=== PATIENT | male | born 1970 | race Caucasian/White ===

== ENCOUNTER 2020-05-28 16:40 | Emergency (ER) | payer OTHER ==
[2020-05-28 16:51] VITALS: BP 118/84; PULSE 109; RESP 18; TEMP 97.7
[2020-05-28] MEDS ORDERED: diphenhydrAMINE 50 MG CAP PO STA (17:17)
[2020-05-28] MEDS ORDERED: CEPHALEXIN 500 MG CAP PO STA (17:18)
[2020-05-28] MEDS ORDERED: predniSONE 20 MG TAB PO STA (17:18)
--- NOTE | 2020-05-28 17:24 | ED ---
General Adult HPI - General Chief complaint: Skin/Abscess/Foreign Body Stated complaint: bug bite Time Seen by Provider: 05/28/20 16:50 Source: patient Mode of arrival: ambulatory Limitations: no limitations - History of Present Illness Initial comments: The patient is a 49-year-old male with no past medical history presents emergency Department after he sustained a bug bite to his right hand. Patient states that he noticed the bite around 10 AM today. He had surrounding swelling. Denies previous history of anaphylactic reaction to a bite. Denies drug use. No nausea or vomiting. No fevers or chills. Denies a sensation that his airway is closing off. Did not take any medications for symptoms. No other alleviating, precipitating or modifying factors - Related Data Previous Rx's Medication Instructions Recorded Docusate [Colace] 100 mg PO BID #30 capsule 01/20/16 Hydrocodone/Acetaminophen [[place] 1 each PO Q6HR PRN #20 tab 02/07/16 5-325] Cephalexin [Keflex] 500 mg PO Q6HR #28 cap 05/28/20 Sulfamethox-Tmp 800-160Mg [Bactrim 2 tab PO Q12HR #28 tab 05/28/20 DS 800-160 mg] diphenhydrAMINE [Benadryl] 25 mg PO TID PRN #20 capsule 05/28/20 Allergies Allergy/AdvReac Type Severity Reaction Status Date / Time Penicillins Allergy Rash/Hives Verified 05/28/20 16:50 Review of Systems ROS Statement: Those systems with pertinent positive or pertinent negative responses have been documented in the HPI. ROS Other: All systems not noted in ROS Statement are negative. Past Medical History Additional Past Medical History / Comment(s): back pain History of Any Multi-Drug Resistant Organisms: MRSA Date of last positivie culture/infection: 2014 MDRO Source:: stomach Past Surgical History: Appendectomy Past Psychological History: No Psychological Hx Reported Smoking Status: Current every day smoker Past Alcohol Use History: None Reported Past Drug Use History: None Reported General Exam Limitations: no limitations General appearance: alert, in no apparent distress Respiratory exam: Present: normal lung sounds bilaterally. Absent: respiratory distress, wheezes, rales, rhonchi, stridor Cardiovascular Exam: Present: regular rate, normal rhythm, normal heart sounds. Absent: systolic murmur, diastolic murmur, rubs, gallop, clicks GI/Abdominal exam: Present: soft, normal bowel sounds. Absent: distended, tenderness, guarding, rebound, rigid Extremities exam: Present: other (dorsal aspect right arm - raised area with central scab measuring 2 x 2 cm consistent with possible developing abscess) Course Vital Signs 05/28/20 05/28/20 16:48 17:40 Temperature 97.7 F 97.7 F Pulse Rate 109 H 109 H Respiratory 18 18 Rate Blood Pressure 118/84 118/84 O2 Sat by Pulse 97 97 Oximetry Medical Decision Making - Medical Decision Making Upon arrival the patient is placed into room 13. A thorough history and physical exam was performed. Evaluation of the patient's hand does reveal a central scab with surrounding cellulitis. I am concerned for infection rather than ALLERGIC reaction. I did give the patient a dose of Benadryl and prednisone as he is concerned about bite. I did recommend treatment with antibiotics for which the patient did agree to. No area of fluctuance needing drainage. The patient was felt that his primary care doctor. Return to the emergency room for any new worsening symptoms. Patient was discharged in stable condition Disposition Clinical Impression: Abscess Disposition: HOME SELF-CARE Condition: Stable Instructions (If sedation given, give patient instructions): Abscess (ED) Additional Instructions: Please follow-up with primary care doctor. Return to the emergency room for any new or worsening symptoms Prescriptions: Sulfamethox-Tmp 800-160Mg [Bactrim DS 800-160 mg] 2 tab PO Q12HR #28 tab diphenhydrAMINE [Benadryl] 25 mg PO TID PRN #20 capsule PRN Reason: Allergic Reaction Cephalexin [Keflex] 500 mg PO Q6HR #28 cap Is patient prescribed a controlled substance at d/c from ED?: No Referrals: None,Stated [Primary Care Provider] - 1-2 days Jack Borja [STAFF PHYSICIAN] - 1-2 days Time of Disposition: 17:24
== END 2020-05-28 17:42 | disposition home or self-care (01) ==
LOC: EC 16:40
DX: L02.511 Cutaneous abscess of right hand (principal); F17.200 Nicotine dependence, unspecified, uncomplicated; Z88.0 Allergy status to penicillin
CPT/HCPCS: 99282; J7512

== ENCOUNTER 2020-11-13 05:33 | Emergency (ER) | payer OTHER ==
[2020-11-13 05:46] VITALS: BP 143/80; PULSE 100; RESP 19; TEMP 97.9
[2020-11-13] MEDS ORDERED: SULFAMETH-TMP DS STARTER PACK 2 TAB BTL PO STA (06:11)
[2020-11-13] MEDS ORDERED: IBUPROFEN 600 MG STARTER PACK 4 TAB BTL PO STA (06:13)
--- NOTE | 2020-11-13 06:14 | ED ---
Skin/Abscess/FB HPI - General Chief complaint: Skin/Abscess/Foreign Body Stated complaint: Possible bug bites Time Seen by Provider: 11/13/20 05:58 Source: patient Mode of arrival: ambulatory - History of Present Illness Initial comments: 50-year-old male patient percents to the emergency department today for evaluation of "spider bite" to the right elbow and the right leg. Patient states that the area to his right elbow started about a week ago. States the area does seem to be improving however he has a new area on the right thigh that started yesterday. States the area to his thigh is painful. Denies any itching. Denies any drainage. States the area to the right elbow is no longer painful. Denies any drainage. Denies any fever or chills patient denies nausea, vomiting. Patient denies any recent rash, cough, shortness of breath, chest pain, abdominal pain, diarrhea, constipation, back pain, numbness, tingling, dizziness, weakness, hematuria, dysuria, urinary urgency, urinary frequency, headache, visual changes, or any other complaints. - Related Data Previous Rx's Medication Instructions Recorded Docusate [Colace] 100 mg PO BID #30 capsule 01/20/16 Hydrocodone/Acetaminophen [[place] 1 each PO Q6HR PRN #20 tab 02/07/16 5-325] Cephalexin [Keflex] 500 mg PO Q6HR #28 cap 05/28/20 Sulfamethox-Tmp 800-160Mg [Bactrim 2 tab PO Q12HR #28 tab 05/28/20 DS 800-160 mg] diphenhydrAMINE [Benadryl] 25 mg PO TID PRN #20 capsule 05/28/20 Ibuprofen [Motrin] 600 mg PO Q8HR PRN #30 tab 11/13/20 Sulfamethoxazole/Trimethoprim 2 tab PO BID #40 tablet 11/13/20 [Bactrim DS 800-160 mg] Allergies Allergy/AdvReac Type Severity Reaction Status Date / Time Penicillins Allergy Rash/Hives Verified 11/13/20 05:46 Review of Systems ROS Statement: Those systems with pertinent positive or pertinent negative responses have been documented in the HPI. ROS Other: All systems not noted in ROS Statement are negative. Past Medical History Additional Past Medical History / Comment(s): back pain History of Any Multi-Drug Resistant Organisms: MRSA Date of last positivie culture/infection: 2014 MDRO Source:: stomach Past Surgical History: Appendectomy Past Psychological History: No Psychological Hx Reported Smoking Status: Current every day smoker Past Alcohol Use History: None Reported Past Drug Use History: None Reported General Exam General appearance: alert, in no apparent distress, other (This is a well- developed, well-nourished adult male patient. Vital signs upon presentation temperature 97.9F, pulse 100, respirations 19, blood pressure 143/80, pulse ox 98% on room air.) Eye exam: Present: normal appearance, PERRL, EOMI. Absent: scleral icterus, conjunctival injection, nystagmus, periorbital swelling ENT exam: Present: normal exam, normal oropharynx, mucous membranes moist Respiratory exam: Present: normal lung sounds bilaterally. Absent: respiratory distress, wheezes, rales, rhonchi, stridor Cardiovascular Exam: Present: regular rate, normal rhythm, normal heart sounds. Absent: systolic murmur, diastolic murmur, rubs, gallop, clicks GI/Abdominal exam: Present: soft, normal bowel sounds. Absent: distended, tenderness, guarding, rebound, rigid Extremities exam: Present: full ROM, normal capillary refill, other (There is erythema, soft tissue swelling to the right elbow and forearm. There is circular area of erythema and swelling with a central scabbed lesion to the right anterior thigh. No drainage of either area. They are warm to touch.). Absent: normal inspection, tenderness, pedal edema, joint swelling, calf tenderness Neurological exam: Present: alert, oriented X3, CN II-XII intact Psychiatric exam: Present: normal affect, normal mood Skin exam: Present: warm, dry, intact, normal color. Absent: rash Course Vital Signs 11/13/20 05:40 Temperature 97.9 F Pulse Rate 100 Respiratory 19 Rate Blood Pressure 143/80 O2 Sat by Pulse 98 Oximetry Medical Decision Making - Medical Decision Making 50-year-old male patient presents to the emergency department today for evaluation of redness, swelling to the right elbow and right thigh. Physical examination did reveal erythema, swelling, warmth to the right elbow and forearm. Area is non-fluctuant. Patient has full range of motion without limitation or pain. Area to the right thigh is tender, non-fluctuant. He is afebrile, vital signs. Patient be started on antibiotics. Injected to apply warm compresses to both areas. He is instructed to follow-up the primary care physician for recheck in 1-2 days. Return parameters were discussed in detail. He verbalizes understanding and agrees with this plan. My attending is Dr. Allison. Disposition Clinical Impression: Abscess Disposition: HOME SELF-CARE Condition: Good Instructions (If sedation given, give patient instructions): Abscess (ED) Additional Instructions: Apply warm compresses to both areas. Complete antibiotic prescriptions in full. Follow up with primary care physician for recheck in 1-2 days. Return to the emergency department for any new, worsening, or concerning symptoms. This primary care physician recommendation also has a walk in clinic. Prescriptions: Sulfamethoxazole/Trimethoprim [Bactrim DS 800-160 mg] 2 tab PO BID #40 tablet Ibuprofen [Motrin] 600 mg PO Q8HR PRN #30 tab PRN Reason: Pain Is patient prescribed a controlled substance at d/c from ED?: No Referrals: Sergio Sow MD [REFERRING] - 1-2 days Time of Disposition: 06:13
== END 2020-11-13 06:23 | disposition home or self-care (01) ==
LOC: EC 05:33
DX: L02.91 Cutaneous abscess, unspecified (principal); F17.200 Nicotine dependence, unspecified, uncomplicated; Z88.0 Allergy status to penicillin
CPT/HCPCS: 99282

== ENCOUNTER 2020-11-16 10:09 | Emergency (ER) | payer OTHER ==
[2020-11-16 10:25] VITALS: RESP 18; TEMP 97.4
[2020-11-16] MEDS ORDERED: LIDOCAINE 1% INJ 10MG/ML (20 ML MDV) SQ ONE (10:44)
[2020-11-16] MEDS ORDERED: BACITRACIN OINT 1 EACH PACKET TOPICAL ONE (10:44)
--- NOTE | 2020-11-16 11:33 | ED ---
Skin/Abscess/FB HPI - General Chief complaint: Skin/Abscess/Foreign Body Stated complaint: spider bite-revisit Time Seen by Provider: 11/16/20 10:31 Source: patient Mode of arrival: ambulatory Limitations: no limitations - History of Present Illness Initial comments: Patient is a 50-year-old male presenting to the emergency Department with complaints of a worsening spider bite on his right leg. Patient states he was here 3 days ago for same complaint. He thinks he has spider bite on his right upper thigh as well as his right elbow. Patient was started on Bactrim and given return parameters. Patient states returns today because he feels like the one on his right upper leg is getting worse. He states the one on his right elbow has improved. He denies any fevers or chills, no nausea or vomiting. He states the area did open up and has been draining slightly over the past 24 hours. He has no further complaints at this time. - Related Data Previous Rx's Medication Instructions Recorded Docusate [Colace] 100 mg PO BID #30 capsule 01/20/16 Hydrocodone/Acetaminophen [[place] 1 each PO Q6HR PRN #20 tab 02/07/16 5-325] Cephalexin [Keflex] 500 mg PO Q6HR #28 cap 05/28/20 Sulfamethox-Tmp 800-160Mg [Bactrim 2 tab PO Q12HR #28 tab 05/28/20 DS 800-160 mg] diphenhydrAMINE [Benadryl] 25 mg PO TID PRN #20 capsule 05/28/20 Ibuprofen [Motrin] 600 mg PO Q8HR PRN #30 tab 11/13/20 Sulfamethoxazole/Trimethoprim 2 tab PO BID #40 tablet 11/13/20 [Bactrim DS 800-160 mg] Cephalexin [Keflex] 500 mg PO Q6HR 10 Days #40 cap 11/16/20 Allergies Allergy/AdvReac Type Severity Reaction Status Date / Time Penicillins Allergy Rash/Hives Verified 11/16/20 10:24 Review of Systems ROS Statement: Those systems with pertinent positive or pertinent negative responses have been documented in the HPI. ROS Other: All systems not noted in ROS Statement are negative. Past Medical History Additional Past Medical History / Comment(s): back pain History of Any Multi-Drug Resistant Organisms: MRSA Date of last positivie culture/infection: 2015 MDRO Source:: stomach Past Surgical History: Appendectomy Additional Past Surgical History / Comment(s): Ear surgery Past Psychological History: No Psychological Hx Reported Smoking Status: Current every day smoker Past Alcohol Use History: None Reported Past Drug Use History: None Reported General Exam - General Exam Comments Initial Comments: GENERAL: Patient is well-developed and well-nourished. Patient is nontoxic and in no acute distress. HEAD: Atraumatic, normocephalic. EYES: Pupils equal round and reactive to light, extraocular movements intact, sclera anicteric, conjunctiva are normal. Eyelids were unremarkable. ENT: TMs normal, nares patent, oropharynx clear without exudates. Moist mucous membranes. NECK: Normal range of motion, supple without lymphadenopathy or JVD. LUNGS: Unlabored respirations. Breath sounds clear to auscultation bilaterally and equal. No wheezes rales or rhonchi. HEART: Regular rate and rhythm without murmurs, rubs or gallops. ABDOMEN: Soft, nontender, normoactive bowel sounds. No guarding, no rebound. No masses appreciated. : Deferred MUSCULOSKELETAL: Normal extremities with adequate strength and normal range of motion, no pitting or edema. No clubbing or cyanosis. NEUROLOGICAL: Patient is alert and oriented x 3. Motor and sensory are also intact. Cranial nerves II through XII grossly intact. Symmetrical smile. Normal speech, normal gait. PSYCH: Normal mood, normal affect. SKIN: Warm, Dry, normal turgor, no rashes. Patient has a 2 cm abscess of the right anterior thigh, there is lots of induration around the area, very little fluctuance. There is lots of surrounding erythema, warmth to the area. He also has a wound to his right elbow which is improved, no active drainage, no pain or erythema. Limitations: no limitations Course Vital Signs 11/16/20 11/16/20 10:20 11:46 Temperature 97.4 F L Pulse Rate 84 95 Respiratory 18 18 Rate Blood Pressure 125/77 118/81 O2 Sat by Pulse 97 98 Oximetry Procedures - Incision & Drainage Consent Obtained: verbal consent, written consent Indication: Abscess Site: lower extremity (Right anterior thigh) Size (cm): 2 Anesthetic Used: lidocaine 1% Amount (mLs): 2 I&D Cleaning Method: Alcohol Wipe Scalpel Used: #11 Patient Tolerated Procedure: well Medical Decision Making - Medical Decision Making Patient is a 50-year-old male here for worsening abscess on his right anterior thigh. He was here 3 days ago, started on Bactrim. Exam today is consistent with an abscess, however there is lots of induration, I did perform an I&D which revealed very little purulent fluid. I recommended adding Keflex to his medications, recommended warm compresses to the area to allow the area of the dr cottrell. The patient is in agreement this plan of care. He is stable for discharge. He will follow up with his primary care physician. Return parameters were discussed with them and they verbalized understanding. Case discussed Dr. Cee. Disposition Clinical Impression: Abscess of right thigh Disposition: HOME SELF-CARE Condition: Stable Instructions (If sedation given, give patient instructions): Abscess Incision and Drainage (ED) Additional Instructions: Please return to the Emergency Department if symptoms worsen or any other concerns. Continue taking Bactrim as prescribed, add Keflex. Please do warm compresses to right thigh as discussed. Follow-up with your primary care physician. Prescriptions: Cephalexin [Keflex] 500 mg PO Q6HR 10 Days #40 cap Is patient prescribed a controlled substance at d/c from ED?: No Referrals: None,Stated [Primary Care Provider] - 1-2 days Time of Disposition: 11:33
[2020-11-16 11:47] VITALS: BP 118/81; PULSE 95
== END 2020-11-16 11:46 | disposition home or self-care (01) ==
LOC: EC 10:09
DX: L02.415 Cutaneous abscess of right lower limb (principal); F17.200 Nicotine dependence, unspecified, uncomplicated; Z88.0 Allergy status to penicillin
CPT/HCPCS: 99282; 10060; J2001

== ENCOUNTER 2021-01-05 22:49 | Emergency (ER) | payer OTHER ==
[2021-01-05 22:58] VITALS: BP 145/94; PULSE 125; RESP 22; TEMP 97.7
--- NOTE | 2021-01-05 23:45 | ED ---
Psych HPI - General Chief Complaint: Psychiatric Symptoms Stated Complaint: Mental health Time Seen by Provider: 01/05/21 23:01 Source: patient, RN notes reviewed, old records reviewed Mode of arrival: ambulatory Limitations: no limitations - History of Present Illness Initial Comments: This is a 50-year-old male DF for evaluation patient Dese for evaluation multiple complaints here pain psychiatric illness depression and suicide is been seen prior similar issues. Denying drug or alcohol use today. Patient emotional during questioning patient states he just no longer likes life MD Complaint: suicidal ideation, feels depressed -: unknown Associated Psychiatric Symptoms: depression, suicidal ideation, racing thoughts History of same: Yes Quality: intermittent Improves With: none Worsens With: none Context: significant life stressor Associated Symptoms: denies other symptoms Treatments Prior to Arrival: placed on mental health hold If Self Harm: admits thoughts of self harm - Related Data Home Medications Medication Instructions Recorded Confirmed No Known Home Medications 01/06/21 01/06/21 Allergies Allergy/AdvReac Type Severity Reaction Status Date / Time Penicillins Allergy Rash/Hives Verified 01/06/21 10:27 Review of Systems ROS Statement: Those systems with pertinent positive or pertinent negative responses have been documented in the HPI. ROS Other: All systems not noted in ROS Statement are negative. Past Medical History Additional Past Medical History / Comment(s): back pain, diabetic but on no meds History of Any Multi-Drug Resistant Organisms: MRSA Date of last positivie culture/infection: 2014 MDRO Source:: stomach Past Surgical History: Appendectomy Additional Past Surgical History / Comment(s): Ear surgery, skull sx Past Psychological History: Unable to Obtain Smoking Status: Current every day smoker Past Alcohol Use History: None Reported Past Drug Use History: None Reported General Exam Limitations: no limitations General appearance: alert, in no apparent distress, anxious Head exam: Present: atraumatic, normocephalic, normal inspection Eye exam: Present: normal appearance, PERRL, EOMI. Absent: scleral icterus, conjunctival injection, periorbital swelling ENT exam: Present: normal exam, mucous membranes moist Neck exam: Present: normal inspection. Absent: tenderness, meningismus, lymphadenopathy Respiratory exam: Present: normal lung sounds bilaterally. Absent: respiratory distress, wheezes, rales, rhonchi, stridor Cardiovascular Exam: Present: normal rhythm, tachycardia, normal heart sounds. Absent: systolic murmur, diastolic murmur, rubs, gallop, clicks GI/Abdominal exam: Present: soft, normal bowel sounds. Absent: distended, tenderness, guarding, rebound, rigid Extremities exam: Present: normal inspection, full ROM, normal capillary refill. Absent: tenderness, pedal edema, joint swelling, calf tenderness Back exam: Present: normal inspection Neurological exam: Present: alert, oriented X3, CN II-XII intact Psychiatric exam: Present: normal affect, normal mood Skin exam: Present: warm, dry, intact, normal color. Absent: rash Course Vital Signs 01/05/21 22:51 Temperature 97.7 F Pulse Rate 125 H Respiratory 22 Rate Blood Pressure 145/94 O2 Sat by Pulse 100 Oximetry - Reevaluation(s) Reevaluation #1: Medical record is reviewed Patient symptoms are improved here in the ER Patient informed results and questions answered Medical Decision Making - Medical Decision Making 50 male DF for evaluation, patient presents today for evaluation of in stable for discharge home not currently homicidal or suicidal Disposition Clinical Impression: Depression Disposition: HOME SELF-CARE Condition: Fair Instructions (If sedation given, give patient instructions): Depression (ED) Is patient prescribed a controlled substance at d/c from ED?: No Referrals: None,Stated [Primary Care Provider] - 1-2 days
== END 2021-01-05 23:15 | disposition home or self-care (01) ==
LOC: EC 22:49
DX: F32.9 Major depressive disorder, single episode, unspecified (principal); Z90.89 Acquired absence of other organs; F17.200 Nicotine dependence, unspecified, uncomplicated
CPT/HCPCS: 99284

== ENCOUNTER 2021-01-06 06:32 | Inpatient (IN) | payer MEDICAID, OTHER ==
--- NOTE | 2021-01-06 07:35 | ED ---
General Adult HPI - General Chief complaint: Psychiatric Symptoms Stated complaint: Mental Health Time Seen by Provider: 01/06/21 06:42 Source: patient Mode of arrival: ambulatory Limitations: no limitations - History of Present Illness Initial comments: 50-year-old male with a past medical history of back pain, diabetes presents to the emergency room for a chief complaint of mental health evaluation. Patient reporting he is depressed. He feels like he can do nothing right. He states his mother is dying. This is patient's third visit in the emergency room, keeps leaving before being evaluated. He is denying homicidal or suicidal thoughts at this time. Patient has no other complaints at this time including shortness of breath, chest pain, abdominal pain, nausea or vomiting, headache, or visual changes. - Related Data Home Medications Medication Instructions Recorded Confirmed No Known Home Medications 01/06/21 01/06/21 Allergies Allergy/AdvReac Type Severity Reaction Status Date / Time Penicillins Allergy Rash/Hives Verified 01/06/21 10:27 Review of Systems ROS Statement: Those systems with pertinent positive or pertinent negative responses have been documented in the HPI. ROS Other: All systems not noted in ROS Statement are negative. Past Medical History Additional Past Medical History / Comment(s): back pain, diabetic but on no meds History of Any Multi-Drug Resistant Organisms: MRSA Date of last positivie culture/infection: 2014 MDRO Source:: stomach Past Surgical History: Appendectomy Additional Past Surgical History / Comment(s): Ear surgery, skull sx Past Psychological History: Unable to Obtain Smoking Status: Current every day smoker Past Alcohol Use History: None Reported Past Drug Use History: None Reported General Exam Limitations: no limitations General appearance: alert, in no apparent distress Head exam: Present: atraumatic, normocephalic, normal inspection Eye exam: Present: normal appearance, PERRL, EOMI. Absent: scleral icterus, conjunctival injection, periorbital swelling ENT exam: Present: normal exam, mucous membranes moist Neck exam: Present: normal inspection, full ROM. Absent: tenderness, meningismus, lymphadenopathy Respiratory exam: Present: normal lung sounds bilaterally. Absent: respiratory distress, wheezes, rales, rhonchi, stridor Cardiovascular Exam: Present: regular rate, normal rhythm, normal heart sounds. Absent: systolic murmur, diastolic murmur, rubs, gallop, clicks GI/Abdominal exam: Present: soft, normal bowel sounds. Absent: distended, tenderness, guarding, rebound, rigid Neurological exam: Present: alert Course Vital Signs 01/06/21 06:37 Temperature 98.3 F Pulse Rate 86 Respiratory 20 Rate Blood Pressure 124/90 O2 Sat by Pulse 98 Oximetry Medical Decision Making - Medical Decision Making Patient was seen by EPS, recommending inpatient management. patient will sign self in. - Lab Data Lab Results 01/06/21 01/06/21 Range/Units 10:41 11:01 Urine Opiates Screen Not Detected (NotDetected) Ur Oxycodone Screen Not Detected (NotDetected) Urine Methadone Screen Not Detected (NotDetected) Ur Propoxyphene Screen Not Detected (NotDetected) Ur Barbiturates Screen Not Detected (NotDetected) U Tricyclic Antidepress Not Detected (NotDetected) Ur Phencyclidine Scrn Not Detected (NotDetected) Ur Amphetamines Screen Detected H (NotDetected) U Methamphetamines Scrn Detected H (NotDetected) U Benzodiazepines Scrn Not Detected (NotDetected) Urine Cocaine Screen Not Detected (NotDetected) U Marijuana (THC) Screen Not Detected (NotDetected) Coronavirus (PCR) Not Detected (Not Detectd) Disposition Clinical Impression: Depression Disposition: TRANSFER TO PSYCH HOSP/UNIT Is patient prescribed a controlled substance at d/c from ED?: No Referrals: None,Stated [Primary Care Provider] - 1-2 days Time of Disposition: 11:32
[2021-01-06 11:23] LABS: Amphetamine Screen,Urine Detected (NotDetected); Barbiturate Screen,Urine Not Detected (NotDetected); Benzodiazepines Screen,Urine Not Detected (NotDetected); Cocaine Screen,Urine Not Detected (NotDetected); Methadone Screen, Urine Not Detected (NotDetected); Opiate Screen,Urine Not Detected (NotDetected); Oxycodone Screen, Urine Not Detected (NotDetected); Phencyclidine Screen,Urine Not Detected (NotDetected); Tricyclic Antidepressant,Urine Not Detected (NotDetected); Urn Cannabinoid Scrn Not Detected (NotDetected)
[2021-01-06] MEDS ORDERED: IBUPROFEN 600 MG TAB PO STA (15:18)
[2021-01-06 16:44] VITALS: BP 117/74; PULSE 85; RESP 16; TEMP 98
[2021-01-06] MEDS ORDERED: HALOPERIDOL LACTATE 5 MG/ML 1 ML VIAL IM PRN (16:56)
[2021-01-06] MEDS ORDERED: LORazepam 2 MG/ML INJ IM PRN (16:57)
[2021-01-06] MEDS ORDERED: LORazepam 1 MG TAB PO PRN (16:57)
[2021-01-06] MEDS ORDERED: MAGNESIUM HYDROXIDE 2,400 MG/10 ML CUP PO PRN (16:59)
[2021-01-06] MEDS ORDERED: MAG HYDROX/AL HYDROX/SIMETH 30 ML CUP PO PRN (16:59)
[2021-01-06] MEDS ORDERED: ACETAMINOPHEN TAB 325 MG TAB PO PRN (16:59)
[2021-01-06] MEDS: NICOTINE 14MG/24HR PATCH TRANSDERM SCH (18:05)
[2021-01-06] MEDS ORDERED: HALOPERIDOL LACTATE 5 MG/ML 1 ML VIAL IM ONE (20:00)
[2021-01-06] MEDS ORDERED: LORazepam 2 MG/ML INJ IM STA (20:00)
[2021-01-06] MEDS ORDERED: diphenhydrAMINE 50 MG/ML 1 ML VIAL IM STA (20:01)
--- NOTE | 2021-01-06 22:32 | P.PN ---
Progress Note - Text Progress Note Date: 01/06/21 The patient refused to answer questions or to be evaluated.
--- NOTE | 2021-01-07 12:03 | P.HP ---
Psychiatric H&P - . H&P Date: 01/07/21 History & Physical: Allergies Allergy/AdvReac Type Severity Reaction Status Date / Time Penicillins Allergy Rash/Hives Verified 01/06/21 10:27 Vital Signs Temp 98.0 F 01/06/21 16:15 Pulse 85 01/06/21 16:15 Resp 16 01/06/21 16:15 BP 117/74 01/06/21 16:15 Pulse Ox 98 01/06/21 16:15 Intake & Output 01/06/21 01/07/21 01/07/21 18:59 06:59 18:59 Weight 77.7 kg Laboratory Last Values Urine Opiates Screen Not Detected (NotDetected) 01/06/21 11:01 Ur Oxycodone Screen Not Detected (NotDetected) 01/06/21 11:01 Urine Methadone Screen Not Detected (NotDetected) 01/06/21 11:01 Ur Propoxyphene Screen Not Detected (NotDetected) 01/06/21 11:01 Ur Barbiturates Screen Not Detected (NotDetected) 01/06/21 11:01 U Tricyclic Antidepress Not Detected (NotDetected) 01/06/21 11:01 Ur Phencyclidine Scrn Not Detected (NotDetected) 01/06/21 11:01 Ur Amphetamines Screen Detected (NotDetected) H 01/06/21 11:01 U Methamphetamines Scrn Detected (NotDetected) H 01/06/21 11:01 U Benzodiazepines Scrn Not Detected (NotDetected) 01/06/21 11:01 Urine Cocaine Screen Not Detected (NotDetected) 01/06/21 11:01 U Marijuana (THC) Screen Not Detected (NotDetected) 01/06/21 11:01 Coronavirus (PCR) Not Detected (Not Detectd) 01/06/21 10:41 01/07/21 11:55 IDENTIFYING DATA: Patient is a Single, employed, 50-year-old male who presented to the emergency department with a chief complaint of suicidal ideation HPI: Patient presented to the hospital On 01/06/21. The patient resented to the emergency department 3 times over the past 2 nights but would leave AMA without being seen or evaluated. As previously noted, the patient stated "I wouldn't leave me here. I wouldn't trust me." He was noted to be very tearful and emotional in the emergency department. He was also noted to note multiple's major stresses in his life including his mother's health, and his friends doing a significant amount of money for him. Urinary drug screen was positive for methamphetamines and amphetamines. When admitted to the psychiatric unit, the patient became very agitated and requested to leave. He required Haldol, Ativan, and Benadryl for sedation. This morning, the patient is not reporting any significant symptoms of depression or anxiety at this time. He is not endorsing any suicidal or homicidal ideation, intention, and/or plan. He reports no prior times at suicide. He expresses strong desire to live for himself and for his family. He expresses that he shortly desires to go back to work. 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 He is denying any auditory or visual hallucinations. He reports no current or other delusions. The patient states that he'll be fine if he just goes home. When asked about the reasons for his admission, the patient states that he was just not in the record from a minute but that he is much better now. PAST PSYCHIATRIC HISTORY: The patient reports no prior psychiatric history. He denies any previous inpatient psychiatric hospitalizations. He denies any past psychotropic medications. PMH: Additional Past Medical History / Comment(s): back pain, diabetic but on no meds History of Any Multi-Drug Resistant Organisms: MRSA Date of last positivie culture/infection: 2014 MDRO Source:: stomach Past Surgical History: Appendectomy Additional Past Surgical History / Comment(s): Ear surgery, skull sx Past Psychological History: Unable to Obtain Smoking Status: Current every day smoker Past Alcohol Use History: None Reported Past Drug Use History: None Reported ALLERGIES: Penicillins CHEMICAL DEPENDENCY HISTORY: The patient reports he smokes half pack per day of tobacco. He denies any alcohol use. Although he denies any illicit drug use, he did test positive for methamphetamines. FAMILY PSYCHIATRIC/SUBSTANCE USE HISTORY: Unable to assess SOCIAL HISTORY: Patient was born and raised in [place], [place]. 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 He currently lives with his parents. He is single, never , and has no children. MENTAL STATUS EXAM: General Appearance: Patient appears to be stated age is alert, directable, and attempts to cooperate. Patient appears to have Fair hygiene and grooming. The patient has multiple tattoos. Behavior: Patient is seated without any agitated behavior. Patient is calmly lying down in bed. Eye contact is poor. Speech: Patient's speech is fluent and nonpressured. Mood/Affect: Patient reports their mood is "Feeling fine." Affect is nonchalant, euthymic, with appropriate range. Suicidality/Homicidality: Patient vehemently denies any suicidal or homicidal ideation, intention, and/or plan. Perceptions: Patient denies any visual hallucinations and denies any auditory hallucinations Though content/process: There is no evidence of any delusional thought content and thought process is linear and goal-directed. Memory and concentration: AOX3, grossly intact for the purposes of this session. Can spell "WORLD" backwards Judgment and insight: Fair STRENGTHS/WEAKNESSES: Strength is that the patient is employed, has stable housing, and no prior attempts at suicide. Weakness is that the patient engages in substance abuse and appears to lack coping skills. INTELLECT: average IMPRESSIONS: Adjustment disorder PLAN: -Patient is admitted under voluntary status to [facility] for stabilization of psychiatric symptoms and safety. -The patient is currently not spying any criteria for inpatient psychiatric hospitalization. Subsequently, we will discharge the patient today. He is future oriented, gainfully employed, and expresses strong desire to live. He has no prior attempts at suicide. He is psychiatrically cleared for discharge. -We will not start any medications. Recommend with patient follow-up with patricia mckinney primary care provider 01/07/21 11:59
--- NOTE | 2021-01-07 12:57 | P.DS ---
Providers Date of admission: 01/06/21 15:56 Expected date of discharge: 01/07/21 Attending physician: Renan Levy MD Consults: 01/06/21 16:59 Consult Physician Routine Consulting Provider: Lacho Pena Consult Reason/Comments: history and physical/medical management Do you want consulting provider notified?: Yes Primary care physician: Stated None - Discharge Diagnosis(es) (1) Adjustment disorder Current Visit: Yes Status: Acute Priority: High (2) Methamphetamine abuse Current Visit: Yes Status: Acute Priority: Medium Hospital Course: Admission HPI: Patient is a single, employed, 50-year-old male who presented to the emergency department with a chief complaint of suicidal ideation Patient presented to the hospital On 01/06/21. The patient resented to the emergency department 3 times over the past 2 nights but would leave AMA without being seen or evaluated. As previously noted, the patient stated "I wouldn't leave me here. I wouldn't trust me." He was noted to be very tearful and emotional in the emergency department. He was also noted to note multiple's major stresses in his life including his mother's health, and his friends doing a significant amount of money for him. Urinary drug screen was positive for methamphetamines and amphetamines. When admitted to the psychiatric unit, the patient became very agitated and requested to leave. He required Haldol, Ativan, and Benadryl for sedation. This morning, the patient is not reporting any significant symptoms of depression or anxiety at this time. He is not endorsing any suicidal or homicidal ideation, intention, and/or plan. He reports no prior times at suicide. He expresses strong desire to live for himself and for his family. He expresses that he shortly desires to go back to work. 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 He is denying any auditory or visual hallucinations. He reports no current or other delusions. The patient states that he'll be fine if he just goes home. When asked about the reasons for his admission, the patient states that he was just not in the record from a minute but that he is much better now. Hospital course: Upon admission to the unit, the patient was noted to be agitated and requesting to leave. He was difficult to direct and required IM medication for intervention. Upon evaluation the following morning, the patient is calm, cooperative, and continues to request to leave. Given his history, the patient is not reporting any suicidal or homicidal ideation, intention, and/or plan. He is not reporting any auditory or visual hallucinations. He is future oriented and is wishing to go back to work. He vehemently denies any suicidal thoughts or prior attempts at suicide. He reports that he lives with his parents and is a strong desire to be back with them. Mental status exam: General Appearance: Patient appears to be stated age is alert, directable, and attempts to cooperate. Patient appears to have Fair hygiene and grooming. The patient has multiple tattoos. Behavior: Patient is seated without any agitated behavior. Patient is calmly lying down in bed. Eye contact is poor. Speech: Patient's speech is fluent and nonpressured. Mood/Affect: Patient reports their mood is "Feeling fine." Affect is nonchalant, euthymic, with appropriate range. Suicidality/Homicidality: Patient vehemently denies any suicidal or homicidal ideation, intention, and/or plan. Perceptions: Patient denies any visual hallucinations and denies any auditory hallucinations Though content/process: There is no evidence of any delusional thought content and thought process is linear and goal-directed. Memory and concentration: AOX3, grossly intact for the purposes of this session. Can spell "WORLD" backwards Judgment and insight: Fair Impression: Adjustment disorder with depressed mood Methamphetamine abuse Plan: -Continue with discharge today as patient has improved and stabilized psyc hiatrically and is not currently an imminent threat to himself and/or others. Patient will remain at chronically elevated risk for harm to self and/or others due to his impulsivity and polysubstance abuse. He has numerous protective factors including no prior attempts at suicide, stable housing, supportive family,Gainful employment and future orientation -No medications. -Patient was counseled on the need for medication compliance and appropriate follow-up at mental health and also primary care for medical issues. -Patient signed out AMA. Vital Signs Temp 98.0 F 01/06/21 16:15 Pulse 85 01/06/21 16:15 Resp 16 01/06/21 16:15 BP 117/74 01/06/21 16:15 Pulse Ox 98 01/06/21 16:15 Intake & Output 01/06/21 01/07/21 01/07/21 18:59 06:59 18:59 Weight 77.7 kg Laboratory Results Urine Opiates Screen Not Detected (NotDetected) 01/06/21 11:01 Ur Oxycodone Screen Not Detected (NotDetected) 01/06/21 11:01 Urine Methadone Screen Not Detected (NotDetected) 01/06/21 11:01 Ur Propoxyphene Screen Not Detected (NotDetected) 01/06/21 11:01 Ur Barbiturates Screen Not Detected (NotDetected) 01/06/21 11:01 U Tricyclic Antidepress Not Detected (NotDetected) 01/06/21 11:01 Ur Phencyclidine Scrn Not Detected (NotDetected) 01/06/21 11:01 Ur Amphetamines Screen Detected (NotDetected) H 01/06/21 11:01 U Methamphetamines Scrn Detected (NotDetected) H 01/06/21 11:01 U Benzodiazepines Scrn Not Detected (NotDetected) 01/06/21 11:01 Urine Cocaine Screen Not Detected (NotDetected) 01/06/21 11:01 U Marijuana (THC) Screen Not Detected (NotDetected) 01/06/21 11:01 Coronavirus (PCR) Not Detected (Not Detectd) 01/06/21 10:41 Patient Condition at Discharge: Stable Plan - Discharge Summary Discharge Rx Participant: No New Discharge Prescriptions: No Action No Known Home Medications Discharge Medication List No Known Home Medications 01/06/21 [History] Follow up Appointment(s)/Referral(s): None,Stated [Primary Care Provider] - 1-2 days Discharge Disposition: HOME SELF-CARE
[2021-01-07] MEDS: NICOTINE 14MG/24HR PATCH TRANSDERM SCH (14:49)
== END 2021-01-07 15:16 | disposition home or self-care (01) | DRG 881 ==
LOC: EC 06:32 → 3MHU 15:56
PROVIDERS: ADMIT Psychiatry & Neurology Psychiatry; ATTEND Psychiatry & Neurology Psychiatry
DX: F43.21 Adjustment disorder with depressed mood (principal); R45.851 Suicidal ideations; E11.9 Type 2 diabetes mellitus without complications; F15.10 Other stimulant abuse, uncomplicated; F17.210 Nicotine dependence, cigarettes, uncomplicated; Z20.822 Contact with and (suspected) exposure to COVID-19
CPT/HCPCS: 80306; 82075; 87635; 99284

== ENCOUNTER 2021-03-19 20:26 | Emergency (ER) | payer OTHER ==
[2021-03-19 20:45] VITALS: BP 123/89; PULSE 100; RESP 19; TEMP 98
[2021-03-19] MEDS ORDERED: methylPREDNISolone SOD SUCCI 125 MG/2 ML VIAL IM ONE (21:07)
--- NOTE | 2021-03-19 21:25 | ED ---
Skin/Abscess/FB HPI - General Chief complaint: Skin/Abscess/Foreign Body Stated complaint: Bee Sting Time Seen by Provider: 03/19/21 20:49 Source: patient, RN notes reviewed Mode of arrival: ambulatory - History of Present Illness Initial comments: Patient is a 50-year-old male that presents to emergency department complaining of a bee sting to the left elbow and right thumb. He notes this happened approximately 2 days ago. He notes that it is still pretty tender, he denied any shortness of breath difficulty breathing swallowing or eating. Patient was asking for pain medication. Patient denied any other issues or complaints at this time. He denied any chest pain headache nausea vomiting diarrhea constipation fever fatigue chills. - Related Data Home Medications Medication Instructions Recorded Confirmed No Known Home Medications 01/06/21 01/06/21 Allergies Allergy/AdvReac Type Severity Reaction Status Date / Time Penicillins Allergy Rash/Hives Verified 03/19/21 20:45 Review of Systems ROS Statement: Those systems with pertinent positive or pertinent negative responses have been documented in the HPI. ROS Other: All systems not noted in ROS Statement are negative. Past Medical History Additional Past Medical History / Comment(s): back pain, diabetic but on no meds History of Any Multi-Drug Resistant Organisms: MRSA Date of last positivie culture/infection: 2014 MDRO Source:: stomach Past Surgical History: Appendectomy Additional Past Surgical History / Comment(s): Ear surgery, skull sx Past Psychological History: Unable to Obtain Smoking Status: Current every day smoker Past Alcohol Use History: None Reported Past Drug Use History: None Reported General Exam General appearance: alert, in no apparent distress, appears intoxicated Head exam: Present: atraumatic, normocephalic, normal inspection Eye exam: Present: normal appearance, PERRL, EOMI. Absent: scleral icterus, conjunctival injection, periorbital swelling Neck exam: Present: normal inspection Respiratory exam: Present: normal lung sounds bilaterally. Absent: respiratory distress, wheezes, rales, rhonchi, stridor Cardiovascular Exam: Present: regular rate, normal rhythm, normal heart sounds. Absent: systolic murmur, diastolic murmur, rubs, gallop, clicks Extremities exam: Present: normal inspection, full ROM, normal capillary refill. Absent: tenderness, pedal edema, joint swelling, calf tenderness Neurological exam: Present: alert, oriented X3 Psychiatric exam: Present: normal affect, normal mood Skin exam: Present: warm, dry, intact, normal color, erythema (Small 3 cm x 3 similar patchy erythema to the left elbow, nontender. Small 1 cm x 1 cm patch of erythema to right thumb, nontender.). Absent: rash Course Vital Signs 03/19/21 20:43 Temperature 98 F Pulse Rate 100 Respiratory 19 Rate Blood Pressure 123/89 O2 Sat by Pulse 98 Oximetry Medical Decision Making - Medical Decision Making 50-year-old male with 2 bee stings want the left elbow and one to the right thumb. 125 mg of Solu-Medrol, 1000 mg of Tylenol, 50 mg of Benadryl ordered. Case discussed with Dr. Milian, patient discharge home. Disposition Clinical Impression: Bee sting Disposition: HOME SELF-CARE Condition: Stable Instructions (If sedation given, give patient instructions): Insect Bite or Sting (ED) Additional Instructions: Please return to the Emergency Department if symptoms worsen or any other concerns. Is patient prescribed a controlled substance at d/c from ED?: No Referrals: None,Stated [Primary Care Provider] - 1-2 days Time of Disposition: 21:25
[2021-03-19] MEDS: ACETAMINOPHEN TAB 500 MG TAB PO STA ×2 (21:26→21:32)
[2021-03-19] MEDS: diphenhydrAMINE 50 MG CAP PO STA ×2 (21:26→21:32)
== END 2021-03-19 21:54 | disposition home or self-care (01) ==
LOC: EC 20:26
DX: T63.441A Toxic effect of venom of bees, accidental (unintentional), initial encounter (principal); E11.9 Type 2 diabetes mellitus without complications; F17.200 Nicotine dependence, unspecified, uncomplicated; Z88.0 Allergy status to penicillin; Z90.49 Acquired absence of other specified parts of digestive tract
CPT/HCPCS: 99282

== ENCOUNTER 2021-05-16 12:42 | Emergency (ER) | payer OTHER ==
[2021-05-16 13:05] VITALS: TEMP 98.7
--- NOTE | 2021-05-16 14:24 | ED ---
General Adult HPI - General Chief complaint: Upper Respiratory Infection Stated complaint: headache & abd pain Time Seen by Provider: 05/16/21 13:40 Source: patient Mode of arrival: ambulatory Limitations: no limitations - History of Present Illness Initial comments: 50-year-old male presents to the emergency department with complaints of headache, body aches, shortness of breath, and cough. Patient states he was diagnosed with COVID on May 09 and was hospitalized at [facility] for 7 days related to this diagnosis, then discharged on Monday. Patient states he did not receive any treatment for his condition and arrives today demanding "the antidote." Patient is most bothered by his headache, but states he has not taken anything for it. Patient states he is feeling short of breath with any activity, but denies chest pain, nausea, vomiting, diarrhea, dysuria, or hematuria. - Related Data Home Medications Medication Instructions Recorded Confirmed No Known Home Medications 01/06/21 01/06/21 Allergies Allergy/AdvReac Type Severity Reaction Status Date / Time Penicillins Allergy Rash/Hives Verified 05/16/21 13:05 Review of Systems ROS Statement: Those systems with pertinent positive or pertinent negative responses have been documented in the HPI. ROS Other: All systems not noted in ROS Statement are negative. Past Medical History Additional Past Medical History / Comment(s): back pain, diabetic but on no meds, covid History of Any Multi-Drug Resistant Organisms: MRSA Date of last positivie culture/infection: 2014 MDRO Source:: stomach Past Surgical History: Appendectomy Additional Past Surgical History / Comment(s): Ear surgery, skull sx Past Psychological History: Unable to Obtain Smoking Status: Former smoker Past Alcohol Use History: None Reported Past Drug Use History: None Reported General Exam Limitations: no limitations General appearance: alert, in no apparent distress Respiratory exam: Present: normal lung sounds bilaterally. Absent: respiratory distress, wheezes, rales, rhonchi, stridor Cardiovascular Exam: Present: regular rate, normal rhythm, normal heart sounds. Absent: systolic murmur, diastolic murmur, rubs, gallop, clicks GI/Abdominal exam: Present: soft, normal bowel sounds. Absent: distended, tenderness, guarding, rebound, rigid Neurological exam: Present: alert, oriented X3, CN II-XII intact Psychiatric exam: Present: agitated Skin exam: Present: warm, dry, intact, normal color. Absent: rash Course Vital Signs 05/16/21 05/16/21 13:02 15:27 Temperature 98.7 F Pulse Rate 109 H 96 Respiratory 20 18 Rate Blood Pressure 123/91 133/86 O2 Sat by Pulse 98 96 Oximetry - Reevaluation(s) Reevaluation #1: 05/16/21 14:30 Patient became very agitated and hostile during exam due to what he perceived was a lack of willingness to help. This provider attempted to explain viral illness and course of treatment, then exited the room to allow patient to calm down. 05/16/21 15:12 Patient reevaluated and is cooperative when offered treatment plan Medical Decision Making - Medical Decision Making 50-year-old male with a recent diagnosis of COVID-19, presents to the emergency department for evaluation of ongoing symptoms. Upon exam, patient appears to be resting comfortably in no distress. During evaluation, however, patient did become quite agitated and hostile. Patient was given space to calm down. Physical exam was negative for any acute findings. Vital signs stable. He did receive IV fluids and Toradol for his headache. He tolerated this course of treatment well with no adverse side effects. Patient was agreeable to receiving monoclonal antibody infusion, however patient did elope from the ER prior to receiving this infusion. This patient's case was discussed with my attending Dr. Cee. - Lab Data Result diagrams: 05/16/21 15:26 05/16/21 15:26 Lab Results 05/16/21 05/16/21 Range/Units 15:26 15:26 WBC 10.1 (3.8-10.6) k/uL RBC 5.08 (4.30-5.90) m/uL Hgb 14.3 (13.0-17.5) gm/dL Hct 43.3 (39.0-53.0) % MCV 85.2 (80.0-100.0) fL MCH 28.1 (25.0-35.0) pg MCHC 33.0 (31.0-37.0) g/dL RDW 14.1 (11.5-15.5) % Plt Count 305 (150-450) k/uL MPV 7.5 Neutrophils % 76 % Lymphocytes % 12 % Monocytes % 7 % Eosinophils % 2 % Basophils % 1 % Neutrophils # 7.7 (1.3-7.7) k/uL Lymphocytes # 1.2 (1.0-4.8) k/uL Monocytes # 0.7 (0-1.0) k/uL Eosinophils # 0.2 (0-0.7) k/uL Basophils # 0.1 (0-0.2) k/uL Sodium 132 L (137-145) mmol/L Potassium 4.7 (3.5-5.1) mmol/L Chloride 102 (98-107) mmol/L Carbon Dioxide 23 (22-30) mmol/L Anion Gap 7 mmol/L BUN 20 (9-20) mg/dL Creatinine 0.55 L (0.66-1.25) mg/dL Est GFR (CKD-EPI)AfAm >90 (>60 ml/min/1.73 sqM) Est GFR (CKD-EPI)NonAf >90 (>60 ml/min/1.73 sqM) Glucose 192 H (74-99) mg/dL Calcium 8.2 L (8.4-10.2) mg/dL Disposition Clinical Impression: COVID-19 Disposition: HOME SELF-CARE Condition: Stable Instructions (If sedation given, give patient instructions): Coronavirus Disease 2019 (COVID-19) Additional Instructions: Continue to treat COVID symptomatically. Alternate Tylenol and Motrin as needed for fever and discomfort. Follow-up with your primary care provider for a recheck in the next 1-2 days. Return to the emergency department with any new, worsening, or concerning symptoms. Is patient prescribed a controlled substance at d/c from ED?: No Referrals: None,Stated [Primary Care Provider] - 1-2 days Time of Disposition: 17:00
[2021-05-16] MEDS ORDERED: SODIUM CHLORIDE 0.9% 1,000 ML IV ONE (15:11)
[2021-05-16] MEDS ORDERED: KETOROLAC 15 MG/ML 1 ML VIAL IVP STA (15:11)
[2021-05-16 15:27] VITALS: BP 133/86; PULSE 96; RESP 18
[2021-05-16 15:33] LABS: Basophils # (A) 0.1 k/uL (0-0.2); Basophils % (A) 1 %; Eosinophils # (A) 0.2 k/uL (0-0.7); Eosinophils % (A) 2 %; HCT 43.3 % (39.0-53.0); HGB 14.3 gm/dL (13.0-17.5); Lymphocytes # (A) 1.2 k/uL (1.0-4.8); Lymphocytes % (A) 12 %; MCH 28.1 pg (25.0-35.0); MCV 85.2 fL (80.0-100.0); Mean Platelet Volume 7.5; Monocytes # (A) 0.7 k/uL (0-1.0); Monocytes % (A) 7 %; Neutrophils # (A) 7.7 k/uL (1.3-7.7); Neutrophils % (A) 76 %; Platelet Count 305 k/uL (150-450); RBC 5.08 m/uL (4.30-5.90); RDW 14.1 % (11.5-15.5); WBC 10.1 k/uL (3.8-10.6)
[2021-05-16 15:46] LABS: African American GFR (CKD) >90 (>60 ml/min/1.73 sqM); Anion Gap 7 mmol/L; Blood Urea Nitrogen 20 mg/dL (9-20); Calcium 8.2 mg/dL (8.4-10.2); Carbon Dioxide 23 mmol/L (22-30); Chloride 102 mmol/L (98-107); Glucose 192 mg/dL (74-99); Non-African American GFR(CKD) >90 (>60 ml/min/1.73 sqM); Sodium 132 mmol/L (137-145)
[2021-05-16 15:47] LABS: Potassium 4.7 mmol/L (3.5-5.1)
[2021-05-16] MEDS ORDERED: CASIRIVIMAB (REGN10933) (EUA) 600 MG, IMDEVIMAB (REGN10987) (EUA) 600 MG in SODIUM CHLO... IVPB ONE (16:30)
[2021-05-16] MEDS ORDERED: SODIUM CHLORIDE 0.9% 50 ML IVPB ONE (16:30)
== END 2021-05-16 16:51 | disposition home or self-care (01) ==
LOC: EC 12:42
DX: U07.1 COVID-19 (principal); E11.9 Type 2 diabetes mellitus without complications; Z87.891 Personal history of nicotine dependence; Z88.0 Allergy status to penicillin
CPT/HCPCS: 99284 ×2; 96374 ×2; 96361 ×2; 36415; 80048; 85025; J1885

== ENCOUNTER 2021-08-28 19:36 | Observation (INO) | payer OTHER ==
[2021-08-28] MEDS ORDERED: SODIUM CHLORIDE 0.9% 500 ML 500 ML IV STA (20:57)
[2021-08-28] MEDS ORDERED: MORPHINE SULFATE 4 MG/ML SYRINGE IVP STA (20:57)
[2021-08-28] MEDS ORDERED: ONDANSETRON 4 MG/2 ML VIAL IVP STA (20:58)
--- NOTE | 2021-08-28 21:08 | ED ---
General Adult HPI - General Chief complaint: Shortness of Breath Stated complaint: SOB Time Seen by Provider: 08/28/21 20:25 Source: patient Mode of arrival: ambulatory Limitations: no limitations - History of Present Illness Initial comments: 51 year-old male patient presents to the emergency department for evaluation of shortness of breath and chest pain that has been going on for the last couple of months. States that he was diagnosed with COVID 2 months ago. He was more recently diagnosed with pulmonary embolism at [facility]. He was discharged from there two weeks ago. States he was admitted to their facility 5 times since his COVID diagnosis. Patient states he did start coughing today. Denies any hemoptysis or sputum production. States his chest pain is constant. Worse when he takes a deep breath. He reports abdominal pain as well. States he did have one episode of vomiting today. Denies hematochezia or melena, [place] es hematemesis. He denies any fever or chills. He does take his blood thinners as directed. He is unsure what the name of his medication is. Patient denies any recent rash, abdominal pain, diarrhea, constipation, back pain, numbness, tingling, dizziness, weakness, hematuria, dysuria, urinary urgency, urinary frequency, headache, visual changes, or any other complaints. - Related Data Home Medications Medication Instructions Recorded Confirmed Apixaban [Eliquis] 5 mg PO BID 08/28/21 08/28/21 Ascorbic Acid [Vitamin C] 500 mg PO DAILY 08/28/21 08/28/21 Furosemide [Lasix] 40 mg PO DAILY 08/28/21 08/28/21 Metoprolol Succinate (ER) [Toprol 25 mg PO DAILY 08/28/21 08/28/21 Xl] lisinopriL [Zestril] 5 mg PO DAILY 08/28/21 08/28/21 Allergies Allergy/AdvReac Type Severity Reaction Status Date / Time Penicillins Allergy Rash/Hives Verified 08/28/21 22:34 Review of Systems ROS Statement: Those systems with pertinent positive or pertinent negative responses have been documented in the HPI. ROS Other: All systems not noted in ROS Statement are negative. Past Medical History Past Medical History: Diabetes Mellitus, Pulmonary Embolus (PE) Additional Past Medical History / Comment(s): back pain, diabetic but on no meds, covid History of Any Multi-Drug Resistant Organisms: MRSA Date of last positivie culture/infection: 2014 MDRO Source:: stomach Past Surgical History: Appendectomy Additional Past Surgical History / Comment(s): Ear surgery, skull sx Past Psychological History: Unable to Obtain Smoking Status: Former smoker Past Alcohol Use History: None Reported Past Drug Use History: None Reported General Exam Limitations: no limitations General appearance: alert, in no apparent distress, other (This is a well- developed, well-nourished adult male in no acute distress.) Respiratory exam: Present: normal lung sounds bilaterally, other (Tachypnea). Absent: respiratory distress, wheezes, rales, rhonchi, stridor Cardiovascular Exam: Present: normal rhythm, tachycardia, normal heart sounds. Absent: systolic murmur, diastolic murmur, rubs, gallop, clicks GI/Abdominal exam: Present: soft, normal bowel sounds. Absent: distended, tenderness, guarding, rebound, rigid Neurological exam: Present: alert, oriented X3, CN II-XII intact Psychiatric exam: Present: normal affect, normal mood Skin exam: Present: warm, dry, intact, normal color. Absent: rash Course Vital Signs 08/28/21 08/28/21 19:39 21:14 Temperature 98.0 F Pulse Rate 119 H Respiratory 26 H 20 Rate Blood Pressure 140/86 O2 Sat by Pulse 95 Oximetry Medical Decision Making - Medical Decision Making 51-year-old male patient who had COVID-18 May, history of CHF with most recent ejection fraction 15-20%, diagnosed with pulmonary embolism 07/28/2021, presents to the emergency department today for evaluation of worsening chest pain and shortness of breath. Patient states for the last few days he becomes significantly short of breath with activity. States chest pain comes in intermittently. Labs reviewed and did reveal troponin 0.017. Chest x-ray shows heart failure. EKG showed sinus tachycardia. Reports reviewed from [facility], placed on chart. He'll be admitted to the hospital for further evaluation by cardiology. Continue his Eliquis. Patient is agreeable this plan. My attending is Dr. Milian. - Lab Data Result diagrams: 08/28/21 21:29 08/28/21 21:29 Lab Results 01/29/22 01/29/22 01/29/22 Range/Units 21:29 21:29 21:29 WBC 9.1 (3.8-10.6) k/uL RBC 4.24 L (4.30-5.90) m/uL Hgb 11.8 L (13.0-17.5) gm/dL Hct 37.0 L (39.0-53.0) % MCV 87.2 (80.0-100.0) fL MCH 27.8 (25.0-35.0) pg MCHC 31.8 (31.0-37.0) g/dL RDW 16.7 H (11.5-15.5) % Plt Count 262 (150-450) k/uL MPV 7.5 Neutrophils % 80 % Lymphocytes % 12 % Monocytes % 5 % Eosinophils % 2 % Basophils % 0 % Neutrophils # 7.3 (1.3-7.7) k/uL Lymphocytes # 1.1 (1.0-4.8) k/uL Monocytes # 0.4 (0-1.0) k/uL Eosinophils # 0.2 (0-0.7) k/uL Basophils # 0.0 (0-0.2) k/uL Hypochromasia Moderate Anisocytosis Slight PT 10.7 (9.0-12.0) sec INR 1.0 (<1.2) APTT 24.3 (22.0-30.0) sec Sodium 139 (137-145) mmol/L Potassium 4.3 (3.5-5.1) mmol/L Chloride 110 H (98-107) mmol/L Carbon Dioxide 23 (22-30) mmol/L Anion Gap 6 mmol/L BUN 18 (9-20) mg/dL Creatinine 0.79 (0.66-1.25) mg/dL Est GFR (CKD-EPI)AfAm >90 (>60 ml/min/1.73 sqM) Est GFR (CKD-EPI)NonAf >90 (>60 ml/min/1.73 sqM) Glucose 126 H (74-99) mg/dL Calcium 9.2 (8.4-10.2) mg/dL Magnesium 1.8 (1.6-2.3) mg/dL Total Bilirubin 1.1 (0.2-1.3) mg/dL AST 30 (17-59) U/L ALT 28 (4-49) U/L Alkaline Phosphatase 113 (38-126) U/L Troponin I (0.000-0.034) ng/mL Total Protein 7.1 (6.3-8.2) g/dL Albumin 3.7 (3.5-5.0) g/dL Lipase 79 (23-300) U/L 08/28/21 Range/Units 21:29 WBC (3.8-10.6) k/uL RBC (4.30-5.90) m/uL Hgb (13.0-17.5) gm/dL Hct (39.0-53.0) % MCV (80.0-100.0) fL MCH (25.0-35.0) pg MCHC (31.0-37.0) g/dL RDW (11.5-15.5) % Plt Count (150-450) k/uL MPV Neutrophils % % Lymphocytes % % Monocytes % % Eosinophils % % Basophils % % Neutrophils # (1.3-7.7) k/uL Lymphocytes # (1.0-4.8) k/uL Monocytes # (0-1.0) k/uL Eosinophils # (0-0.7) k/uL Basophils # (0-0.2) k/uL Hypochromasia Anisocytosis PT (9.0-12.0) sec INR (<1.2) APTT (22.0-30.0) sec Sodium (137-145) mmol/L Potassium (3.5-5.1) mmol/L Chloride (98-107) mmol/L Carbon Dioxide (22-30) mmol/L Anion Gap mmol/L BUN (9-20) mg/dL Creatinine (0.66-1.25) mg/dL Est GFR (CKD-EPI)AfAm (>60 ml/min/1.73 sqM) Est GFR (CKD-EPI)NonAf (>60 ml/min/1.73 sqM) Glucose (74-99) mg/dL Calcium (8.4-10.2) mg/dL Magnesium (1.6-2.3) mg/dL Total Bilirubin (0.2-1.3) mg/dL AST (17-59) U/L ALT (4-49) U/L Alkaline Phosphatase (38-126) U/L Troponin I 0.017 (0.000-0.034) ng/mL Total Protein (6.3-8.2) g/dL Albumin (3.5-5.0) g/dL Lipase (23-300) U/L - Radiology Data Radiology results: report reviewed, image reviewed 2 views of the chest are obtained. Report is reviewed in its entirety. Impression by Dr. Sarmiento shows pulmonary interstitial edema that could be acute heart failure. Disposition Clinical Impression: Chest pain, Shortness of breath, Heart failure Disposition: ADMITTED IP TO THIS [facility] Condition: Serious Referrals: None,Stated [Primary Care Provider] - 1-2 days Decision to Admit Reason: Admit from EC Decision Date: 08/28/21 Decision Time: 22:46
[2021-08-28 21:37] LABS: Anisocytosis Slight; Basophils % (A) 0 %; Eosinophils # (A) 0.2 k/uL (0-0.7); Eosinophils % (A) 2 %; HGB 11.8 gm/dL (13.0-17.5); Hypochromasia Moderate; Lymphocytes # (A) 1.1 k/uL (1.0-4.8); Lymphocytes % (A) 12 %; MCH 27.8 pg (25.0-35.0); MCHC 31.8 g/dL (31.0-37.0); MCV 87.2 fL (80.0-100.0); Mean Platelet Volume 7.5; Monocytes # (A) 0.4 k/uL (0-1.0); Monocytes % (A) 5 %; Neutrophils # (A) 7.3 k/uL (1.3-7.7); Neutrophils % (A) 80 %; Platelet Count 262 k/uL (150-450); RBC 4.24 m/uL (4.30-5.90); RDW 16.7 % (11.5-15.5); WBC 9.1 k/uL (3.8-10.6)
[2021-08-28 21:48] LABS: Partial Thromboplastin Time 24.3 sec (22.0-30.0); Prothrombin Time 10.7 sec (9.0-12.0)
[2021-08-28 21:52] LABS: ALT 28 U/L (4-49); AST 30 U/L (17-59); African American GFR (CKD) >90 (>60 ml/min/1.73 sqM); Albumin 3.7 g/dL (3.5-5.0); Alkaline Phosphatase 113 U/L (38-126); Anion Gap 6 mmol/L; Blood Urea Nitrogen 18 mg/dL (9-20); Calcium 9.2 mg/dL (8.4-10.2); Carbon Dioxide 23 mmol/L (22-30); Chloride 110 mmol/L (98-107); Glucose 126 mg/dL (74-99); Lipase 79 U/L (23-300); Magnesium 1.8 mg/dL (1.6-2.3); Non-African American GFR(CKD) >90 (>60 ml/min/1.73 sqM); Potassium 4.3 mmol/L (3.5-5.1); Sodium 139 mmol/L (137-145); Total Bilirubin 1.1 mg/dL (0.2-1.3); Total Protein 7.1 g/dL (6.3-8.2)
--- NOTE | 2021-08-28 22:03 | XR ---
EXAMINATION TYPE: XR chest 2V DATE OF EXAM: 08/28/2021 COMPARISON: NONE HISTORY: Short of breath. Pain. TECHNIQUE: 2 views FINDINGS: Heart is enlarged. There is some pulmonary interstitial edema. There are chest leads. There is no definite pleural effusion. Bony thorax is intact. IMPRESSION: There is pulmonary interstitial edema that could be acute heart failure.
[2021-08-28] MEDS ORDERED: ONDANSETRON 4 MG/2 ML VIAL IVP PRN (22:41)
[2021-08-28] MEDS ORDERED: NALOXONE 0.4 MG/ML 1 ML VIAL IV PRN (22:41)
--- NOTE | 2021-08-28 23:37 | CT ---
EXAMINATION TYPE: CT chest angio for PE DATE OF EXAM: 08/28/2021 COMPARISON: None HISTORY: recent pe, SOB, chest pain CT DLP: 379.9 mGycm Automated exposure control for dose reduction was used. CONTRAST: Performed with IV Contrast, patient injected with 100 mL of Isovue 370. There are Three-D postprocessed images. There are mild bilateral pleural effusions. Heart appears enlarged.. There is no pericardial effusion . There is no mediastinal adenopathy. There are no hilar masses. There is normal contrast opacificati on of the pulmonary arteries. There are no filling defects. Thoracic aorta is intact. There is mild increased interstitial pulmonary density. Thoracic spine is intact. There is no compression fracture. IMPRESSION: No evidence of pulmonary embolism. Mild bilateral pleural effusions. Cardiomegaly. Mild heart failure is possible.
[2021-08-29] MEDS ORDERED: ASPIRIN 325 MG TAB PO STA (02:33)
--- NOTE | 2021-08-29 02:34 | P.HPIM ---
History of Present Illness H&P Date: 08/29/21 The patient is a 51-year-old male with a PMH of substance abuse and type II DM who presented to the emergency room with complaints of intermittent chest discomfort and shortness of breath. The patient reports that he was diagnosed with COVID-19 2 months ago and was seen at [facility] as well as [facility] several times following his diagnosis. He reports being diagnosed with multiple pulmonary embolisms as well as CHF. He notes that since his discharge from the hospital, he continues to have 6 severely diminished exercise tolerance as well as occasional substernal chest discomfort brought on with exertion. He reports that the chest pain is often pleuritic, lasting for a few seconds to a few minutes of time. He denied orthopnea, PND, fever, chills, cough, nausea, vomiting, abdominal pain, diarrhea. He reports ongoing substance use with last using methamphetamine 2 days prior to presentation. He reports compliance with his medications at home. Laboratory evaluation in the emergency room was remarkable for troponin 0.017, proBNP 4210. Chest CTA was negative for PE with findings consistent for mild CHF. EKG revealed sinus a cardiac 1 14 bpm with T-wave flattening noted in the inferior leads. Review of systems: Pertinent positives and negatives as discussed in HPI, a complete review of systems was performed and all other systems are negative. Physical examination: General: non toxic, no distress, appears at stated age, normal weight Derm: no unusual rashes/lesions no unusual ecchymoses, warm, dry Head: atraumatic, normocephalic, symmetric Eyes: EOMI, no lid lag, anicteric sclera, pupils equal round reactive to light ENT: Nose and ears atraumatic, no thrush, no pharyngeal erythema Neck: No thyromegaly, no cervical lymphadenopathy, trachea midline, supple Mouth: no lip lesion, mucus membranes moist Cardiovascular: S1S2 reg, no murmur, positive posterior tibial pulse bilateral, no edema, capillary refill less than 2 seconds Lungs: CTA bilateral, no rhonchi, no rales , no accessory muscle use Abdominal: soft, nontender to palpation, no guarding, no appreciable organomegaly, normal bowel sounds Ext: no gross muscle atrophy, muscle strength 5 out of 5 in all 4 extremities grossly, no contractures, Neuro: CN II-XI grossly intact, light touch intact all 4 extremities, finger to nose within normal limits, Psych: Alert, oriented, appropriate affect Assessment/plan Unstable angina -Cardiac monitoring -Trend troponin -Cardiology consult -Continue aspirin -Patient is on Eliquis at home -Obtain echocardiogram Substance abuse -Advised on importance of cessation Type II DM -Insulin sliding scale and blood glucose monitoring DVT prophylaxis -Eliquis The patient is admitted with an anticipated less than 2 midnight stay for evaluation of unstable angina CODE STATUS: Full Code Discussed with: Patient Anticipated discharge date: in am Anticipated discharge place: Home Past Medical History Past Medical History: Diabetes Mellitus, Pulmonary Embolus (PE) Additional Past Medical History / Comment(s): back pain, diabetic but on no meds, covid History of Any Multi-Drug Resistant Organisms: MRSA Date of last positivie culture/infection: 2014 MDRO Source:: stomach Past Surgical History: Appendectomy Additional Past Surgical History / Comment(s): Ear surgery, skull sx Past Psychological History: Unable to Obtain Smoking Status: Former smoker Past Alcohol Use History: None Reported Past Drug Use History: None Reported Medications and Allergies Home Medications Medication Instructions Recorded Confirmed Type Apixaban [Eliquis] 5 mg PO BID 08/28/21 08/28/21 History Ascorbic Acid [Vitamin C] 500 mg PO DAILY 08/28/21 08/28/21 History Furosemide [Lasix] 40 mg PO DAILY 08/28/21 08/28/21 History Metoprolol Succinate (ER) [Toprol 25 mg PO DAILY 08/28/21 08/28/21 History Xl] lisinopriL [Zestril] 5 mg PO DAILY 08/28/21 08/28/21 History Allergies Allergy/AdvReac Type Severity Reaction Status Date / Time Penicillins Allergy Rash/Hives Verified 08/28/21 22:34 Physical Exam Vitals: Vital Signs Temp Pulse Resp BP Pulse Ox 08/28/21 22:50 106 H 18 124/93 93 L 08/28/21 21:14 20 08/28/21 19:39 98.0 F 119 H 26 H 140/86 95 Intake and Output 08/28/21 08/28/21 08/29/21 14:59 22:59 06:59 Other: Weight 77.111 kg 77.111 kg Results CBC & Chem 7: 08/28/21 21:29 08/28/21 21:29 Labs: Abnormal Lab Results - Last 24 Hours (Table) 08/28/21 08/28/21 Range/Units 21:29 21:29 RBC 4.24 L (4.30-5.90) m/uL Hgb 11.8 L (13.0-17.5) gm/dL Hct 37.0 L (39.0-53.0) % RDW 16.7 H (11.5-15.5) % Chloride 110 H (98-107) mmol/L Glucose 126 H (74-99) mg/dL Thrombosis Risk Factor Assmnt - Choose All That Apply Each Factor Represents 1 point: Age 41-60 years, Obesity (BMI >25) Thrombosis Risk Factor Assessment Total Risk Factor Score: 2 Thrombosis Risk Factor Assessment Level: Low Risk
[2021-08-29] MEDS: MORPHINE SULFATE 4 MG/ML SYRINGE IV PRN ×3 (03:01→20:32)
[2021-08-29] MEDS: INSULIN ASPART (NovoLOG) 100 UNIT/ML VIAL SQ SCH ×4 (07:07→20:24)
[2021-08-29 07:08] LABS: Glucose,Whole Blood 105 mg/dL (75-99)
[2021-08-29] MEDS: ASPIRIN 81 MG PO SCH (07:12)
[2021-08-29] MEDS ORDERED: IPRATROPIUM-ALBUTEROL 3 ML NEB INHALATION PRN (08:07)
[2021-08-29] MEDS: METOPROLOL SUCCINATE (ER) 25 MG TAB.ER.24H PO SCH (08:19)
[2021-08-29] MEDS: APIXABAN 5 MG TAB PO SCH ×2 (08:19→20:32)
[2021-08-29] MEDS: lisinopriL 5 MG TAB PO SCH (08:19)
[2021-08-29] MEDS ORDERED: FUROSEMIDE 40 MG TAB PO SCH (09:00)
[2021-08-29] MEDS ORDERED: FUROSEMIDE 10 MG/ML 4 ML VIAL IV SCH (09:00)
[2021-08-29 11:42] LABS: African American GFR (CKD) 119.9 (60.0-200.0); Blood Urea Nitrogen 16.4 mg/dL (9.0-27.0); Calcium 9.2 mg/dL (8.7-10.3); Carbon Dioxide 20.8 mmol/L (20.0-27.5); Chloride 106 mmol/L (96-109); Glucose 104 mg/dL (70-110); Non-African American GFR(CKD) 103.4 (60.0-200.0); Potassium 4.6 mmol/L (3.5-5.5); Sodium 139 mmol/L (135-145)
[2021-08-29 11:51] LABS: Glucose,Whole Blood 206 mg/dL (75-99)
--- NOTE | 2021-08-29 12:00 | P.CRDCN ---
History of Present Illness Consult date: 08/29/21 Chief complaint: Shortness of breath History of present illness: The patient is a pleasant 51-year-old gentleman with a recent diagnosis of cardi omyopathy with an EF between 15-20% as well as history of pulmonary embolism currently on oral anticoagulation as well as multiple comorbid conditions presented to the hospital complaining of increasing shortness of breath. The patient was admitted recently to [facility] with shortness of breath and he was diagnosed was PE. He underwent an echo which we have a copy of it and that showed an EF between 15-20%. He was discharged in stable medical condition. He presented to the hospital because for the last week he has been experiencing progressive exertional dyspnea and orthopnea. No lower extremities edema. No anginal chest pain or chest discomfort and no dizziness or lightheade dness or any feeling of heart racing or fluttering or presyncope or syncope. On examination he does have crackles in the left lung base. No lower extent is edema noted. No significant JVD noted. The patient was started on Lasix IV and he stated that he is feeling overall better. He stated that he has been compliant with his medication including oral diuretics as an outpatient and he stated that he has been not adding salt to his diet but he has been eating everything. No further investigation regarding the cardiomyopathy and he does not recall having any heart catheterization to rule out severe underlying coronary artery disease. We will further investigate that down the line. During this admission he underwent cardiac enzymes and that came in to be unremarkable. The chest x-ray showed evidence of pulmonary edema. NT proBNP came in to be around 5000. Past Medical History Past Medical History: Diabetes Mellitus, Pulmonary Embolus (PE) Additional Past Medical History / Comment(s): back pain, diabetic but on no m eds, covid History of Any Multi-Drug Resistant Organisms: MRSA Date of last positivie culture/infection: 2014 MDRO Source:: stomach Past Surgical History: Appendectomy Additional Past Surgical History / Comment(s): Ear surgery, skull sx Past Psychological History: Unable to Obtain Smoking Status: Former smoker Past Alcohol Use History: None Reported Past Drug Use History: None Reported Medications and Allergies Home Medications Medication Instructions Recorded Confirmed Type Apixaban [Eliquis] 5 mg PO BID 08/28/21 08/28/21 History Ascorbic Acid [Vitamin C] 500 mg PO DAILY 08/28/21 08/28/21 History Furosemide [Lasix] 40 mg PO DAILY 08/28/21 08/28/21 History Metoprolol Succinate (ER) [Toprol 25 mg PO DAILY 08/28/21 08/28/21 History Xl] lisinopriL [Zestril] 5 mg PO DAILY 08/28/21 08/28/21 History Allergies Allergy/AdvReac Type Severity Reaction Status Date / Time Penicillins Allergy Rash/Hives Verified 08/28/21 22:34 Physical Exam Vitals: Vital Signs Temp Pulse Pulse Resp BP BP Pulse Ox 08/29/21 07:00 98.1 F 76 18 119/81 08/29/21 00:08 97.9 F 107 H 22 118/82 99 08/28/21 22:50 106 H 18 124/93 93 L 08/28/21 21:14 20 08/28/21 19:39 98.0 F 119 H 26 H 140/86 95 Intake and Output 08/28/21 08/29/21 08/29/21 22:59 06:59 14:59 Other: # Voids 1 Weight 77.111 kg 77.111 kg - Constitutional General appearance: no acute distress - Respiratory Respiratory: left: rales - Cardiovascular Rhythm: regular Heart sounds: normal: S1, S2 Results 08/28/21 21:29 08/29/21 07:42 Cardiac Enzymes 08/28/21 08/28/21 08/29/21 Range/Units 21:29 21:29 00:35 AST 30 (17-59) U/L Troponin I 0.017 0.017 (0.000-0.034) ng/mL 08/29/21 Range/Units 03:48 AST (17-59) U/L Troponin I 0.017 (0.000-0.034) ng/mL Coagulation 08/28/21 Range/Units 21:29 PT 10.7 (9.0-12.0) sec APTT 24.3 (22.0-30.0) sec CBC 08/28/21 Range/Units 21:29 WBC 9.1 (3.8-10.6) k/uL RBC 4.24 L (4.30-5.90) m/uL Hgb 11.8 L (13.0-17.5) gm/dL Hct 37.0 L (39.0-53.0) % Plt Count 262 (150-450) k/uL Comprehensive Metabolic Panel 08/28/21 08/29/21 Range/Units 21:29 07:42 Sodium 139 139 (137-145) mmol/L Potassium 4.3 4.6 (3.5-5.1) mmol/L Chloride 110 H 106 (98-107) mmol/L Carbon Dioxide 23 20.8 (22-30) mmol/L BUN 18 16.4 (9-20) mg/dL Creatinine 0.79 0.8 (0.66-1.25) mg/dL Glucose 126 H 104 (74-99) mg/dL Calcium 9.2 9.2 (8.4-10.2) mg/dL AST 30 (17-59) U/L ALT 28 (4-49) U/L Alkaline Phosphatase 113 (38-126) U/L Total Protein 7.1 (6.3-8.2) g/dL Albumin 3.7 (3.5-5.0) g/dL Current Medications Generic Name Dose Route Start Last Admin Trade Name Freq PRN Reason Stop Dose Admin Albuterol/Ipratropium 3 ml 08/29/21 08:07 Ipratropium-Albuterol 3 Ml Neb INHALATION RT-QID PRN Shortness Of Breath Or Wheezing Apixaban 5 mg 08/29/21 09:00 08/29/21 08:19 Apixaban 5 Mg Tab PO 5 mg BID KOURTNEY Administration Protocol Aspirin 81 mg 08/29/21 09:00 08/29/21 07:12 Aspirin 81 Mg PO 81 mg DAILY KOURTNEY Administration Furosemide 40 mg 08/29/21 21:00 Furosemide 10 Mg/Ml 4 Ml Vial IV Q12HR [facility] Insulin Aspart 0 unit 08/29/21 07:30 08/29/21 07:07 Insulin Aspart (Novolog) 100 Unit/Ml Vial SQ Not Given ACHS [facility] Protocol Lisinopril 5 mg 08/29/21 09:00 08/29/21 08:19 Lisinopril 5 Mg Tab PO 5 mg DAILY KOURTNEY Administration Metoprolol Succinate 25 mg 08/29/21 09:00 08/29/21 08:19 Metoprolol Succinate (Er) 25 Mg Tab.Er.24h PO 25 mg DAILY KOURTNEY Administration Morphine Sulfate 4 mg 08/28/21 22:41 08/29/21 03:01 Morphine Sulfate 4 Mg/Ml Syringe IV 4 mg Q4HR PRN Administration Severe Pain Naloxone HCl 0.2 mg 08/28/21 22:41 Naloxone 0.4 Mg/Ml 1 Ml Vial IV Q2M PRN Opioid Reversal Ondansetron HCl 4 mg 08/28/21 22:41 Ondansetron 4 Mg/2 Ml Vial IVP Q8HR PRN Nausea And Vomiting Intake and Output 08/28/21 08/29/21 08/29/21 22:59 06:59 14:59 Other: # Voids 1 Weight 77.111 kg 77.111 kg 08/28/21 21:29 08/29/21 07:42 Assessment and Plan Assessment: Assessment #1 heart failure exacerbation secondary to heart failure with reduced ejection fraction. #2 severe cardiomyopathy was EF between 15-20% on recent echocardiogram. That has to be further investigated and assess if is ischemic or nonischemic #3 non-compliance with diet #4 multiple comorbid conditions Plan #1 increase the dose of Lasix IV to 40 mg twice a day #2 add Aldactone to the current medical regimen #3 monitor the kidney function and electrolytes #4 rule out severe underlying coronary artery disease by heart catheterization probably as an outpatient #5 continue up titrating the beta keli as well as CINTHIA inhibitor as an outpatient #6 follow-up with the patient
[2021-08-29 12:24] LABS: Basophils # (A) 0.06 X 10*3/uL (0.00-0.10); Basophils % (A) 0.5 %; Eosinophils # (A) 0.33 X 10*3/uL (0.04-0.35); Eosinophils % (A) 2.8 %; HCT 37.9 % (39.6-50.0); HGB 11.3 g/dL (13.0-17.0); Lymphocytes # (A) 1.51 X 10*3/uL (0.90-5.00); MCH 26.8 pg (27.0-32.0); MCHC 29.8 g/dL (32.0-37.0); MCV 89.8 fL (80.0-97.0); Monocytes # (A) 1.15 X 10*3/uL (0.20-1.00); Monocytes % (A) 9.9 %; Neutrophils # (A) 8.46 X 10*3/uL (1.80-7.70); Neutrophils % (A) 73.2 %; Platelet Count 266 X 10*3/uL (140-440); RBC 4.22 X 10*6/uL (4.40-5.60); RDW 16.7 % (11.5-14.5); WBC 11.58 X 10*3/uL (4.50-10.00)
[2021-08-29 17:02] LABS: Glucose,Whole Blood 79 mg/dL (75-99)
[2021-08-29 20:17] LABS: Glucose,Whole Blood 114 mg/dL (75-99)
[2021-08-29] MEDS: FUROSEMIDE 10 MG/ML 4 ML VIAL IV SCH (20:32)
[2021-08-30] MEDS: MORPHINE SULFATE 4 MG/ML SYRINGE IV PRN ×3 (03:44→13:04)
[2021-08-30 07:09] LABS: Glucose,Whole Blood 81 mg/dL (75-99)
[2021-08-30 08:34] LABS: African American GFR (CKD) 79 (>60 ml/min/1.73 sqM); Anion Gap 16 mmol/L; Blood Urea Nitrogen 23 mg/dL (9-20); Calcium 9.7 mg/dL (8.4-10.2); Carbon Dioxide 19 mmol/L (22-30); Chloride 103 mmol/L (98-107); Glucose 72 mg/dL (74-99); Non-African American GFR(CKD) 68 (>60 ml/min/1.73 sqM); Potassium 5.8 mmol/L (3.5-5.1); Sodium 138 mmol/L (137-145)
[2021-08-30] MEDS: INSULIN ASPART (NovoLOG) 100 UNIT/ML VIAL SQ SCH ×4 (08:42→22:04)
[2021-08-30] MEDS: FUROSEMIDE 10 MG/ML 4 ML VIAL IV SCH (08:44)
[2021-08-30] MEDS: METOPROLOL SUCCINATE (ER) 25 MG TAB.ER.24H PO SCH (08:44)
[2021-08-30] MEDS: SPIRONOLACTONE 25 MG TAB PO SCH (08:44)
[2021-08-30] MEDS: APIXABAN 5 MG TAB PO SCH ×2 (08:44→20:24)
[2021-08-30] MEDS: lisinopriL 5 MG TAB PO SCH (08:44)
[2021-08-30] MEDS: ASPIRIN 81 MG PO SCH (08:44)
[2021-08-30 08:52] LABS: Anisocytosis Slight; Basophils # (A) 0.1 k/uL (0-0.2); Basophils % (A) 0 %; Eosinophils % (A) 0 %; HCT 45.4 % (39.0-53.0); HGB 14.5 gm/dL (13.0-17.5); Hypochromasia Marked; Lymphocytes # (A) 1.6 k/uL (1.0-4.8); Lymphocytes % (A) 9 %; MCH 28.4 pg (25.0-35.0); MCHC 31.9 g/dL (31.0-37.0); MCV 89.1 fL (80.0-100.0); Mean Platelet Volume 9.1; Monocytes # (A) 1.8 k/uL (0-1.0); Monocytes % (A) 11 %; Neutrophils # (A) 13.2 k/uL (1.3-7.7); Neutrophils % (A) 78 %; Platelet Count 298 k/uL (150-450); RBC 5.09 m/uL (4.30-5.90); RDW 16.7 % (11.5-15.5); WBC 16.9 k/uL (3.8-10.6)
--- NOTE | 2021-08-30 11:53 | P.PN ---
Subjective The patient is a 51-year-old gentleman with a past medical history of methamphetamine abuse, heroin abuse, pulmonary embolism on Eliquis, Covid-19 ho spitalized at [facility] discharged on 08/03/21, COPD, recent diagnosis of cardiomyopathy with EF 15-20%. Patient is homeless. 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 We are consulted for congestive heart failure and chest pain. Presented to the hospital complaining of increasing shortness of breath. The patient was admitted recently in 07/28/2021-August 03 2021 to [facility] with shortness of breath and he was diagnosed was PE. CTA on 07/28/2021 revealed 3 small segmental branch emboli identified in the right lung, cardiomegaly, with small right greater than left pleural effusions, groundglass changes suspect a combination of Covid pneumonia and interstitial pulmonary edema. He underwent an echo on 07/29/21 that showed an EF between 15-20%, severe hypokinesis of the left ventricle, trace to mild mitral regurgitation, mild tricuspid regurgitation, RVSP of 30 mmHg. He was treated with IV Diuretics, stabilized and discharged on PO Lasix 40mg daily, ELiquis, lisinopril 5 mg daily, metoprolol succinate 25 mg daily 08/30/21 Patient seen and examined at bedside, no acute distress. He is irritable/anxious this morning. He endorses generalized pain. He denies chest pain or shortness of breath. He denies dyspnea, orthopnea. No lower extremity edema. Echo is pending. He states he has been urinating a lot. He is maintained on IV Lasix 40mg BID. Eliquis 5 mg twice a day, aspirin 81 mg daily, lisinopril 5 mg daily, metoprolol succinate 25 mg daily, aspirin lactone 25 mg daily Labs, sodium 138, potassium 5.8, BUN 23, serum creatinine increased 1.23. GENERAL: Well-appearing, well-nourished and in no acute distress. NECK: Supple without JVD or thyromegaly. LUNGS: Breath sounds clear to auscultation bilaterally. Respiration equal and unlabored. No wheezes, rales or rhonchi. HEART: Regular rate and rhythm without murmurs, rubs or gallops. S1 and S2 heard. EXTREMITIES: Normal range of motion, no edema. No clubbing or cyanosis. Peripheral pulses intact. ASSESSMENT Acute heart failure with reduced ejection fraction Cardiomyopathy, unknown if ischemic vs non-ischemic at this [facility] History of pulmonary embolism on Eliquis History of methamphetamine abuse History of heroin abuse Recent Covid-19 Pneumonia PLAN Switch to PO Lasix 40mg BID Obtain 2D echocardiogram Monitor renal function and electrolytes Continue to maximize heart failure medication regimen Continue aspirin, Eliquis, Lisinopril, metoprolol succinate and spironolactone Further recommendations based on clinical course Nurse Practitioner note has been reviewed, I agree with a documented findings and plan of care. Patient was seen and examined. Objective - Vital Signs Vital signs: Vital Signs Temp 98 F 08/30/21 07:00 Pulse 102 H 08/30/21 08:00 Resp 20 08/30/21 08:00 BP 113/85 08/30/21 07:00 Pulse Ox 92 L 08/30/21 07:00 Intake & Output 08/29/21 08/30/21 08/30/21 18:59 06:59 18:59 Intake Total 480 120 Balance 480 120 Intake: Oral 480 120 Other: Voiding Method Toilet Toilet Urinal Urinal # Voids 2 3 - Labs CBC & Chem 7: 08/30/21 07:14 08/30/21 07:14 Labs: Abnormal Lab Results - Last 24 Hours (Table) 08/29/21 08/29/21 08/29/21 Range/Units 07:42 07:42 11:49 WBC 11.58 H (4.50-10.00) X 10*3/uL RBC 4.22 L (4.40-5.60) X 10*6/uL Hgb 11.3 L (13.0-17.0) g/dL Hct 37.9 L (39.6-50.0) % MCH 26.8 L (27.0-32.0) pg MCHC 29.8 L (32.0-37.0) g/dL RDW 16.7 H (11.5-14.5) % Absolute Nucleated RBC 0.02 H (0.00-0.00) X 10*3/uL Immature Gran # 0.07 H (0.00-0.04) X 10*3/uL Neutrophils # 8.46 H (1.80-7.70) X 10*3/uL Monocytes # 1.15 H (0.20-1.00) X 10*3/uL NRBC/100 WBC Diff 0.2 H (0.0-0.0) /100 WBCS Potassium (3.5-5.1) mmol/L Carbon Dioxide (22-30) mmol/L BUN (9-20) mg/dL BUN/Creatinine Ratio 20.50 H (12.00-20.00) Ratio Glucose (74-99) mg/dL POC Glucose (mg/dL) 206 H (75-99) mg/dL 08/29/21 08/30/21 08/30/21 Range/Units 20:14 07:14 07:14 WBC 16.9 H (4.50-10.00) X 10*3/uL RBC (4.40-5.60) X 10*6/uL Hgb (13.0-17.0) g/dL Hct (39.6-50.0) % MCH (27.0-32.0) pg MCHC (32.0-37.0) g/dL RDW 16.7 H (11.5-14.5) % Absolute Nucleated RBC (0.00-0.00) X 10*3/uL Immature Gran # (0.00-0.04) X 10*3/uL Neutrophils # 13.2 H (1.80-7.70) X 10*3/uL Monocytes # 1.8 H (0.20-1.00) X 10*3/uL NRBC/100 WBC Diff (0.0-0.0) /100 WBCS Potassium 5.8 H (3.5-5.1) mmol/L Carbon Dioxide 19 L (22-30) mmol/L BUN 23 H (9-20) mg/dL BUN/Creatinine Ratio (12.00-20.00) Ratio Glucose 72 L (74-99) mg/dL POC Glucose (mg/dL) 114 H (75-99) mg/dL
[2021-08-30 12:00] LABS: Glucose,Whole Blood 100 mg/dL (75-99)
--- NOTE | 2021-08-30 12:09 | ECHOF ---
Referral Reason:unstable angina MEASUREMENTS -------- HEIGHT: 172.7 cm WEIGHT: 77.1 kg BP: 106/61 RVIDd: 5.1 cm (< 3.3) IVSd: 1.2 cm (0.6 - 1.1) LVIDd: 5.7 cm (3.9 - 5.3) LVPWd: 1.5 cm (0.6 - 1.1) IVSs: 1.3 cm LVIDs: 5.7 cm LVPWs: 1.5 cm LAESV Index (A-L): 39.40 ml/m Ao Diam: 2.8 cm (2.0 - 3.7) AV Cusp: 1.8 cm (1.5 - 2.6) LA Diam: 4.5 cm (2.7 - 3.8) MV EXCURSION: 15.243 mm (> 18.000) MV EF SLOPE: 55 mm/s (70 - 150) EPSS: 2.3 cm RAP: 20.00 mmHg RVSP: 59.92 mmHg FINDINGS -------- This was a technically adequate study. The left ventricular size is normal. There is borderline concentric left ventricular hypertrophy. There is severe global hypokinesis of LV . Overall left ventricular systolic function is severely impaired with, an EF < 20%. The right ventricle is severely enlarged. LA is moderately dilated 34-39 ml/m2 The right atrial size is normal. Interatrial and interventricular septum intact. There is no evidence of aortic regurgitation. There is no evidence of aortic stenosis. [id number] mitral regurgitation is present. Moderate to severe tricuspid regurgitation present. There is moderate to severe pulmonary hypertens ion. The right ventricular systolic pressure, as measured by Doppler, is 59.92mmHg. Trace/mild (physiologic) pulmonic regurgitation. The aortic root size is normal. The inferior vena cava is dilated with no significant inspiratory collapse which is consistent estima myra right atrial pressure of >20 mmHg. There is a trivial pericardial effusion present. CONCLUSIONS -------- 1. The left ventricular size is normal. 2. There is borderline concentric left ventricular hypertrophy. 3. There is severe global hypokinesis of LV . 4. Overall left ventricular systolic function is severely impaired with, an EF < 20%. 5. The right ventricle is severely enlarged. 6. LA is moderately dilated 34-39 ml/m2 7. Ssuh-eu-facboakw mitral regurgitation is present. 8. Moderate to severe tricuspid regurgitation present. 9. There is moderate to severe pulmonary hypertension. 10. The right ventricular systolic pressure, as measured by Doppler, is 59.92mmHg. 11. Trace/mild (physiologic) pulmonic regurgitation. 12. The inferior vena cava is dilated with no significant inspiratory collapse which is consistent es timated right atrial pressure of >20 mmHg. 13. There is a trivial pericardial effusion present. MACHINE CLOTHING WORKER: Maria Teresa Patrick RDCS
--- NOTE | 2021-08-30 16:20 | P.PN ---
Subjective Progress Note Date: 08/30/21 Patient is a 51-year-old male with a past medical history of substance abuse and type 2 diabetes mellitus and newly discovered chronic systolic heart failure and multiple pulmonary embolisms. Patient presents to the ED with dyspnea and pleuritic chest pain. In the ED patient had a CTA chest was negative for PE however did show findings consistent with mild CHF. Patient was referred for admission for acute on chronic systolic heart failure. He was started on IV Lasix. He has not been transition to oral Lasix. Repeat echocardiogram showed EF less than 20%. Awaiting for further recommendations from cardiology regarding ischemic workup. Patient appears comfortable in his bed. He states that he has a good job but needs to be fixed up so that he can return to work. 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 I told patient with his weak heart he is likely always going to have shortness of breath and will not be able to do extremely able to work. Patient states that he still has some shortness of breath. He is currently satting well on room air. 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 - Moving all 4 extremities spontaneously Psych - Calm and cooperative - Labs CBC & Chem 7: 08/30/21 07:14 08/30/21 07:14 Labs: Abnormal Lab Results - Last 24 Hours (Table) 08/29/21 08/30/21 08/30/21 Range/Units 20:14 07:14 07:14 WBC 16.9 H (3.8-10.6) k/uL RDW 16.7 H (11.5-15.5) % Neutrophils # 13.2 H (1.3-7.7) k/uL Monocytes # 1.8 H (0-1.0) k/uL Potassium 5.8 H (3.5-5.1) mmol/L Carbon Dioxide 19 L (22-30) mmol/L BUN 23 H (9-20) mg/dL Glucose 72 L (74-99) mg/dL POC Glucose (mg/dL) 114 H (75-99) mg/dL 08/30/21 Range/Units 11:56 WBC (3.8-10.6) k/uL RDW (11.5-15.5) % Neutrophils # (1.3-7.7) k/uL Monocytes # (0-1.0) k/uL Potassium (3.5-5.1) mmol/L Carbon Dioxide (22-30) mmol/L BUN (9-20) mg/dL Glucose (74-99) mg/dL POC Glucose (mg/dL) 100 H (75-99) mg/dL Assessment and Plan Assessment: #Shortness of breath #Acute on chronic systolic heart failure -Patient has been transitioned to oral Lasix -Resume lisinopril, metoprolol, spironolactone, aspirin -I discussed with cardiology SYSTEMS SPECIALIST who said that she will speak with the attending regarding ischemic workup #Recent pulmonary embolism -Resume Alfredo -CTA chest on admission negative for pulmonary embolism #Type 2 diabetes mellitus? -Patient is not on any medications -Hemoglobin A1c 6.1 Anticipation discharge date: Tomorrow if cardiology has no plans for ischemic workup Anticipated discharge place: Patient currently is homeless and will return to his previous living situation. Patient states that he is not worried about his living condition
[2021-08-30 17:46] LABS: Glucose,Whole Blood 47 mg/dL (75-99)
[2021-08-30 17:52] LABS: Glucose,Whole Blood 40 mg/dL (75-99)
[2021-08-30 18:11] LABS: Glucose,Whole Blood 33 mg/dL (75-99)
[2021-08-30] MEDS ORDERED: DEXTROSE 50% SYRINGE 50 ML IVP ONE (18:13)
[2021-08-30 18:22] LABS: Glucose,Whole Blood 39 mg/dL (75-99)
[2021-08-30 18:35] LABS: Glucose,Whole Blood 119 mg/dL (75-99)
[2021-08-30] MEDS: FUROSEMIDE 40 MG TAB PO SCH (18:35)
[2021-08-30 21:02] LABS: Glucose,Whole Blood 96 mg/dL (75-99)
--- NOTE | 2021-08-30 21:26 | XR ---
EXAMINATION TYPE: XR abdomen 1V DATE OF EXAM: 08/30/2021 COMPARISON: 02/07/2016 HISTORY: Abdominal pain TECHNIQUE: 2 views FINDINGS: Bowel gas pattern is normal. There is no sign of intestinal obstruction or pneumoperitoneum . Fecal pattern is normal. Lung bases are clear. IMPRESSION: Nonacute abdomen. No change.
[2021-08-31 00:22] LABS: Glucose,Whole Blood 113 mg/dL (75-99)
[2021-08-31 01:04] VITALS: TEMP 98.3
[2021-08-31 02:07] LABS: Glucose,Whole Blood 104 mg/dL (75-99)
[2021-08-31] MEDS: MORPHINE SULFATE 4 MG/ML SYRINGE IV PRN (02:08)
[2021-08-31 07:23] LABS: Glucose,Whole Blood 85 mg/dL (75-99)
[2021-08-31] MEDS: INSULIN ASPART (NovoLOG) 100 UNIT/ML VIAL SQ SCH ×2 (07:48→13:03)
[2021-08-31 07:58] LABS: African American GFR (CKD) 49 (>60 ml/min/1.73 sqM); Anion Gap 12 mmol/L; Blood Urea Nitrogen 46 mg/dL (9-20); Calcium 8.7 mg/dL (8.4-10.2); Carbon Dioxide 22 mmol/L (22-30); Chloride 99 mmol/L (98-107); Glucose 89 mg/dL (74-99); Magnesium 1.9 mg/dL (1.6-2.3); Non-African American GFR(CKD) 42 (>60 ml/min/1.73 sqM); Potassium 5.1 mmol/L (3.5-5.1); Sodium 133 mmol/L (137-145)
[2021-08-31] MEDS ORDERED: HYDROcodone/APAP 5-325MG 1 EACH TAB PO PRN (08:14)
[2021-08-31] MEDS: APIXABAN 5 MG TAB PO SCH (08:30)
[2021-08-31] MEDS: ASPIRIN 81 MG PO SCH (08:30)
[2021-08-31] MEDS: SPIRONOLACTONE 25 MG TAB PO SCH (08:30)
[2021-08-31] MEDS: FUROSEMIDE 40 MG TAB PO SCH (08:31)
[2021-08-31] MEDS: METOPROLOL SUCCINATE (ER) 25 MG TAB.ER.24H PO SCH (08:31)
[2021-08-31 08:32] VITALS: BP 108/76
--- NOTE | 2021-08-31 09:26 | P.DS ---
Providers Date of admission: 08/28/21 22:24 Expected date of discharge: 08/31/21 Attending physician: Maryann Sosa MD Consults: 08/28/21 22:42 Consult Physician Routine Consulting Provider: [facility] Consult Reason/Comments: Chest pain Do you want consulting provider notified?: Yes Primary care physician: David Tovar MD Hospital Course: 51-year-old male with multiple medical problems noncompliant with the treatment admitted to the hospital with chest pain the patient has been evaluated by cardiology patient was found to have ejection fraction of around 15 patient is feeling okay was cleared from cardiology to go home the patient needs to follow-up with cardiology as an outpatient for further workup for the cardiomyopathy as an outpatient Constitutional: No acute distress, conversant, pleasant Eyes: Anicteric sclerae, moist conjunctiva, no lid-lag PERRLA ENMT: NC/AT Oropharynx clear, no erythema, exudates Neck: Supple, FROM, no masses, or JVD No carotid bruits No thyromegaly Lungs: Clear to auscultation Clear to percussion Normal respiratory effort, no accessory muscle use Cardiovascular: Heart regular in rate and rhythm, No murmurs, gallops, or rubs No peripheral edema Abdominal: Soft Nontender, no guarding, rebound or rigidity Abdomen moving with respiration Normoactive bowel sounds No hepatomegaly, No splenomegaly No palpable mass No abdominal wall hernia noted Skin: Normal temperature, tone, texture, turgor No induration No subcutaneous nodules No rash, lesions No ulcers Extremities: No digital cyanosis No clubbing Pedal pulses intact and symmetrical Radial pulses intact and symmetrical Normal gait and station No calf tenderness Psychiatric:Alert and oriented to person, place and time Appropriate affect Intact judgement Neuro: Muscles Strength 5/5 in all 4 extremities Sensation to light touch grossly present throughout Cranial nerves II-XII grossly intact No focal sensory deficits Assessment and plan acute on chronic systolic congestive heart failure continue Lasix and lisinopril and beta blockers patient is not compliant with treatment Patient needs follow-up with primary care physician Follow-up with cardiology Patient Condition at Discharge: Serious Plan - Discharge Summary New Discharge Prescriptions: New Aspirin 81 mg PO DAILY 30 Days #30 Furosemide [Lasix] 40 mg PO BID@0900,1600 30 Days #60 tab Spironolactone [Aldactone] 25 mg PO DAILY 30 Days #30 tab Continue Ascorbic Acid [Vitamin C] 500 mg PO DAILY lisinopriL [Zestril] 5 mg PO DAILY Metoprolol Succinate (ER) [Toprol XL] 25 mg PO DAILY Apixaban [Eliquis] 5 mg PO BID Discontinued Furosemide [Lasix] 40 mg PO DAILY Discharge Medication List Apixaban [Eliquis] 5 mg PO BID 08/28/21 [History] Ascorbic Acid [Vitamin C] 500 mg PO DAILY 08/28/21 [History] Metoprolol Succinate (ER) [Toprol XL] 25 mg PO DAILY 08/28/21 [History] lisinopriL [Zestril] 5 mg PO DAILY 08/28/21 [History] Aspirin 81 mg PO DAILY 30 Days #30 08/31/21 [Rx] Furosemide [Lasix] 40 mg PO BID@0900,1600 30 Days #60 tab 08/31/21 [Rx] Spironolactone [Aldactone] 25 mg PO DAILY 30 Days #30 tab 08/31/21 [Rx] Follow up Appointment(s)/Referral(s): David Tovar MD [Primary Care Provider] - 1-2 Days (This will be a new Patient Appointment for Pt.) Activity/Diet/Wound Care/Special Instructions: Discuss with your new primary care provider social security or disability. The Social Security Office in [place] can be reached at [phone] Discharge/Stand Alone Forms: Who Do I Call?, Personal Information Strategist
--- NOTE | 2021-08-31 09:56 | P.PN ---
Subjective The patient is a 51-year-old gentleman with a past medical history of methamphetamine abuse, heroin abuse, pulmonary embolism on Eliquis, Covid-19 ho spitalized at [facility] discharged on 08/03/21, COPD, recent diagnosis of cardiomyopathy with EF 15-20%. Patient is homeless. 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 We are consulted for congestive heart failure and chest pain. Presented to the hospital complaining of increasing shortness of breath. The patient was admitted recently in 07/28/2021-August 03 2021 to [facility] with shortness of breath and he was diagnosed was PE. CTA on 07/28/2021 revealed 3 small segmental branch emboli identified in the right lung, cardiomegaly, with small right greater than left pleural effusions, groundglass changes suspect a combination of Covid pneumonia and interstitial pulmonary edema. He underwent an echo on 07/29/21 that showed an EF between 15-20%, severe hypokinesis of the left ventricle, trace to mild mitral regurgitation, mild tricuspid regurgitation, RVSP of 30 mmHg. He was treated with IV Diuretics, stabilized and discharged on PO Lasix 40mg daily, ELiquis, lisinopril 5 mg daily, metoprolol succinate 25 mg daily 08/31/21 Patient seen and examined at bedside, no acute distress. He endorses continuous generalized pain. He denies chest pain or shortness of breath. He denies dyspnea, orthopnea. No lower extremity edema. He is maintained on PO Lasix 40mg BID. Eliquis 5 mg twice a day, aspirin 81 mg daily, lisinopril 5 mg daily, metoprolol succinate 25 mg daily, sprionolactone 25 mg daily Patient did receive IV Lasix 40mg x1 on 08/30/21 morning Labs, sodium 133, potassium 4.1, BUN 46, serum creatinine 1.8, magnesium 1.9 Echocardiogram revealed an EF of less than 20%, severe global hypokinesis of the LV, mild to moderate mitral regurgitation, moderate to severe tricuspid regurgitation, moderate to severe pulmonary hypertension with an RVSP of 60 mmHg GENERAL: Well-appearing, well-nourished and in no acute distress. NECK: Supple without JVD or thyromegaly. LUNGS: Breath sounds clear to auscultation bilaterally. Respiration equal and unlabored. No wheezes, rales or rhonchi. HEART: Regular rate and rhythm without Systolic ejection murmur at apex. S1 and S2 heard. EXTREMITIES: Normal range of motion, no edema. No clubbing or cyanosis. Peripheral pulses intact. ASSESSMENT Acute heart failure with reduced ejection fraction Cardiomyopathy, unknown if ischemic vs non-ischemic at this time History of pulmonary embolism on Eliquis History of methamphetamine abuse History of heroin abuse Recent Covid-19 Pneumonia Acute Kidney injury Mitral regurgitation Pulmonary hypertension PLAN PO Lasix 40mg BID Continue to maximize heart failure medication regimen Continue aspirin, Eliquis, Lisinopril, metoprolol succinate and spironolactone From a cardiology perspective, patient is stable to be discharged on current medication regimen. Cardiomyopathy workup, as in cardiac catheterization recommended to be completed as an outpatient. Recommend follow up with Dr. Foster in 1 week. Nurse Practitioner note has been reviewed, I agree with a documented findings and plan of care. Patient was seen and examined. Objective - Vital Signs Vital signs: Vital Signs Temp 98.3 F 08/31/21 06:40 Pulse 87 08/31/21 08:25 Resp 16 08/31/21 08:25 BP 108/76 08/31/21 08:25 Pulse Ox 97 08/31/21 08:25 Intake & Output 08/30/21 08/31/21 08/31/21 18:59 06:59 18:59 Intake Total 1720 Balance 1720 Weight 77.66 kg Intake: Oral 1720 Other: Voiding Method Toilet Toilet Urinal Urinal # Voids 1 - Labs CBC & Chem 7: 08/30/21 07:14 08/31/21 06:46 Labs: Abnormal Lab Results - Last 24 Hours (Table) 08/30/21 08/30/21 08/30/21 Range/Units 11:56 17:29 17:46 Sodium (137-145) mmol/L BUN (9-20) mg/dL Creatinine (0.66-1.25) mg/dL POC Glucose (mg/dL) 100 H 47 L 40 L (75-99) mg/dL 08/30/21 08/30/21 08/30/21 Range/Units 18:09 18:12 18:33 Sodium (137-145) mmol/L BUN (9-20) mg/dL Creatinine (0.66-1.25) mg/dL POC Glucose (mg/dL) 33 L 39 L 119 H (75-99) mg/dL 08/31/21 08/31/21 08/31/21 Range/Units 00:21 02:05 06:46 Sodium 133 L (137-145) mmol/L BUN 46 H (9-20) mg/dL Creatinine 1.82 H (0.66-1.25) mg/dL POC Glucose (mg/dL) 113 H 104 H (75-99) mg/dL
[2021-08-31] MEDS: lisinopriL 5 MG TAB PO SCH (10:54)
[2021-08-31 12:18] LABS: Glucose,Whole Blood 127 mg/dL (75-99)
[2021-08-31 13:14] VITALS: PULSE 84; RESP 20
== END 2021-08-31 13:15 | disposition home or self-care (01) ==
LOC: EC 19:36 → 6NMEDSUR 22:24
PROVIDERS: ADMIT Internal Medicine; ATTEND Internal Medicine
DX: I50.23 Acute on chronic systolic (congestive) heart failure (principal); N17.9 Acute kidney failure, unspecified; I42.9 Cardiomyopathy, unspecified; I20.0 Unstable angina; I27.20 Pulmonary hypertension, unspecified; I08.1 Rheumatic disorders of both mitral and tricuspid valves; Z91.19 Patient's noncompliance with other medical treatment and regimen; J44.9 Chronic obstructive pulmonary disease, unspecified; E11.9 Type 2 diabetes mellitus without complications; M54.9 Dorsalgia, unspecified; R10.9 Unspecified abdominal pain; I51.7 Cardiomegaly; R00.0 Tachycardia, unspecified; F15.10 Other stimulant abuse, uncomplicated; F11.10 Opioid abuse, uncomplicated; Z59.00 Homelessness unspecified; E66.9 Obesity, unspecified; Z68.26 Body mass index [BMI] 26.0-26.9, adult; Z20.822 Contact with and (suspected) exposure to COVID-19; Z79.01 Long term (current) use of anticoagulants; Z79.899 Other long term (current) drug therapy; Z88.0 Allergy status to penicillin; Z86.14 Personal history of Methicillin resistant Staphylococcus aureus infection; Z86.16 Personal history of COVID-19; Z87.891 Personal history of nicotine dependence; Z90.49 Acquired absence of other specified parts of digestive tract; Z98.890 Other specified postprocedural states; Z86.711 Personal history of pulmonary embolism; Z87.01 Personal history of pneumonia (recurrent)
CPT/HCPCS: 96376 ×3; 96375 ×3; 96361; 96374; 99285; 36415; 93005; 93306; 83880; 80053; 80048 ×3; 84443; 83690; 83735 ×2; 84484 ×2; 85025 ×3; 85610; 85730; 83036; 87635; 71046; 74018; 71275; G0378 ×4; J2270 ×4; J1940 ×2; J2405; Q9967

== ENCOUNTER 2021-10-03 15:01 | Inpatient (IN) | payer OTHER ==
[2021-10-03] MEDS ORDERED: SODIUM CHLORIDE 0.9% 1,000 ML IV STA (15:43)
[2021-10-03 15:57] LABS: Anisocytosis Slight; Basophils # (A) 0.1 k/uL (0-0.2); Basophils % (A) 1 %; Eosinophils # (A) 0.4 k/uL (0-0.7); Eosinophils % (A) 5 %; HCT 44.7 % (39.0-53.0); HGB 13.5 gm/dL (13.0-17.5); Hypochromasia Moderate; Lymphocytes # (A) 1.9 k/uL (1.0-4.8); Lymphocytes % (A) 22 %; MCHC 30.3 g/dL (31.0-37.0); MCV 85.8 fL (80.0-100.0); Mean Platelet Volume 7.1; Monocytes # (A) 0.8 k/uL (0-1.0); Monocytes % (A) 10 %; Neutrophils # (A) 5.1 k/uL (1.3-7.7); Neutrophils % (A) 60 %; Platelet Count 362 k/uL (150-450); RBC 5.21 m/uL (4.30-5.90); WBC 8.5 k/uL (3.8-10.6)
--- NOTE | 2021-10-03 16:09 | ED ---
Chest Pain HPI - General Chief Complaint: Chest Pain Stated Complaint: heart concerns Time Seen by Provider: 10/03/21 15:25 Source: patient, RN notes reviewed Mode of arrival: ambulatory Limitations: no limitations - History of Present Illness Initial Comments: 51-year-old male to emergency Department with complaints of chest pain she has been going on for over a month he is unable to totally quantified or qualify. He is very tearful during the interview he states he knows he is going to is very anxious he does not seem to voice any thoughts of harm to himself. From old charting does have a history of PE and prior cardiac workups. MD Complaint: chest pain, other - Related Data Home Medications Medication Instructions Recorded Confirmed Apixaban [Eliquis] 5 mg PO BID 08/28/21 08/28/21 Ascorbic Acid [Vitamin C] 500 mg PO DAILY 08/28/21 08/28/21 Metoprolol Succinate (ER) [Toprol 25 mg PO DAILY 08/28/21 08/28/21 XL] lisinopriL [Zestril] 5 mg PO DAILY 08/28/21 08/28/21 Previous Rx's Medication Instructions Recorded Aspirin 81 mg PO DAILY 30 Days #30 08/31/21 Furosemide [Lasix] 40 mg PO BID@0900,1600 30 Days #60 08/31/21 tab Spironolactone [Aldactone] 25 mg PO DAILY 30 Days #30 tab 08/31/21 Allergies Allergy/AdvReac Type Severity Reaction Status Date / Time Penicillins Allergy Rash/Hives Verified 10/03/21 15:06 Review of Systems ROS Statement: Those systems with pertinent positive or pertinent negative responses have been documented in the HPI. ROS Other: All systems not noted in ROS Statement are negative. Past Medical History Past Medical History: Diabetes Mellitus, Pulmonary Embolus (PE) Additional Past Medical History / Comment(s): back pain, diabetic but on no meds, covid History of Any Multi-Drug Resistant Organisms: MRSA Date of last positivie culture/infection: 2014 MDRO Source:: stomach Past Surgical History: Appendectomy Additional Past Surgical History / Comment(s): Ear surgery, skull sx Past Psychological History: Unable to Obtain Smoking Status: Former smoker Past Alcohol Use History: None Reported Past Drug Use History: None Reported General Exam - General Exam Comments Initial Comments: This a well-developed well-nourished awake alert anxious male Limitations: no limitations General appearance: alert, anxious Head exam: Present: atraumatic, normocephalic, normal inspection Eye exam: Present: normal appearance, PERRL, EOMI. Absent: scleral icterus, conjunctival injection, periorbital swelling ENT exam: Present: normal exam, mucous membranes moist Neck exam: Present: normal inspection, full ROM, other. Absent: tenderness, meningismus, lymphadenopathy Respiratory exam: Present: rales, decreased breath sounds. Absent: respiratory distress, wheezes, rhonchi, stridor, chest wall tenderness (No stridor JVD or bruits) Cardiovascular Exam: Present: normal rhythm, tachycardia, normal heart sounds. Absent: systolic murmur, diastolic murmur, rubs, gallop, clicks GI/Abdominal exam: Present: soft, normal bowel sounds. Absent: distended, tenderness, guarding, rebound, rigid, bruit, pulsatile mass Extremities exam: Present: normal inspection, full ROM, normal capillary refill. Absent: tenderness, pedal edema, joint swelling, calf tenderness Back exam: Present: normal inspection Neurological exam: Present: alert, oriented X3, CN II-XII intact Psychiatric exam: Present: normal affect, normal mood Skin exam: Present: warm, dry, intact, normal color. Absent: rash Course Vital Signs 10/03/21 15:04 Temperature 98.7 F Pulse Rate 114 H Respiratory 24 Rate Blood Pressure 134/82 O2 Sat by Pulse 99 Oximetry Chest Pain MDM - MDM Imaging reviewed evidence of cardiac megaly and CHF. Patient will be admitted for evaluation by cardiology for CHF he does have a poor ejection fraction based on previous echocardiogram. I did discuss case with Dr. Morse. Also patient will be evaluated by psychiatry for depression. Disposition Clinical Impression: CHF (congestive heart failure), Chest pain, Depression Disposition: ADMITTED IP TO THIS [facility] Condition: Fair Referrals: None,Stated [Primary Care Provider] - 1-2 days
[2021-10-03 16:13] LABS: Partial Thromboplastin Time 26.4 sec (22.0-30.0); Prothrombin Time 10.8 sec (9.0-12.0)
--- NOTE | 2021-10-03 16:31 | XR ---
EXAMINATION TYPE: XR chest 2V DATE OF EXAM: 10/03/2021 COMPARISON: 08/28/2021 HISTORY: Chest pain TECHNIQUE: FINDINGS: Heart is enlarged. There is mild pulmonary congestion. Bony thorax is intact. There is no p leural effusion. IMPRESSION: There is mild congestive heart failure similar to old exam.
[2021-10-03 16:34] LABS: ALT 40 U/L (4-49); AST 52 U/L (17-59); African American GFR (CKD) >90 (>60 ml/min/1.73 sqM); Albumin 3.9 g/dL (3.5-5.0); Alcohol <10 mg/dL; Alkaline Phosphatase 113 U/L (38-126); Anion Gap 10 mmol/L; Blood Urea Nitrogen 26 mg/dL (9-20); Calcium 8.7 mg/dL (8.4-10.2); Carbon Dioxide 20 mmol/L (22-30); Chloride 109 mmol/L (98-107); Glucose 124 mg/dL (74-99); Lipase 162 U/L (23-300); Non-African American GFR(CKD) >90 (>60 ml/min/1.73 sqM); Potassium 4.4 mmol/L (3.5-5.1); Sodium 139 mmol/L (137-145); Total Bilirubin 0.7 mg/dL (0.2-1.3); Total Protein 7.7 g/dL (6.3-8.2)
[2021-10-03] MEDS ORDERED: FUROSEMIDE 10 MG/ML 4 ML VIAL IV STA (17:24)
[2021-10-03] MEDS ORDERED: NALOXONE 0.4 MG/ML 1 ML VIAL IV PRN (17:57)
--- NOTE | 2021-10-03 18:03 | P.HPIM ---
History of Present Illness H&P Date: 10/03/21 Chief Complaint: sob 51-year-old male with history of cardiomyopathy, ejection fraction 15-20%, unknown ischemic versus nonischemic, history of pulmonary embolus, presented to emergency Department with complaints of shortness of breath and chest pain that has been going on for over a month, he is unable to describe the pain but states that happens when he exerts himself and cant breath. He states he can't walk 6 feet without getting short of breath therefore he can't work. He is not taking his CHF meds because he has no money, states he is only taking eliquis. He is ve ry tearful during the interview, he states that he can't work and he is homeless, applied for disability and has something coming up in october in that regard but he knows he is going to before that. He is very tearful and anxious about dying. Denied taking any anxiety or depression meds. He has a history of methamphetamine and other drugs abuse but denied using any recently. Vital signs the ER revealed tachycardia with a heart rate between 100-110. Rest of vital located, Work up in the ER revealed normal CBC and unremarkable CMP, troponin normal, BNP 4700. Chest x-ray showed mild CHF similar to old chest x- ray. Patient was admitted to the hospital for further evaluation and managem ent. Review of Systems Complete review of system was performed, negative except for what is stated in HPI Past Medical History Past Medical History: Diabetes Mellitus, Pulmonary Embolus (PE) Additional Past Medical History / Comment(s): back pain, diabetic but on no meds, covid History of Any Multi-Drug Resistant Organisms: MRSA Date of last positivie culture/infection: 2014 MDRO Source:: stomach Past Surgical History: Appendectomy Additional Past Surgical History / Comment(s): Ear surgery, skull sx Past Psychological History: Unable to Obtain Smoking Status: Former smoker Past Alcohol Use History: None Reported Past Drug Use History: None Reported Medications and Allergies Home Medications Medication Instructions Recorded Confirmed Type Furosemide [Lasix] 40 mg PO BID@0900,1600 30 Days #60 08/31/21 10/03/21 Rx tab Spironolactone [Aldactone] 25 mg PO DAILY 30 Days #30 tab 08/31/21 10/03/21 Rx Allergies Allergy/AdvReac Type Severity Reaction Status Date / Time Penicillins Allergy Rash/Hives Verified 10/03/21 17:53 Physical Exam Vitals: Vital Signs Temp Pulse Resp BP Pulse Ox 10/03/21 17:24 102 H 24 128/38 99 10/03/21 16:30 100 20 126/60 98 10/03/21 15:04 98.7 F 114 H 24 134/82 99 Intake and Output 10/03/21 10/03/21 10/03/21 06:59 14:59 22:59 Other: Weight 77.111 kg Constitutional: No acute distress, conversant, pleasant Eyes:Anicteric sclerae, moist conjunctiva, no lid-lag, PERRLA, ENMT: Oropharynx clear, no erythema, exudates Neck: Supple, FROM, no masses, or JVD, No carotid bruits, No thyromegaly Lungs: Clear to auscultation, Clear to percussion, Normal respiratory effort, no accessory muscle use Cardiovascular: Heart regular in rate and rhythm, No murmurs, gallops, or rubs, No peripheral edema Abdominal: Soft, Nontender, no guarding, rebound or rigidity, Normoactive bowel sounds, No hepatomegaly, No splenomegaly, No palpable mass Skin: Normal temperature, tone, texture, turgor, no induration, No subcutaneous nodules, No rash, lesions, No ulcers Extremities: No digital cyanosis, No clubbing, Pedal pulses intact and symmetrical, Radial pulses intact and symmetrical, No calf tenderness Psychiatric: Alert and oriented to person, place and time, appropriate affect, intact judgement Neuro: Muscles Strength 5/5 in all 4 extremities, Sensation to light touch grossly present throughout, Cranial nerves II-XII grossly intact, no focal sensory deficits Results CBC & Chem 7: 10/03/21 15:18 10/03/21 15:18 Labs: Abnormal Lab Results - Last 24 Hours (Table) 10/03/21 10/03/21 Range/Units 15:18 15:18 MCHC 30.3 L (31.0-37.0) g/dL RDW 16.0 H (11.5-15.5) % Chloride 109 H (98-107) mmol/L Carbon Dioxide 20 L (22-30) mmol/L BUN 26 H (9-20) mg/dL Glucose 124 H (74-99) mg/dL Assessment and Plan Plan: Acute systolic congestive heart failure Start diuresis with Lasix 20 mg IV twice a day Monitor I's and O's Daily weights Cardiology consult, will likely need work up for cardiomyopathy this admission as he is not reliable with follow ups. Restart CINTHIA inhibitor and beta keli. History of recent PE Continue anticoagulation with eliquis History of drug abuse Check urine tox screen Anxiety Consult psych DVT prophylaxis On eliquis Admit to inpatient, expected length of stay more than 2 midnights.
[2021-10-03] MEDS ORDERED: HYDROmorphone 1 MG/ML 1 ML SYRINGE IVP STA (18:28)
[2021-10-03] MEDS: lisinopriL 10 MG TAB PO SCH (19:04)
[2021-10-03] MEDS: SPIRONOLACTONE 25 MG TAB PO SCH (19:04)
[2021-10-03] MEDS: METOPROLOL SUCCINATE (ER) 25 MG TAB.ER.24H PO SCH (19:04)
[2021-10-03 20:46] LABS: Amphetamine Screen,Urine Detected (NotDetected); Barbiturate Screen,Urine Not Detected (NotDetected); Benzodiazepines Screen,Urine Not Detected (NotDetected); Cocaine Screen,Urine Not Detected (NotDetected); Methadone Screen, Urine Not Detected (NotDetected); Opiate Screen,Urine Not Detected (NotDetected); Oxycodone Screen, Urine Not Detected (NotDetected); Phencyclidine Screen,Urine Not Detected (NotDetected); Tricyclic Antidepressant,Urine Not Detected (NotDetected); Urn Cannabinoid Scrn Not Detected (NotDetected)
[2021-10-03] MEDS: APIXABAN 5 MG TAB PO SCH (21:07)
[2021-10-03] MEDS: FUROSEMIDE 10 MG/ML 2 ML VIAL IV SCH (21:13)
[2021-10-04] MEDS ORDERED: FUROSEMIDE 40 MG TAB PO SCH
[2021-10-04] MEDS: HYDROmorphone 1 MG/ML 1 ML SYRINGE IVP PRN ×3 (02:14→16:51)
[2021-10-04] MEDS ORDERED: CALCIUM CARBONATE 500 MG CHEWABLE PO PRN (03:59)
[2021-10-04 08:34] LABS: Anisocytosis Slight; Basophils # (A) 0.1 k/uL (0-0.2); Basophils % (A) 1 %; Eosinophils # (A) 0.6 k/uL (0-0.7); Eosinophils % (A) 6 %; HCT 46.5 % (39.0-53.0); HGB 14.3 gm/dL (13.0-17.5); Hypochromasia Marked; Lymphocytes % (A) 20 %; MCH 26.8 pg (25.0-35.0); MCHC 30.8 g/dL (31.0-37.0); MCV 87.2 fL (80.0-100.0); Mean Platelet Volume 7.2; Monocytes # (A) 1.1 k/uL (0-1.0); Monocytes % (A) 10 %; Neutrophils # (A) 6.2 k/uL (1.3-7.7); Neutrophils % (A) 60 %; Platelet Count 431 k/uL (150-450); RBC 5.34 m/uL (4.30-5.90); RDW 16.1 % (11.5-15.5); WBC 10.3 k/uL (3.8-10.6)
[2021-10-04 08:45] LABS: ALT 40 U/L (4-49); AST 48 U/L (17-59); African American GFR (CKD) >90 (>60 ml/min/1.73 sqM); Albumin 3.9 g/dL (3.5-5.0); Alkaline Phosphatase 100 U/L (38-126); Anion Gap 7 mmol/L; Blood Urea Nitrogen 29 mg/dL (9-20); Carbon Dioxide 26 mmol/L (22-30); Chloride 103 mmol/L (98-107); Glucose 94 mg/dL (74-99); Magnesium 1.9 mg/dL (1.6-2.3); Non-African American GFR(CKD) >90 (>60 ml/min/1.73 sqM); Potassium 4.4 mmol/L (3.5-5.1); Sodium 136 mmol/L (137-145); Total Bilirubin 0.7 mg/dL (0.2-1.3); Total Protein 7.8 g/dL (6.3-8.2)
[2021-10-04] MEDS: lisinopriL 10 MG TAB PO SCH (09:08)
[2021-10-04] MEDS: APIXABAN 5 MG TAB PO SCH ×2 (09:08→20:15)
[2021-10-04] MEDS: SPIRONOLACTONE 25 MG TAB PO SCH (09:08)
[2021-10-04] MEDS: METOPROLOL SUCCINATE (ER) 25 MG TAB.ER.24H PO SCH (09:09)
[2021-10-04] MEDS: FUROSEMIDE 10 MG/ML 2 ML VIAL IV SCH ×2 (09:09→20:15)
--- NOTE | 2021-10-04 12:21 | P.CRDCN ---
History of Present Illness History of present illness: The patient is a 51-year-old gentleman with a past medical history of methamphetamine abuse, heroin abuse, pulmonary embolism on Eliquis, Covid-[address] [facility] discharged on 08/03/21, COPD, recent diagnosis of cardiomyopathy with EF 15-20%. Patient is homeless. 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 We are consulted for congestive heart failure and chest pain. Presented to the hospital complaining of midsternal and left sided chest pain and some shortness of breath. He is very tearful on exam. He states this has been "going on for months". Chest pain is non-radiating. It is aggravated by palpation to the chest. Denies exertional chest pain or dyspnea on exertion. He denies any symptoms of orthopnea or PND, palpitations, lightheadedness, dizziness or syncope. He states he ran out of his medications 1 day ago. He denies tobacco use. He endorses meth use 2 months ago. Denies alcohol use. -The patient was admitted recently in 07/28/2021-August 03 2021 to [facility] with shortness of breath and he was diagnosed was PE. CTA on revealed 3 small segmental branch emboli identified in the right lung, cardiomegaly, with small right greater than left pleural effusions, groundglass changes suspect a combination of Covid pneumonia and interstitial pulmonary edema. He underwent an echo on 07/29/21 that showed an EF between 15-20%, severe hypokinesis of the left ventricle, trace to mild mitral regurgitation, mild tricuspid regurgitation, RVSP of 30 mmHg. He was treated with IV Diuretics, stabilized and discharged on PO Lasix 40mg daily, ELiquis, lisinopril 5 mg daily, metoprolol succinate 25 mg daily. -He was recently admitted at [facility] in July 2021 for acute heart failure exacerbation, he was treated with IV Diuresis and discharged on heart failure medication regimen. It was recommended for cardiomyopathy workup to be done as an outpatient at that time. DIAGNOSTICS EKG reveals sinus tachycardia, heart rate 107, non-specific T wave abnormalities. No evidence of acute ischemia, prior EKG with similar findings Telemetry tracings indicate sinus mechanism, heart rate 70s80s Echocardiogram in July 2021 revealed EF less than 20%, RV is severely enlarged, LA is mildly dilated, mild to moderate mitral regurgitation, moderate to severe tricuspid regurgitation, moderate to severe pulmonary hypertension with an RVSP of 60 mmHg Chest xray mild congestive heart failure. Similar to previous exam. Laboratory reviewed, WBC 10.3, hemoglobin 14.3, platelets 431, d-dimer negative, sodium 136, potassium 4.4, BUN 29, serum creatinine 0.9, magnesium 1.9, troponin negative 2, proBNP 4000 760, urine toxicology positive for amphetamines and methamphetamines REVIEW OF SYSTEMS At the time of my exam: CONSTITUTIONAL: Denies fever or chills. CARDIOVASCULAR: Denies chest pain, shortness of breath, orthopnea, PND or palpitations. RESPIRATORY: Denies cough. GASTROINTESTINAL: Denies abdominal pain, diarrhea, constipation, nausea or vomiting. MUSCULOSKELETAL: Denies myalgias. NEUROLOGIC: Denies numbness, tingling, headacbe or weakness. ENDOCRINE: Denies fatigue, weight change, polydipsia or polyurina. GENITOURINARY: Denies burning, hematuria or urgency with micturation. HEMATOLOGIC: Denies history of anemia or bleeding. PHYSICAL EXAMINATION Blood pressure 104/70, heart rate 85, afebrile, saturations 98% on room air CONSTITUTIONAL: No apparent distress. HEENT: Head is normocephalic. Pupils are equal, round. Sclerae anicteric. Mucous membranes of the mouth are moist. No JVD. No carotid bruit. CHEST EXAMINATION: Lungs are clear to auscultation. No chest wall tenderness is noted on palpation or with deep breathing. HEART EXAMINATION: Regular rate and rhythm. S1, S2 heard. Systolic ejection murmur at apex ABDOMEN: Soft, nontender. Positive bowel sounds. EXTREMITIES: 2+ peripheral pulses, no lower extremity edema and no calf tenderness. NEUROLOGIC EXAMINATION: Patient is awake, alert and oriented x3. ASSESSMENT Acute heart failure with reduced ejection fraction Cardiomyopathy, unknown if ischemic vs non-ischemic at this time Valvular heart disease Pulmonary hypertension History of pulmonary embolism on Eliquis History of methamphetamine abuse History of heroin abuse PLAN Continue IV lasix 20mg BID, likely transition to PO tomorrow Monitor renal function and electrolytes, monitor I/Os, daily weights Continue to maximize heart failure medication regimen Continue Lisinopril, metoprolol succinate and spironolactone Further recommendations based on clinical course Nurse practitioner note has been reviewed by physician. Signing provider agrees with the documented findings, assessment, and plan of care. Past Medical History Past Medical History: Pulmonary Embolus (PE) Additional Past Medical History / Comment(s): back pain, previous covid, borderline DM History of Any Multi-Drug Resistant Organisms: MRSA Date of last positivie culture/infection: 2014 MDRO Source:: stomach Past Surgical History: Appendectomy Additional Past Surgical History / Comment(s): Ear surgery, skull sx Past Psychological History: Depression Smoking Status: Former smoker Past Alcohol Use History: None Reported Past Drug Use History: Methamphetamine Medications and Allergies Home Medications Medication Instructions Recorded Confirmed Type Furosemide [Lasix] 40 mg PO BID@0900,1600 30 Days #60 08/31/21 10/03/21 Rx tab Spironolactone [Aldactone] 25 mg PO DAILY 30 Days #30 tab 08/31/21 10/03/21 Rx Allergies Allergy/AdvReac Type Severity Reaction Status Date / Time Penicillins Allergy Rash/Hives Verified 10/03/21 17:53 Physical Exam Vitals: Vital Signs Temp Pulse Pulse Resp BP BP Pulse Ox 10/04/21 04:00 97.8 F 89 18 102/70 99 10/04/21 02:00 16 10/04/21 00:00 83 16 107/68 99 10/03/21 20:45 97.3 F L 95 16 120/84 98 10/03/21 20:00 95 16 10/03/21 19:09 84 18 122/62 99 10/03/21 17:24 102 H 24 128/38 99 10/03/21 16:30 100 20 126/60 98 10/03/21 15:04 98.7 F 114 H 24 134/82 99 Intake and Output 10/03/21 10/04/21 10/04/21 22:59 06:59 14:59 Output Total 800 Balance -800 Output: Urine 800 Other: Weight 77.111 kg 76 kg Results 10/04/21 07:54 10/04/21 07:54 Cardiac Enzymes 10/03/21 10/03/21 Range/Units 15:18 15:18 AST 52 (17-59) U/L Troponin I 0.015 (0.000-0.034) ng/mL Coagulation 10/03/21 Range/Units 15:18 PT 10.8 (9.0-12.0) sec APTT 26.4 (22.0-30.0) sec CBC 10/03/21 Range/Units 15:18 WBC 8.5 (3.8-10.6) k/uL RBC 5.21 (4.30-5.90) m/uL Hgb 13.5 (13.0-17.5) gm/dL Hct 44.7 (39.0-53.0) % Plt Count 362 (150-450) k/uL Comprehensive Metabolic Panel 10/03/21 Range/Units 15:18 Sodium 139 (137-145) mmol/L Potassium 4.4 (3.5-5.1) mmol/L Chloride 109 H (98-107) mmol/L Carbon Dioxide 20 L (22-30) mmol/L BUN 26 H (9-20) mg/dL Creatinine 0.81 (0.66-1.25) mg/dL Glucose 124 H (74-99) mg/dL Calcium 8.7 (8.4-10.2) mg/dL AST 52 (17-59) U/L ALT 40 (4-49) U/L Alkaline Phosphatase 113 (38-126) U/L Total Protein 7.7 (6.3-8.2) g/dL Albumin 3.9 (3.5-5.0) g/dL Current Medications Generic Name Dose Route Start Last Admin Trade Name Freq PRN Reason Stop Dose Admin Apixaban 5 mg 10/03/21 21:00 10/03/21 21:07 Apixaban 5 Mg Tab PO 5 mg BID KOURTNEY Administration Protocol Calcium Carbonate/Glycine 500 mg 10/04/21 03:59 Calcium Carbonate 500 Mg Chewable PO QID PRN Heartburn Furosemide 20 mg 10/03/21 21:00 10/03/21 21:13 Furosemide 10 Mg/Ml 2 Ml Vial IV Not Given Q12HR KOURTNEY Hydromorphone HCl 1 mg 10/04/21 00:34 10/04/21 02:14 Hydromorphone 1 Mg/Ml 1 Ml Syringe IVP 1 mg Q4HR PRN Administration Pain Lisinopril 10 mg 10/03/21 18:00 10/03/21 19:04 Lisinopril 10 Mg Tab PO 10 mg DAILY KOURTNEY Administration Metoprolol Succinate 25 mg 10/03/21 18:00 10/03/21 19:04 Metoprolol Succinate (Er) 25 Mg Tab.Er.24h PO 25 mg DAILY KOURTNEY Administration Naloxone HCl 0.2 mg 10/03/21 17:57 Naloxone 0.4 Mg/Ml 1 Ml Vial IV Q2M PRN Opioid Reversal Spironolactone 25 mg 10/03/21 18:00 10/03/21 19:04 Spironolactone 25 Mg Tab PO 25 mg DAILY KOURTNEY Administration Intake and Output 10/03/21 10/04/21 10/04/21 22:59 06:59 14:59 Output Total 800 Balance -800 Output: Urine 800 Other: Weight 77.111 kg 76 kg 10/03/21 15:18 10/03/21 15:18
--- NOTE | 2021-10-04 14:00 | P.CN ---
Psychiatric Consult - . Consult date: 10/04/21 Consult:: 10/04/21 13:08 IDENTIFYING DATA: This patient is a 51-year-old male, currently homeless, single, no kids and unemployed. REASON FOR REFERRAL: Psychiatry was consulted for depression HISTORY OF PRESENT ILLNESS: The patient presented to the hospital on 10/03 for complaints of chest pain which apparently has been going on for one month. Patient was apparently tearful and anxious on evaluation in the ER. Patient was not admitting any homicidal or suicidal thoughts. His UDS was positive for methamphetamine and amphetamines. Patient does have a history of PE. He has had multiple cardiac workups in the past. Patient was found to have cardiomegaly and CHF with poor ejection fraction. Cardiology has been following. Pyrotechnic Mixer was asked to see patient today for evaluation and recommendations. Patient was seen lying on his bed and was agreeable to speak. Patient spoke about his "heart problems" before coming into the hospital and states that "I couldn't deal with it anymore". He states that he is gradually been improving since being in the hospital however claims that he still has chest pain on and off. He states that he lost his job after [employer] covid and states that he was too sick to continue on with work. He also states that he has been having financial difficulties and also recently lost his mother to [facility] approximately 2 months ago. He states it is of mild anxiety and mild depression at times however states he seems that he has try to remain more optimistic and claims that he is feeling "not that depressed" considering what he is going through. He states that he does have "on and off" sleep and has a fair appetite. He is fairly future oriented. At this time patient denies any suicidal or homical ideations, intent or plan. Patient denies any auditory, visual hallucinations and denies any paranoia or delusions. Patients admits to using no recreational drugs. He states that he quit cigarettes. He is denying methamphetamine use even though his UDS is positive for methamphetamine and amphetamines. He claims that "this probably came from inhalation at one of the homes I was staying". PAST PSYCHIATRIC HISTORY: Patient has a a history of depression/anxiety. Patient claims that he has been on antidepressants in the past however at this time does not want to be started on anything. Patient was last psychiatrically admitted to the mental health unit in December 2020 for 1 day. Patient denies any psychiatric outpatient follow-up. Patient denies any history of suicide attempts in the past. Past Medical History: Diabetes Mellitus, Pulmonary Embolus (PE) Additional Past Medical History / Comment(s): back pain, diabetic but on no meds, covid ALLERGIES: as per EMR. CHEMICAL DEPENDENCY HISTORY: as per HPI. FAMILY PSYCHIATRIC/SUBSTANCE USE HISTORY: denies SOCIAL HISTORY: Patient was born and raised in [facility] [facility]. He states that he completed up to 10th grade in school. 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 He states that he did go to senior living 8 years ago for "property crime". He does not have any kids is currently single. He is unemployed. He is homeless.. MENTAL STATUS EXAM: General Appearance: Patient appears to have several tattoos, short in stature, stated age is alert, directable, and cooperative. Patient appears to have fair hygiene and grooming wearing hospital gown with fair eye contact. Behavior: Patient is calmly lying in bed without any agitated behavior. Speech: Patient's speech is fluent and nonpressured. Mood/Affect: Patient reports their mood is "fine now", affect is congruent Suicidality/Homicidality: Patient denies having any suicidal or homicidal ideation intent or plan. Perceptions: Patient denies any visual hallucinations and denies any auditory hallucinations Though content/process: There is no evidence of any delusional thought content and thought process is linear and goal-directed. Memory and concentration: AOX3, grossly intact for the purposes of this session. Can spell "WORLD" backwards Judgment and insight: Chronically limited IMPRESSIONS: Depressive disorder unspecified, likely secondary to substance use versus major depressive disorder mild Methamphetamine abuse PLAN: -At this time patient DOES NOT meet criteria for inpatient psychiatric admission. -Would recommend the following medication changes/additions: Pyrotechnic Mixer spoke with patient about different medication options to help with his symptoms however patient adamantly refused to be started on any psychiatric medications. -cripple worker to provide patient with outpatient mental health/psychiatry resources for appropriate follow up upon discharge -Pyrotechnic Mixer spoke with patient about substance abuse and the harmful effects on medical and mental health, patient verbally understood and agreed. -cripple worker to provide patient substance use treatment resources including AA/NA meetings in the community. -Communicated plan to patient's nurse -Psychiatry will sign off at this time -Please contact with any questions.
--- NOTE | 2021-10-04 14:37 | P.PN ---
Subjective Patient was examined at bedside today slightly anxious however denies any active chest pain during my examination. He is resting comfortably no significant shortness of breath or pitting edema noted. Objective - Vital Signs Vital signs: Vital Signs Temp 97.8 F 10/04/21 07:58 Pulse 85 10/04/21 08:00 Resp 17 10/04/21 08:00 BP 104/70 10/04/21 07:58 Pulse Ox 98 10/04/21 07:58 Intake & Output 10/03/21 10/04/21 10/04/21 18:59 06:59 18:59 Output Total 800 Balance -800 Weight 77.111 kg 76 kg Output: Urine 800 - Exam Constitutional: in mild to moderate respiratory distress, conversant, pleasant Eyes:Anicteric sclerae, moist conjunctiva, no lid-lag, PERRLA, ENMT: Oropharynx clear, no erythema, exudates Neck: Supple, FROM, no masses, or JVD, No carotid bruits, No thyromegaly Lungs: Clear to auscultation, Clear to percussion, Normal respiratory effort, no accessory muscle use Cardiovascular: Heart regular in rate and rhythm, No murmurs, gallops, or rubs, No peripheral edema Abdominal: Soft, Nontender, no guarding, rebound or rigidity, Normoactive bowel sounds, No hepatomegaly, No splenomegaly, No palpable mass Skin: Normal temperature, tone, texture, turgor, no induration, No subcutaneous nodules, No rash, lesions, No ulcers Extremities: No digital cyanosis, No clubbing, Pedal pulses intact and symmetrical, Radial pulses intact and symmetrical, No calf tenderness Psychiatric: Alert and oriented to person, place and time, appropriate affect, intact judgement Neuro: Muscles Strength 5/5 in all 4 extremities, Sensation to light touch grossly present throughout, Cranial nerves II-XII grossly intact, no focal sensory deficits - Labs CBC & Chem 7: 10/04/21 07:54 10/04/21 07:54 Labs: Abnormal Lab Results - Last 24 Hours (Table) 10/03/21 10/03/21 10/03/21 Range/Units 15:18 15:18 20:07 MCHC 30.3 L (31.0-37.0) g/dL RDW 16.0 H (11.5-15.5) % Monocytes # (0-1.0) k/uL Sodium (137-145) mmol/L Chloride 109 H (98-107) mmol/L Carbon Dioxide 20 L (22-30) mmol/L BUN 26 H (9-20) mg/dL Glucose 124 H (74-99) mg/dL Ur Amphetamines Screen Detected H (NotDetected) U Methamphetamines Scrn Detected H (NotDetected) 10/04/21 10/04/21 Range/Units 07:54 07:54 MCHC 30.8 L (31.0-37.0) g/dL RDW 16.1 H (11.5-15.5) % Monocytes # 1.1 H (0-1.0) k/uL Sodium 136 L (137-145) mmol/L Chloride (98-107) mmol/L Carbon Dioxide (22-30) mmol/L BUN 29 H (9-20) mg/dL Glucose (74-99) mg/dL Ur Amphetamines Screen (NotDetected) U Methamphetamines Scrn (NotDetected) Assessment and Plan Assessment: Assessment: #1 congestive heart failure with reduced ejection fraction #2 history of pulmonary embolism on antibiotic vitalization #3 history of polysubstance abuse with heroin/amphetamines #4 essential hypertension #5 hyperlipidemia Plan: -Admit to medicine for close monitoring -Aspiration/fall precaution -Continue with IV diuresis Lasix 20 mg twice a day -Psychiatry recommendations noted recommend outpatient follow-up -Education regarding polysubstance abuse cessation provided -Continue with cardiology recommendations -DVT prophylaxis currently on Eliquis
[2021-10-04 17:08] VITALS: BMI 24.7
--- NOTE | 2021-10-04 17:31 | ECHOF ---
Referral Reason:repeat evaluate LV function MEASUREMENTS -------- HEIGHT: 175.3 cm WEIGHT: 75.7 kg BP: RVIDd: 2.9 cm (< 3.3) IVSd: 0.9 cm (0.6 - 1.1) LVIDd: 5.9 cm (3.9 - 5.3) LVPWd: 1.1 cm (0.6 - 1.1) IVSs: 1.3 cm LVIDs: 5.8 cm LVPWs: 1.1 cm FINDINGS -------- Limited Study The left ventricular size is normal. Left ventricular wall thickness is normal. There is severe g lobal hypokinesis of LV . Overall left ventricular systolic function is severely impaired with, an EF < 20%. There is no pericardial effusion. CONCLUSIONS -------- 1. The left ventricular size is normal. 2. Left ventricular wall thickness is normal. 3. There is severe global hypokinesis of LV . 4. Overall left ventricular systolic function is severely impaired with, an EF < 20%. 5. There is no pericardial effusion. VEGETABLES COOK: Cami Barriga [facility]
[2021-10-05] MEDS: HYDROmorphone 1 MG/ML 1 ML SYRINGE IVP PRN (05:27)
[2021-10-05] MEDS: APIXABAN 5 MG TAB PO SCH (08:06)
[2021-10-05] MEDS: FUROSEMIDE 10 MG/ML 2 ML VIAL IV SCH (08:06)
[2021-10-05] MEDS: SPIRONOLACTONE 25 MG TAB PO SCH (08:06)
[2021-10-05] MEDS: lisinopriL 10 MG TAB PO SCH (08:06)
[2021-10-05] MEDS: METOPROLOL SUCCINATE (ER) 25 MG TAB.ER.24H PO SCH (08:06)
[2021-10-05 10:32] VITALS: RESP 17; TEMP 97.6
--- NOTE | 2021-10-05 12:28 | P.DS ---
Providers Date of admission: 10/03/21 17:30 Expected date of discharge: 10/05/21 Attending physician: Larry Morse MD Consults: 10/03/21 17:28 Consult Physician Routine Consulting Provider: Calin Giles Consult Reason/Comments: CHF, chest pain Do you want consulting provider notified?: Yes Consult Physician Routine Consulting Provider: Renan Levy Consult Reason/Comments: Depression Do you want consulting provider notified?: Already Contacted Primary care physician: Stated None Hospital Course: 51-year-old male with history of cardiomyopathy, ejection fraction 15-20%, unknown ischemic versus nonischemic, history of pulmonary embolus, presented to emergency Department with complaints of shortness of breath and chest pain that has been going on for over a month, he is unable to describe the pain but states that happens when he exerts himself and cant breath. He states he can't walk 6 feet without getting short of breath therefore he can't work. He is not taking his CHF meds because he has no money, states he is only taking eliquis. He is very tearful during the interview, he states that he can't work and he is homeless, applied for disability and has something coming up in october in that regard but he knows he is going to before that. He is very tearful and anxious about dying. Denied taking any anxiety or depression meds. He has a history of methamphetamine and other drugs abuse but denied using any recently. Vital signs the ER revealed tachycardia with a heart rate between 100-110. Rest of vital located, Work up in the ER revealed normal CBC and unremarkable CMP, troponin normal, BNP 4700. Chest x-ray showed mild CHF similar to old chest x- ray. Patient was admitted to the hospital for further evaluation and management. patient was evaluated by cardiology team. He was started on IV Lasix for appropriate diuresis. His also extensively counseled regarding cessation of any polysubstance abuse. At this time he is well optimized and will be transitioned over to Lasix 20 mg daily on discharge. He is asked to follow-up with his primary care doctor and cardiology within 1 week of discharge. Today he denies any active chest pain, shortness of breath or palpitations. Case discussed with RN no overnight events. I did speak with cardiology that has cleared him for dc. decrease lisinopril dose 5 mg daily from 10 mg due to patient's blood pressure being on the labile side. Patient Condition at Discharge: Fair Plan - Discharge Summary Discharge Rx Participant: Yes New Discharge Prescriptions: New Apixaban [Eliquis] 5 mg PO BID 30 Days #60 tab lisinopriL [Zestril] 5 mg PO DAILY 30 Days #30 tab Metoprolol Succinate (ER) [Toprol XL] 25 mg PO DAILY 30 Days #30 Continue Spironolactone [Aldactone] 25 mg PO DAILY 30 Days #30 tab Changed Furosemide [Lasix] 20 mg PO BID@0900,1600 30 Days #60 tab Discharge Medication List Spironolactone [Aldactone] 25 mg PO DAILY 30 Days #30 tab 08/31/21 [Rx] Apixaban [Eliquis] 5 mg PO BID 30 Days #60 tab 10/05/21 [Rx] Furosemide [Lasix] 20 mg PO BID@0900,1600 30 Days #60 tab 10/05/21 [Rx] Metoprolol Succinate (ER) [Toprol XL] 25 mg PO DAILY 30 Days #30 10/05/21 [Rx] lisinopriL [Zestril] 5 mg PO DAILY 30 Days #30 tab 10/05/21 [Rx] Follow up Appointment(s)/Referral(s): Ross Foster MD [STAFF PHYSICIAN] - 1 Week None,Stated [Primary Care Provider] - 1-2 days Discharge Disposition: HOME SELF-CARE
[2021-10-05 12:48] VITALS: BP 92/46; PULSE 84
--- NOTE | 2021-10-05 13:53 | P.PN ---
Subjective The patient is a 51-year-old gentleman with a past medical history of methamphetamine abuse, heroin abuse, pulmonary embolism on Eliquis, Covid-19 ho spitalized at [facility] discharged on 08/03/21, COPD, recent diagnosis of cardiomyopathy with EF 15-20%. Patient is homeless. He states he does not follow with a algologist. We are consulted for congestive heart failure and chest pain. Presented to the hospital complaining of midsternal and left sided chest pain and some shortness of breath. He is very tearful on exam. He states this has been "going on for months". Chest pain is non-radiating. It is aggravated by palpation to the chest. Denies exertional chest pain or dyspnea on exertion. He denies any symptoms of orthopnea or PND, palpitations, lightheadedness, dizziness or syncope. He states he ran out of his medications 1 day ago. He denies tobacco use. He endorses meth use 2 months ago. Denies alcohol use. -The patient was admitted recently in 07/28/2021-August 03 2021 to [facility] with shortness of breath and he was diagnosed was PE. CTA on 07/28/2021 revealed 3 small segmental branch emboli identified in the right lung, cardiomegaly, with small right greater than left pleural effusions, groundglass changes suspect a combination of Covid pneumonia and interstitial pulmonary edema. He underwent an echo on 07/29/21 that showed an EF between 15- 20%, severe hypokinesis of the left ventricle, trace to mild mitral regurgitation, mild tricuspid regurgitation, RVSP of 30 mmHg. He was treated with IV Diuretics, stabilized and discharged on PO Lasix 40mg daily, ELiquis, lisinopril 5 mg daily, metoprolol succinate 25 mg daily. -He was recently admitted at [facility] in July 2021 for acute heart failure exacerbation, he was treated with IV Diuresis and discharged on heart failure medication regimen. It was recommended for cardiomyopathy workup to be done as an outpatient at that time. 10/05/2021 Patient seen at bedside, he is lying in bed with no acute distress. He denies any chest pain or shortness of breath. He appears euvolemic on exam. He is hemod ynamically stable. Labs reviewed. Echo revealed EF <20% PHYSICAL EXAMINATION Vitals reviewed CONSTITUTIONAL: No apparent distress. HEENT: No JVD. CHEST EXAMINATION: Lungs are clear to auscultation. No chest wall tenderness is noted on palpation or with deep breathing. HEART EXAMINATION: Regular rate and rhythm. S1, S2 heard. Systolic ejection murmur at apex ABDOMEN: Soft, nontender. Positive bowel sounds. EXTREMITIES: 2+ peripheral pulses, no lower extremity edema and no calf tenderness. NEUROLOGIC EXAMINATION: Patient is awake, alert and oriented x3. ASSESSMENT Acute heart failure with reduced ejection fraction Cardiomyopathy, unknown if ischemic vs non-ischemic at this time Valvular heart disease Pulmonary hypertension History of pulmonary embolism on Eliquis History of methamphetamine abuse History of heroin abuse PLAN From a cardiology perspective, patient is stable for discharge. Recommend current heart failure medication regimen and close follow up outpatient. Patient to follow up with Dr. Foster 10/15/21 at 4:00PM Nurse practitioner note has been reviewed by physician. Signing provider agrees with the documented findings, assessment, and plan of care. Objective - Vital Signs Vital signs: Vital Signs Temp 97.6 F 10/05/21 08:00 Pulse 84 10/05/21 12:00 Resp 17 10/05/21 12:00 BP 92/46 10/05/21 12:00 Pulse Ox 97 10/05/21 12:00 Intake & Output 10/04/21 10/05/21 10/05/21 18:59 06:59 18:59 Intake Total 480 240 Balance 480 240 Weight 76 kg 75.6 kg Intake: Oral 480 240 Other: # Voids 4 2 - Labs CBC & Chem 7: 10/04/21 07:54 10/04/21 07:54
[2021-10-05] MEDS ORDERED: FUROSEMIDE 40 MG TAB PO SCH (16:00)
== END 2021-10-05 13:34 | disposition home or self-care (01) | DRG 291 ==
LOC: EC 15:01 → 3SCARD 17:30
PROVIDERS: ADMIT Internal Medicine; ATTEND Internal Medicine
DX: I11.0 Hypertensive heart disease with heart failure (principal); I50.21 Acute systolic (congestive) heart failure; I27.20 Pulmonary hypertension, unspecified; I42.9 Cardiomyopathy, unspecified; E11.9 Type 2 diabetes mellitus without complications; J44.9 Chronic obstructive pulmonary disease, unspecified; F15.10 Other stimulant abuse, uncomplicated; F11.11 Opioid abuse, in remission; E78.5 Hyperlipidemia, unspecified; I08.1 Rheumatic disorders of both mitral and tricuspid valves; M54.9 Dorsalgia, unspecified; F41.9 Anxiety disorder, unspecified; F32.A Depression, unspecified; Z79.01 Long term (current) use of anticoagulants; Z79.899 Other long term (current) drug therapy; Z59.00 Homelessness unspecified; Z87.891 Personal history of nicotine dependence; Z86.711 Personal history of pulmonary embolism; Z86.16 Personal history of COVID-19; Z86.14 Personal history of Methicillin resistant Staphylococcus aureus infection; Z90.49 Acquired absence of other specified parts of digestive tract; Z87.19 Personal history of other diseases of the digestive system; Z86.69 Personal history of other diseases of the nervous system and sense organs; Z87.39 Personal history of other diseases of the musculoskeletal system and connective tissue; Z87.01 Personal history of pneumonia (recurrent); Z98.890 Other specified postprocedural states; Z71.6 Tobacco abuse counseling; Z71.51 Drug abuse counseling and surveillance of drug abuser; Z88.0 Allergy status to penicillin
CPT/HCPCS: 36415; 71046; 80053; 80306; 80320; 83690; 83735; 83880; 84484; 85025; 85379; 85610; 85730; 93005; 93308; 96374; 96375; 99285

== ENCOUNTER 2021-10-09 18:21 | Observation (INO) | payer OTHER ==
[2021-10-09] MEDS ORDERED: SODIUM CHLORIDE 0.9% 1,000 ML IV STA (19:02)
[2021-10-09] MEDS ORDERED: MORPHINE SULFATE 4 MG/ML SYRINGE IVP STA ×2 (19:02→20:52)
[2021-10-09] MEDS ORDERED: ASPIRIN 81 MG PO STA (19:02)
[2021-10-09 19:15] LABS: ALT 33 U/L (4-49); AST 49 U/L (17-59); African American GFR (CKD) >90 (>60 ml/min/1.73 sqM); Albumin 4.1 g/dL (3.5-5.0); Alkaline Phosphatase 88 U/L (38-126); Anion Gap 10 mmol/L; Blood Urea Nitrogen 20 mg/dL (9-20); Calcium 9.5 mg/dL (8.4-10.2); Carbon Dioxide 21 mmol/L (22-30); Chloride 106 mmol/L (98-107); Glucose 153 mg/dL (74-99); Magnesium 1.8 mg/dL (1.6-2.3); Non-African American GFR(CKD) >90 (>60 ml/min/1.73 sqM); Potassium 4.9 mmol/L (3.5-5.1); Sodium 137 mmol/L (137-145); Total Bilirubin 0.8 mg/dL (0.2-1.3); Total Protein 8.3 g/dL (6.3-8.2)
--- NOTE | 2021-10-09 19:17 | XR ---
EXAMINATION TYPE: XR chest 2V DATE OF EXAM: 10/09/2021 COMPARISON: 10/03/2021 HISTORY: Chest pain TECHNIQUE: 2 view FINDINGS: There is no heart failure nor confluent pneumonic infiltrate. Costophrenic angles are clear . There are chest leads. IMPRESSION: No active cardiopulmonary disease. There is clearing of the pulmonary congestion compared to old exam.
[2021-10-09 19:22] LABS: Anisocytosis Slight; Basophils # (A) 0.1 k/uL (0-0.2); Basophils % (A) 1 %; Eosinophils # (A) 0.2 k/uL (0-0.7); Eosinophils % (A) 2 %; HCT 51.7 % (39.0-53.0); HGB 16.3 gm/dL (13.0-17.5); Hypochromasia Moderate; Lymphocytes # (A) 1.3 k/uL (1.0-4.8); Lymphocytes % (A) 11 %; MCH 27.1 pg (25.0-35.0); MCHC 31.5 g/dL (31.0-37.0); MCV 86.1 fL (80.0-100.0); Mean Platelet Volume 9.6; Monocytes # (A) 0.9 k/uL (0-1.0); Monocytes % (A) 8 %; Neutrophils # (A) 9.1 k/uL (1.3-7.7); Neutrophils % (A) 76 %; Platelet Count 215 k/uL (150-450); RDW 16.2 % (11.5-15.5); WBC 11.9 k/uL (3.8-10.6)
[2021-10-09 19:30] LABS: INR 1.3 (<1.2); Partial Thromboplastin Time 28.9 sec (22.0-30.0); Prothrombin Time 13.5 sec (9.0-12.0)
--- NOTE | 2021-10-09 20:26 | CT ---
EXAMINATION TYPE: CT chest angio for PE DATE OF EXAM: 10/09/2021 COMPARISON: 08/28/2021 HISTORY: Chest pain. CT DLP: 273.8 mGycm Automated exposure control for dose reduction was used. CONTRAST: Performed with IV Contrast, patient injected with 80ml mL of Isovue 370. There are Three-D postprocessed images. The lungs are clear of consolidation. There is no evidence of a pulmonary mass. There is no pleural e ffusion. Heart size is fairly normal. There is no pericardial effusion. Upper abdominal soft tissues are intact. There are no hilar masses. There is no mediastinal adenopathy. Thoracic aorta is intact. There is no aneurysm or dissection. There is normal contrast opacification of the pulmonary arteries. There are n o filling defects. IMPRESSION: Negative CT angiogram of the chest. No evidence of pulmonary embolism. There is clearing of the pleur al effusions and basilar pulmonary infiltrates compared to old exam.
[2021-10-09] MEDS ORDERED: NALOXONE 0.4 MG/ML 1 ML VIAL IV PRN (21:36)
[2021-10-09] MEDS ORDERED: ONDANSETRON 4 MG/2 ML VIAL IVP PRN (21:36)
--- NOTE | 2021-10-09 21:40 | ED ---
General Adult HPI - General Chief complaint: Chest Pain Stated complaint: QUINN/chest pain Time Seen by Provider: 10/09/21 18:39 Source: patient, RN notes reviewed, old records reviewed Mode of arrival: ambulatory Limitations: no limitations - History of Present Illness Initial comments: Patient is a 51-year-old male with past medical history remarkable for PE on eliquis,, methamphetamine use who presents emergency Department complaining of chronic chest pain. States it has been ongoing for weeks to months since he caught Covid multiple months ago. This is occasional shortness of breath. States he has not been taking his blood thinner medication for the last states he ran out of it. Describes the pain as a tightness across bilateral chest. It is unchanged from his typical pain that he expenses on daily basis. Denies any nausea, vomiting, abdominal pain, lightheadedness, weakness. Has no other acute complaints at this time. Is concerned for this chest pain at this time. Patient states he is homeless. - Related Data Previous Rx's Medication Instructions Recorded Spironolactone [Aldactone] 25 mg PO DAILY 30 Days #30 tab 08/31/21 Apixaban [Eliquis] 5 mg PO BID 30 Days #60 tab 10/05/21 Furosemide [Lasix] 20 mg PO BID@0900,1600 30 Days #60 10/05/21 tab Metoprolol Succinate (ER) [Toprol 25 mg PO DAILY 30 Days #30 10/05/21 XL] lisinopriL [Zestril] 5 mg PO DAILY 30 Days #30 tab 10/05/21 Allergies Allergy/AdvReac Type Severity Reaction Status Date / Time Penicillins Allergy Rash/Hives Verified 10/09/21 19:32 Review of Systems ROS Statement: Those systems with pertinent positive or pertinent negative responses have been documented in the HPI. Review of Systems: CONST: Denies fever EYES: Denies blurry vision ENT: Denies nasal congestion C/V: Endorses chest pain RESP: Denies shortness of breath GI: Denies abdominal pain : Denies dysuria SKIN: Denies rash. MSK: Denies joint pain. NEURO: Denies headache ROS Other: All systems not noted in ROS Statement are negative. Past Medical History Past Medical History: Pulmonary Embolus (PE) Additional Past Medical History / Comment(s): back pain, previous covid, borderline DM History of Any Multi-Drug Resistant Organisms: MRSA Date of last positivie culture/infection: 2014 MDRO Source:: stomach Past Surgical History: Appendectomy Additional Past Surgical History / Comment(s): Ear surgery, skull sx Past Psychological History: Depression Smoking Status: Former smoker Past Alcohol Use History: None Reported Past Drug Use History: Methamphetamine General Exam - General Exam Comments Initial Comments: General: Appears in mild distress secondary to chest discomfort. HEAD: Normal with no signs of head trauma. EYES: PERRLA, EOMI, conjunctiva normal, no discharge. ENT: Hearing grossly intact, normal oropharynx. RESPIRATORY: Clear breath sounds bilaterally. No wheezes, rales, or rhonchi. C/V: Mildly tachycardic with a regular rhythm. S1 and S2 auscultated. Peripheral pulses 2+ intact throughout. No peripheral edema. ABD: Abd is soft, nontender, nondistended EXT: Normal range of motion, no obvious deformity SKIN: No rashes or lesions observed on exposed skin. NEURO: Alert and oriented 4. Limitations: no limitations Course Vital Signs 10/09/21 10/09/21 10/09/21 18:30 18:44 20:30 Temperature 98.1 F 98.0 F Pulse Rate 117 H 89 Respiratory 24 22 20 Rate Blood Pressure 139/85 120/82 O2 Sat by Pulse 98 98 Oximetry 10/09/21 10/09/21 21:30 22:30 Temperature 98.2 F 98.2 F Pulse Rate 90 92 Respiratory 18 18 Rate Blood Pressure 118/78 116/78 O2 Sat by Pulse 98 97 Oximetry Medical Decision Making - Medical Decision Making Based on the patient's presentation and physical exam, he is presenting with chronic atypical chest pain. Is currently tachycardic with this atypical chest pain with known history of PE is somewhat noncompliant with his anticoagulation. Therefore we will obtain a CT PE in addition to cardiac workup. Patient will be given morphine for chest pain. Also receive an aspirin. He was in agreement this plan. EKG showed no acute ischemic process. Unchanged from prior EKGs. Chest x-ray revealed no acute cardio pulmonary process. CT angiogram for pulmonary embolism revealed no evidence of pulmonary embolism. Laboratory studies are remarkable for a negative troponin. Remainder of the labs are unremarkable. On reevaluation, patient states the morphine did resolve his chest pain. He states he is homeless, also that his chest pain is beginning to return. I will redosed him with morphine. Patient's heart score is 3-4. Due to his cardiac history, as well as his intermittent chest pain, he'll be admitted to observation telemetry. Patient was in agreement this plan. I spoke with the admitting team under Dr. Sosa who was in agreement this plan. Cardiology was consulted to evaluate the morning. - Lab Data Result diagrams: 10/09/21 18:58 10/09/21 18:58 Lab Results 10/09/21 10/09/21 10/09/21 Range/Units 18:58 18:58 18:58 WBC 11.9 H (3.8-10.6) k/uL RBC 6.00 H (4.30-5.90) m/uL Hgb 16.3 (13.0-17.5) gm/dL Hct 51.7 (39.0-53.0) % MCV 86.1 (80.0-100.0) fL MCH 27.1 (25.0-35.0) pg MCHC 31.5 (31.0-37.0) g/dL RDW 16.2 H (11.5-15.5) % Plt Count 215 (150-450) k/uL MPV 9.6 Neutrophils % 76 % Lymphocytes % 11 % Monocytes % 8 % Eosinophils % 2 % Basophils % 1 % Neutrophils # 9.1 H (1.3-7.7) k/uL Lymphocytes # 1.3 (1.0-4.8) k/uL Monocytes # 0.9 (0-1.0) k/uL Eosinophils # 0.2 (0-0.7) k/uL Basophils # 0.1 (0-0.2) k/uL Hypochromasia Moderate Anisocytosis Slight PT 13.5 H (9.0-12.0) sec INR 1.3 H (<1.2) APTT 28.9 (22.0-30.0) sec Sodium 137 (137-145) mmol/L Potassium 4.9 (3.5-5.1) mmol/L Chloride 106 (98-107) mmol/L Carbon Dioxide 21 L (22-30) mmol/L Anion Gap 10 mmol/L BUN 20 (9-20) mg/dL Creatinine 0.79 (0.66-1.25) mg/dL Est GFR (CKD-EPI)AfAm >90 (>60 ml/min/1.73 sqM) Est GFR (CKD-EPI)NonAf >90 (>60 ml/min/1.73 sqM) Glucose 153 H (74-99) mg/dL Calcium 9.5 (8.4-10.2) mg/dL Magnesium 1.8 (1.6-2.3) mg/dL Total Bilirubin 0.8 (0.2-1.3) mg/dL AST 49 (17-59) U/L ALT 33 (4-49) U/L Alkaline Phosphatase 88 (38-126) U/L Troponin I (0.000-0.034) ng/mL Total Protein 8.3 H (6.3-8.2) g/dL Albumin 4.1 (3.5-5.0) g/dL 10/09/21 Range/Units 18:58 WBC (3.8-10.6) k/uL RBC (4.30-5.90) m/uL Hgb (13.0-17.5) gm/dL Hct (39.0-53.0) % MCV (80.0-100.0) fL MCH (25.0-35.0) pg MCHC (31.0-37.0) g/dL RDW (11.5-15.5) % Plt Count (150-450) k/uL MPV Neutrophils % % Lymphocytes % % Monocytes % % Eosinophils % % Basophils % % Neutrophils # (1.3-7.7) k/uL Lymphocytes # (1.0-4.8) k/uL Monocytes # (0-1.0) k/uL Eosinophils # (0-0.7) k/uL Basophils # (0-0.2) k/uL Hypochromasia Anisocytosis PT (9.0-12.0) sec INR (<1.2) APTT (22.0-30.0) sec Sodium (137-145) mmol/L Potassium (3.5-5.1) mmol/L Chloride (98-107) mmol/L Carbon Dioxide (22-30) mmol/L Anion Gap mmol/L BUN (9-20) mg/dL Creatinine (0.66-1.25) mg/dL Est GFR (CKD-EPI)AfAm (>60 ml/min/1.73 sqM) Est GFR (CKD-EPI)NonAf (>60 ml/min/1.73 sqM) Glucose (74-99) mg/dL Calcium (8.4-10.2) mg/dL Magnesium (1.6-2.3) mg/dL Total Bilirubin (0.2-1.3) mg/dL AST (17-59) U/L ALT (4-49) U/L Alkaline Phosphatase (38-126) U/L Troponin I <0.012 (0.000-0.034) ng/mL Total Protein (6.3-8.2) g/dL Albumin (3.5-5.0) g/dL - EKG Data -: EKG Interpreted by Me EKG Comments: 12-lead Electrocardiogram Interpretation Note EKG was reviewed and interpreted by myself. 12-lead ECG performed at 1837 is interpreted by me as revealing sinus tachycardia at a rate of 105 beats per minute. [place] is normal. AL interval is 170 ms, QRS duration is 86 ms, QTc is 475 ms.. There were no ST or T wave abnormalities to suggest myocardial ischemia or injury. R wave progression across the precordium was satisfactory. By my interpretation this EKG is non-diagnostic for acute ischemia. No change when compared with prior EKGs. Disposition Clinical Impression: Atypical chest pain, History of pulmonary embolism Disposition: ADMITTED IP TO THIS HOSP Condition: Stable
[2021-10-09] MEDS: APIXABAN 5 MG TAB PO SCH (22:52)
--- NOTE | 2021-10-10 01:13 | P.HPIM ---
History of Present Illness H&P Date: 10/09/21 The patient is a 51-year-old male with a PMH of systolic CHF EF 15-20%, history of PE on Eliquis who presents to the emergency room with complaints of chest pain. Patient reports 7 out of 10 diffuse chest discomfort, nonexertional, with no alleviating or exacerbating features, nonpleuritic, ongoing for the past several days. Also reports chronic dyspnea on exertion with decreased exercise tolerance. At time of interview, the patient reports improvement in his pain, currently at a 3 out of 10. Reports a long-standing history of substance abuse including methamphetamine but notes that he has not used any illicit substances over the past few weeks. Denied fever, chills, cough, nausea, vomiting, abdominal pain, diarrhea. EKG in the emergency room revealed sinus tachycardia at 105 bpm with LVH and flattened T waves in V5 and V6. Chest CTA was negative for PE. Laboratory evaluation revealed a troponin of less than 0.012 with WBC count 11.9, troponin less than 0.012, and glucose 153. Review of systems: Pertinent positives and negatives as discussed in HPI, a complete review of syst ems was performed and all other systems are negative. Physical examination: General: non toxic, no distress, appears at stated age, normal weight Derm: no unusual rashes/lesions no unusual ecchymoses, warm, dry Head: atraumatic, normocephalic, symmetric Eyes: EOMI, no lid lag, anicteric sclera, pupils equal round reactive to light ENT: Nose and ears atraumatic, no thrush, no pharyngeal erythema Neck: No thyromegaly, no cervical lymphadenopathy, trachea midline, supple Mouth: no lip lesion, mucus membranes moist Cardiovascular: S1S2 reg, no murmur, positive posterior tibial pulse bilateral, no edema, capillary refill less than 2 seconds Lungs: CTA bilateral, no rhonchi, no rales , no accessory muscle use Abdominal: soft, nontender to palpation, no guarding, no appreciable organomegaly, normal bowel sounds Ext: no gross muscle atrophy, muscle strength 5 out of 5 in all 4 extremities grossly, no contractures, Neuro: CN II-XI grossly intact, light touch intact all 4 extremities, finger to nose within normal limits, Psych: Alert, oriented, appropriate affect Assessment/plan Atypical chest pain -Cardiology consult -Trend troponin -Cardiac monitoring Chronic conditions: Chronic systolic CHF, history of PE -C/w home meds DVT prophylaxis -Eliquis The patient is admitted with an anticipated less than 2 midnight stay for evaluation of chest pain CODE STATUS: Full Code Discussed with: Patient Anticipated discharge date: in am Anticipated discharge place: Home Past Medical History Past Medical History: Pulmonary Embolus (PE) Additional Past Medical History / Comment(s): back pain, previous covid, borderline DM History of Any Multi-Drug Resistant Organisms: MRSA Date of last positivie culture/infection: 2014 MDRO Source:: stomach Past Surgical History: Appendectomy Additional Past Surgical History / Comment(s): Ear surgery, skull sx Past Psychological History: Depression Smoking Status: Former smoker Past Alcohol Use History: None Reported Past Drug Use History: Methamphetamine Additional Drug Use History / Comment(s): states he hasn't done Meth since getting, "SUDARSHAN" referring to COVID in June of 2021. Medications and Allergies Home Medications Medication Instructions Recorded Confirmed Type Spironolactone [Aldactone] 25 mg PO DAILY 30 Days #30 tab 08/31/21 10/09/21 Rx Apixaban [Eliquis] 5 mg PO BID 30 Days #60 tab 10/05/21 10/09/21 Rx Furosemide [Lasix] 20 mg PO BID@0900,1600 30 Days #60 10/05/21 10/09/21 Rx tab Metoprolol Succinate (ER) [Toprol 25 mg PO DAILY 30 Days #30 10/05/21 10/09/21 Rx XL] lisinopriL [Zestril] 5 mg PO DAILY 30 Days #30 tab 10/05/21 10/09/21 Rx Allergies Allergy/AdvReac Type Severity Reaction Status Date / Time Penicillins Allergy Rash/Hives Verified 10/09/21 19:32 Physical Exam Vitals: Vital Signs Temp Pulse Pulse Resp BP BP Pulse Ox 10/09/21 22:58 97.9 F 87 14 125/87 96 10/09/21 22:30 98.2 F 92 18 116/78 97 10/09/21 21:30 98.2 F 90 18 118/78 98 10/09/21 20:30 98.0 F 89 20 120/82 98 10/09/21 18:44 22 10/09/21 18:30 98.1 F 117 H 24 139/85 98 Intake and Output 10/09/21 10/09/21 10/10/21 14:59 22:59 07:59 Other: Weight 79.379 kg Results CBC & Chem 7: 10/09/21 18:58 10/09/21 18:58 Labs: Abnormal Lab Results - Last 24 Hours (Table) 10/09/21 10/09/21 10/09/21 Range/Units 18:58 18:58 18:58 WBC 11.9 H (3.8-10.6) k/uL RBC 6.00 H (4.30-5.90) m/uL RDW 16.2 H (11.5-15.5) % Neutrophils # 9.1 H (1.3-7.7) k/uL PT 13.5 H (9.0-12.0) sec INR 1.3 H (<1.2) Carbon Dioxide 21 L (22-30) mmol/L Glucose 153 H (74-99) mg/dL Total Protein 8.3 H (6.3-8.2) g/dL Thrombosis Risk Factor Assmnt - Choose All That Apply Each Factor Represents 1 point: Age 41-60 years, Obesity (BMI >25) Thrombosis Risk Factor Assessment Total Risk Factor Score: 2 Thrombosis Risk Factor Assessment Level: Low Risk
[2021-10-10] MEDS: MORPHINE SULFATE 4 MG/ML SYRINGE IV PRN ×4 (01:41→23:57)
[2021-10-10 07:04] LABS: Basophils # (A) 0.1 k/uL (0-0.2); Basophils % (A) 1 %; Eosinophils # (A) 0.4 k/uL (0-0.7); Eosinophils % (A) 3 %; HCT 48.2 % (39.0-53.0); HGB 14.8 gm/dL (13.0-17.5); Hypochromasia Moderate; Lymphocytes # (A) 2.1 k/uL (1.0-4.8); Lymphocytes % (A) 18 %; MCH 26.4 pg (25.0-35.0); MCHC 30.7 g/dL (31.0-37.0); MCV 85.8 fL (80.0-100.0); Monocytes # (A) 1.1 k/uL (0-1.0); Monocytes % (A) 9 %; Neutrophils # (A) 8.1 k/uL (1.3-7.7); Neutrophils % (A) 67 %; Platelet Count 331 k/uL (150-450); RBC 5.61 m/uL (4.30-5.90); RDW 15.9 % (11.5-15.5)
[2021-10-10 07:34] LABS: African American GFR (CKD) >90 (>60 ml/min/1.73 sqM); Anion Gap 8 mmol/L; Blood Urea Nitrogen 21 mg/dL (9-20); Carbon Dioxide 22 mmol/L (22-30); Chloride 107 mmol/L (98-107); Glucose 124 mg/dL (74-99); Non-African American GFR(CKD) >90 (>60 ml/min/1.73 sqM); Potassium 4.8 mmol/L (3.5-5.1); Sodium 137 mmol/L (137-145)
[2021-10-10] MEDS: FUROSEMIDE 20 MG TAB PO SCH ×2 (07:58→17:18)
[2021-10-10] MEDS: lisinopriL 5 MG TAB PO SCH (07:58)
[2021-10-10] MEDS: APIXABAN 5 MG TAB PO SCH ×2 (07:59→20:11)
[2021-10-10] MEDS: METOPROLOL SUCCINATE (ER) 25 MG TAB.ER.24H PO SCH (07:59)
[2021-10-10] MEDS: SPIRONOLACTONE 25 MG TAB PO SCH (07:59)
--- NOTE | 2021-10-10 11:22 | P.CRDCN ---
History of Present Illness History of present illness: 51-year-old gentleman with history of cardiomyopathy with severe LV dysfunction history of multiple drug use including amphetamine and opiates history of coronary virus infection recurrent hospitalizations in fact was in the hospital just last week comes in complaining of chest pain. His chest discomfort is mild intensity precordial sharp unrelated to exertion and not associated with taylor phoresis. EKG shows sinus tachycardia with changes of left ventricular hypertrophy 3 sets of cardiac enzymes have been negative. There was a thought about doing a cardiac catheterization on him by Dr. Foster in the past. Since patient is not keeping outpatient follow-ups I think we are better off doing the cardiac catheterization on this admission. He is an outpatient follow-up on the . Hopefully the cath can be done on this admission tomorrow. Past medical history is significant for cardiomyopathy and congestive heart failure Constitutional: Denies chills. Denies fever. Eyes: Denies blurred vision. Denies pain. Ears, nose, mouth and throat: Denies headache. Denies sore throat. Cardiovascular: Significant for chest pain. Denies shortness of breath. Respiratory: Denies cough. Gastrointestinal: Denies abdominal pain. Denies diarrhea. Denies nausea. Denies vomiting. Musculoskeletal: Denies myalgias. Integumentary: Denies pruritus. Denies rash. Neurological: Denies numbness. Denies weakness. Psychiatric: Denies anxiety. Denies depression. Endocrine: Denies fatigue. Denies weight change. Genitourinary: Denies burning, hematuria, frequency of urination. Hematological: No anemia or excess bleeding. General: The patient is awake and alert, in no distress, and does not appear acutely ill. Skin: Skin is warm and dry and no rashes or lesions are noted. Eye: Pupils are equal, round and reactive to light, extra-ocular movements are intact; there is normal conjunctiva bilaterally. Ears, nose, mouth and throat: There are moist mucous membranes and no oral lesions. Neck: The neck is supple, there is no tenderness or JVD. Cardiovascular: There is a regular rate and rhythm. No murmur, rub or gallop is appreciated. Respiratory: Lungs are clear to auscultation, respirations are non-labored, breath sounds are equal. Gastrointestinal: Soft, non-distended, non-tender abdomen without masses or organomegaly noted. There is no rebound or guarding present. Bowel sounds are unremarkable. Back: There is no tenderness to palpation in the midline. There is no obvious deformity. Musculoskeletal: Normal ROM, no tenderness, There is no pedal edema. There is no calf tenderness or swelling. Extremities: No edema. Vascular: Femoral pulse is normal. Posterior tibial pulses are normal .Dorsalis pedis is palpable. Neurological: CN II-XII intact. There are no obvious motor or sensory deficits. Speech is normal. Psychiatric: Cooperative, appropriate mood & affect, normal judgment. Assessment and plan: Precordial chest pain Cardiomyopathy with congestive heart failure History of drug abuse Continue current medical therapy reviewed the echo findings labs EKGs consider cardiac catheterization tomorrow Past Medical History Past Medical History: Pulmonary Embolus (PE) Additional Past Medical History / Comment(s): back pain, previous covid, borderline DM History of Any Multi-Drug Resistant Organisms: MRSA Date of last positivie culture/infection: 2014 MDRO Source:: stomach Past Surgical History: Appendectomy Additional Past Surgical History / Comment(s): Ear surgery, skull sx Past Psychological History: Depression Smoking Status: Former smoker Past Alcohol Use History: None Reported Past Drug Use History: Methamphetamine Additional Drug Use History / Comment(s): states he hasn't done Meth since getting, "SUDARSHAN" referring to COVID in June of 2021. Medications and Allergies Home Medications Medication Instructions Recorded Confirmed Type Spironolactone [Aldactone] 25 mg PO DAILY 30 Days #30 tab 08/31/21 10/09/21 Rx Apixaban [Eliquis] 5 mg PO BID 30 Days #60 tab 10/05/21 10/09/21 Rx Furosemide [Lasix] 20 mg PO BID@0900,1600 30 Days #60 10/05/21 10/09/21 Rx tab Metoprolol Succinate (ER) [Toprol 25 mg PO DAILY 30 Days #30 10/05/21 10/09/21 Rx XL] lisinopriL [Zestril] 5 mg PO DAILY 30 Days #30 tab 10/05/21 10/09/21 Rx Allergies Allergy/AdvReac Type Severity Reaction Status Date / Time Penicillins Allergy Rash/Hives Verified 10/09/21 19:32 Physical Exam Vitals: Vital Signs Temp Pulse Pulse Resp BP BP BP 10/10/21 07:00 97.4 F L 87 16 111/78 10/10/21 01:00 97.7 F 83 16 118/76 10/09/21 22:58 97.9 F 87 14 125/87 10/09/21 22:30 98.2 F 92 18 116/78 10/09/21 21:30 98.2 F 90 18 118/78 10/09/21 20:30 98.0 F 89 20 120/82 10/09/21 18:44 22 10/09/21 18:30 98.1 F 117 H 24 139/85 Pulse Ox 10/10/21 07:00 96 10/10/21 01:00 98 10/09/21 22:58 96 10/09/21 22:30 97 10/09/21 21:30 98 10/09/21 20:30 98 10/09/21 18:44 10/09/21 18:30 98 Intake and Output 10/09/21 10/10/21 10/10/21 21:59 06:59 14:59 Other: # Voids Weight Results 10/10/21 06:33 10/10/21 06:33 Cardiac Enzymes 10/09/21 10/09/21 10/10/21 Range/Units 18:58 18:58 06:33 AST 49 (17-59) U/L Troponin I <0.012 <0.012 (0.000-0.034) ng/mL 10/10/21 Range/Units 09:36 AST (17-59) U/L Troponin I <0.012 (0.000-0.034) ng/mL Coagulation 10/09/21 Range/Units 18:58 PT 13.5 H (9.0-12.0) sec APTT 28.9 (22.0-30.0) sec CBC 10/09/21 10/10/21 Range/Units 18:58 06:33 WBC 11.9 H 12.0 H (3.8-10.6) k/uL RBC 6.00 H 5.61 (4.30-5.90) m/uL Hgb 16.3 14.8 (13.0-17.5) gm/dL Hct 51.7 48.2 (39.0-53.0) % Plt Count 215 331 (150-450) k/uL Comprehensive Metabolic Panel 10/09/21 10/10/21 Range/Units 18:58 06:33 Sodium 137 137 (137-145) mmol/L Potassium 4.9 4.8 (3.5-5.1) mmol/L Chloride 106 107 (98-107) mmol/L Carbon Dioxide 21 L 22 (22-30) mmol/L BUN 20 21 H (9-20) mg/dL Creatinine 0.79 0.85 (0.66-1.25) mg/dL Glucose 153 H 124 H (74-99) mg/dL Calcium 9.5 9.0 (8.4-10.2) mg/dL AST 49 (17-59) U/L ALT 33 (4-49) U/L Alkaline Phosphatase 88 (38-126) U/L Total Protein 8.3 H (6.3-8.2) g/dL Albumin 4.1 (3.5-5.0) g/dL Current Medications Generic Name Dose Route Start Last Admin Trade Name Freq PRN Reason Stop Dose Admin Apixaban 5 mg 10/09/21 21:45 10/10/21 07:59 Apixaban 5 Mg Tab PO 5 mg BID [facility] Administration Protocol Furosemide 20 mg 10/10/21 09:00 10/10/21 07:58 Furosemide 20 Mg Tab PO 20 mg BID@0900,1600 KOURTNEY Administration Lisinopril 5 mg 10/10/21 09:00 10/10/21 07:58 Lisinopril 5 Mg Tab PO 5 mg DAILY KOURTNEY Administration Metoprolol Succinate 25 mg 10/10/21 09:00 10/10/21 07:59 Metoprolol Succinate (Er) 25 Mg Tab.Er.24h PO 25 mg DAILY KOURTNEY Administration Morphine Sulfate 4 mg 10/09/21 21:36 10/10/21 10:44 Morphine Sulfate 4 Mg/Ml Syringe IV 4 mg Q4HR PRN Administration Severe Pain Naloxone HCl 0.2 mg 10/09/21 21:36 Naloxone 0.4 Mg/Ml 1 Ml Vial IV Q2M PRN Opioid Reversal Ondansetron HCl 4 mg 10/09/21 21:36 Ondansetron 4 Mg/2 Ml Vial IVP Q8HR PRN Nausea And Vomiting Spironolactone 25 mg 10/10/21 09:00 10/10/21 07:59 Spironolactone 25 Mg Tab PO 25 mg DAILY KOURTNEY Administration Intake and Output 10/09/21 10/10/21 10/10/21 21:59 06:59 14:59 Other: # Voids Weight 10/10/21 06:33 10/10/21 06:33
--- NOTE | 2021-10-10 12:31 | P.PN ---
Subjective Progress Note Date: 10/10/21 Principal diagnosis: chest pain Seen by cardiology, his pain is resolved. No sob currently. No fevers, no n/v. Objective - Vital Signs Vital signs: Vital Signs Temp 97.4 F L 10/10/21 07:00 Pulse 87 10/10/21 07:00 Resp 16 10/10/21 07:00 BP 111/78 10/10/21 07:00 Pulse Ox 96 10/10/21 07:00 Intake & Output 10/09/21 10/10/21 10/10/21 17:59 06:59 18:59 Weight Other: # Voids - Exam Constitutional: No acute distress, conversant, pleasant Eyes:Anicteric sclerae, moist conjunctiva, no lid-lag, PERRLA, ENMT: Oropharynx clear, no erythema, exudates Neck: Supple, FROM, no masses, or JVD, No carotid bruits, No thyromegaly Lungs: Clear to auscultation, Clear to percussion, Normal respiratory effort, no accessory muscle use Cardiovascular: Heart regular in rate and rhythm, No murmurs, gallops, or rubs, No peripheral edema Abdominal: Soft, Nontender, no guarding, rebound or rigidity, Normoactive bowel sounds, No hepatomegaly, No splenomegaly, No palpable mass Skin: Normal temperature, tone, texture, turgor, no induration, No subcutaneous nodules, No rash, lesions, No ulcers Extremities: No digital cyanosis, No clubbing, Pedal pulses intact and symmetrical, Radial pulses intact and symmetrical, No calf tenderness Psychiatric: Alert and oriented to person, place and time, appropriate affect, intact judgement Neuro: Muscles Strength 5/5 in all 4 extremities, Sensation to light touch grossly present throughout, Cranial nerves II-XII grossly intact, no focal sensory deficits - Labs CBC & Chem 7: 10/10/21 06:33 10/10/21 06:33 Labs: Abnormal Lab Results - Last 24 Hours (Table) 10/09/21 10/09/21 10/09/21 Range/Units 18:58 18:58 18:58 WBC 11.9 H (3.8-10.6) k/uL RBC 6.00 H (4.30-5.90) m/uL MCHC (31.0-37.0) g/dL RDW 16.2 H (11.5-15.5) % Neutrophils # 9.1 H (1.3-7.7) k/uL Monocytes # (0-1.0) k/uL PT 13.5 H (9.0-12.0) sec INR 1.3 H (<1.2) Carbon Dioxide 21 L (22-30) mmol/L BUN (9-20) mg/dL Glucose 153 H (74-99) mg/dL Total Protein 8.3 H (6.3-8.2) g/dL 10/10/21 10/10/21 Range/Units 06:33 06:33 WBC 12.0 H (3.8-10.6) k/uL RBC (4.30-5.90) m/uL MCHC 30.7 L (31.0-37.0) g/dL RDW 15.9 H (11.5-15.5) % Neutrophils # 8.1 H (1.3-7.7) k/uL Monocytes # 1.1 H (0-1.0) k/uL PT (9.0-12.0) sec INR (<1.2) Carbon Dioxide (22-30) mmol/L BUN 21 H (9-20) mg/dL Glucose 124 H (74-99) mg/dL Total Protein (6.3-8.2) g/dL Assessment and Plan Plan: Atypical chest pain -Seen by cardiology, will plan for heart cath in am as he is not compliant with appointments. It was planned as outpatient. -Troponin negative, no MT. -Cardiac monitoring Chronic conditions: Chronic systolic CHF, history of PE -C/w home meds DVT prophylaxis -Eliquis CODE STATUS: Full Code Discussed with: Patient Anticipated discharge date: in am Anticipated discharge place: Home
[2021-10-11] MEDS: MORPHINE SULFATE 4 MG/ML SYRINGE IV PRN ×3 (04:11→10:31)
[2021-10-11] MEDS: APIXABAN 5 MG TAB PO SCH (09:09)
[2021-10-11] MEDS ORDERED: NITROGLYCERIN SL TABS 0.4 MG TAB SUBLINGUAL PRN (09:10)
[2021-10-11] MEDS ORDERED: ALPRAZolam 0.25 MG TAB PO PRN (09:10)
[2021-10-11] MEDS ORDERED: ATORVASTATIN 80 MG TAB PO STA (09:10)
[2021-10-11] MEDS ORDERED: ALPRAZolam 0.5 MG TAB PO PRN (09:10)
[2021-10-11] MEDS ORDERED: ASPIRIN 325 MG TAB PO STA (09:10)
[2021-10-11] MEDS: FUROSEMIDE 20 MG TAB PO SCH ×2 (09:11→17:11)
[2021-10-11] MEDS: lisinopriL 5 MG TAB PO SCH (09:11)
[2021-10-11] MEDS: METOPROLOL SUCCINATE (ER) 25 MG TAB.ER.24H PO SCH (09:11)
[2021-10-11] MEDS: SPIRONOLACTONE 25 MG TAB PO SCH (09:11)
--- NOTE | 2021-10-11 11:12 | P.PN ---
Subjective Progress Note Date: 10/11/21 HISTORY OF PRESENT ILLNESS: 51-year-old gentleman with history of cardiomyopathy with severe LV dysfunction history of multiple drug use including amphetamine and opiates history of coronary virus infection recurrent hospitalizations in fact was in the hospital just last week comes in complaining of chest pain. His chest discomfort is mild intensity precordial sharp unrelated to exertion and not associated with diaphoresis. EKG shows sinus tachycardia with changes of left ventricular hypertrophy 3 sets of cardiac enzymes have been negative. There was a thought about doing a cardiac catheterization on him by Dr. Foster in the past. Since patient is not keeping outpatient follow-ups I think we are better off doing the cardiac catheterization on this admission. He is an outpatient follow-up on the . Hopefully the cath can be done on this admission tomorrow. Past medical history is significant for cardiomyopathy and congestive heart failure 10/11/2021 Patient examined this morning at the bedside. Patient denies chest pain or pressure. He denies shortness of breath. Vital signs are stable. PHYSICAL EXAM: VITAL SIGNS: Reviewed. GENERAL: Well-developed in no acute distress. NECK: Supple. No JVD or thyromegaly LUNGS: Respirations even and unlabored. Lungs essentially clear to auscultation bilaterally. HEART: Regular rate and rhythm. S1 and S2 heard. EXTREMITIES: Normal range of motion. No clubbing or cyanosis. Peripheral pulses intact. No lower extremity edema ASSESSMENT: Chest pain Cardiomyopathy, EF less than 20%, etiology unclear History of drug abuse History of PE History of medication noncompliance PLAN: Continue current cardiac medications Hold Eliquis Patient to undergo cardiac catheterization today with Dr. Patel Further recommendations pending patient course Nurse practitioner note has been reviewed by physician. Signing provider agrees with the documented findings, assessment, and plan of care. Objective - Vital Signs Vital signs: Vital Signs Temp 97.7 F 10/11/21 07:00 Pulse 76 10/11/21 09:12 Resp 18 10/11/21 07:00 BP 101/65 10/11/21 09:12 Pulse Ox 99 10/11/21 07:00 Intake & Output 10/10/21 10/11/21 10/11/21 18:59 06:59 18:59 Intake Total 356 Balance 356 Intake: Oral 356 Other: # Voids 3 2 - Labs CBC & Chem 7: 10/10/21 06:33 10/10/21 06:33
[2021-10-11] MEDS ORDERED: IV FLUID CONTINUATION 1,000 ML IV ONE (12:35)
[2021-10-11] MEDS ORDERED: MIDAZOLAM 2 MG/2 ML VIAL IV ONE (13:03)
[2021-10-11] MEDS ORDERED: LIDOCAINE 1% INJ 10MG/ML (20 ML MDV) SQ ONE (13:03)
[2021-10-11] MEDS: VERAPAMIL SYRINGE (5 MG/10 ML) INTRAARTER ONE ×2 (13:04→13:14)
[2021-10-11] MEDS ORDERED: HEPARIN SODIUM 1,000 UN/ML (10ML VL) IV ONE (13:07)
[2021-10-11] MEDS ORDERED: IOPAMIDOL-370 125ML BTL INJ ONE (13:14)
[2021-10-11] MEDS ORDERED: RX INFO: IV CONTRAST WAS GIVEN 1 EACH MISC MISCELLANE PRN (13:19)
--- NOTE | 2021-10-11 13:22 | P.PCN ---
Date of Procedure: 10/11/21 Operative Findings: CARDIAC CATHETERIZATION PERFORMING PHYSICIAN: Ross Foster MD, RPVI PROCEDURE PERFORMED: 1. Selective right and left coronary angiogram 2. Left heart catheterization INDICATION: Cardiomyopathy COMPLICATION: None APPROACH: Right radial artery LEVEL OF SEDATION: Moderate with a sedation length of 13 minutes PROCEDURE DESCRIPTION: After obtaining an informed consent, the patient was brought to cardiac computer laboratory technician. Local anesthesia was performed using lidocaine subcutaneously. The right radial artery was cannulated using Seldinger technique, the guidewire passed easily, following that we advanced a 5-[place] sheath dilator assembly, the wire and dilator were removed and sheath was flushed. Following that, 2 mg of verapamil along with 5000 unit heparin were given. Selective right and left coronary angiogram using a 6-[place] JR4 and JL 3.5 catheters. Following that we did left heart catheterization using 6-[place] pigtail catheter. The procedure was completed there was no complication. SELECTIVE CORONARY ANGIOGRAM: The right coronary artery: Is a medium caliber vessel and nondominant vessel. Its angiographically normal. Left main: Is angiographically normal. Bifurcates into all CX and LAD. The left circumflex: Is a large caliber vessel and a dominant vessel. The LCx system is angiographically normal. Approximately gives rise to a large OM branch which appears to be normal. The circumflex distally bifurcates into PDA and PLV branches and both appeared to be angiographically normal The left anterior descending artery: Is a large caliber vessel. Its angiographically normal. Gives rise into the first and second diagonal branches and all appeared to be angiographically normal. The LAD reach the apex and wrapped around the apex as well. HEMODYNAMICS: The LVEDP was 12 mmHg without significant gradient across aortic valve CONCLUSION: 1. Normal coronary angiogram 2. Nonischemic cardiomyopathy POSTPROCEDURE MANAGEMENT: Medical treatment and follow-up with the patient
[2021-10-11] MEDS ORDERED: SODIUM CHLORIDE 0.9% 1,000 ML IV SCH (13:30)
[2021-10-11] MEDS ORDERED: SODIUM CHLORIDE 0.9% 1,000 ML IV ONE (13:42)
--- NOTE | 2021-10-11 14:33 | P.DS ---
Providers Date of admission: 10/09/21 21:36 Expected date of discharge: 10/11/21 Attending physician: Maryann Sosa MD Consults: 10/09/21 21:37 Consult Physician Routine Consulting Provider: [facility] Consult Reason/Comments: atypical chronic chest ppain Do you want consulting provider notified?: Yes Primary care physician: Stated None Hospital Course: Discharge Diagnosis: Atypical chest pain, acute coronary event ruled out. Hypertension Hyperlipidemia COPD Nicotine dependence Hospital Course: Patient is a very pleasant 53-year-old male with a past medical history of hypertension, hyperlipidemia, COPD and current nicotine use smoking one pack of cigarettes daily. He presented to the emergency department on 10/10/21 with a chief complaint of chest pain. He was seen and fully evaluated in the emergency department and admitted under our services with consultation to cardiology to rule out acute coronary syndrome. An EKG was completed revealing normal sinus rhythm at 76 bpm with an incomplete right bundle branch block. Troponins trended and resulting at less than 0.012, 0.013, and 0.018. D-dimer was elevated at 0.97. CTA chest was completed negative for pulmonary emboli. Chest x-ray completed negative for acute cardiopulmonary process. Echocardiogram c ompleted revealing a normal EF between 55 and 60% with no significant valvular abnormalities. Patient underwent cardiac catheterization which concluded normal coronary angiogram with nonischemic cardiomyopathy. Cardiology clearing patient for discharge recommending following up outpatient in their office. Medically patient is stable and is stable for discharge home at this time. Patient to fol low-up outpatient as instructed with PCP and cardiology. Physical examination: Patient seen and examined at bedside. Patient reports being completely free from chest pain, shortness of breath, palpitations, or any other complaints at this time. Vital signs reviewed and stable. General: Nontoxic, no distress and appears stated age. Derm: Skin warm and dry, normal coloration for ethnicity. Head: Atraumatic, normocephalic and symmetric. Eyes: EOMs intact, no lid lag, and anicteric sclera Mouth: no lip lesions, mucus membranes moist Cardiovascular: regular rate and rhythm with normal S1S2, no murmur, positive posterior tibial pulses bilaterally, and cap refill < 2 seconds. Lungs: Respirations even, regular, and unlabored on room air. Lungs CTA bilaterally, no rhonchi, no rales, no wheezing, and no accessory muscle usage. Abdominal: soft, nontender to palpation, no guarding, no appreciable organomegaly Ext: ROM intact. No gross muscle atrophy, no edema, no contractures Neuro: Speech clear, face symmetrical and CN II-XII grossly intact with no noted focal neuro deficits Psych: Alert and oriented to person, place, time, and situation. Appropriate and pleasant affect. A total of 37 minutes of time were spent preparing this complex discharge summary. Patient Condition at Discharge: Stable Plan - Discharge Summary New Discharge Prescriptions: Continue Apixaban [Eliquis] 5 mg PO BID 30 Days #60 tab lisinopriL [Zestril] 5 mg PO DAILY 30 Days #30 tab Spironolactone [Aldactone] 25 mg PO DAILY 30 Days #30 tab Metoprolol Succinate (ER) [Toprol XL] 25 mg PO DAILY 30 Days #30 Furosemide [Lasix] 20 mg PO BID@0900,1600 30 Days #60 tab Discharge Medication List Spironolactone [Aldactone] 25 mg PO DAILY 30 Days #30 tab 08/31/21 [Rx] Apixaban [Eliquis] 5 mg PO BID 30 Days #60 tab 10/05/21 [Rx] Furosemide [Lasix] 20 mg PO BID@0900,1600 30 Days #60 tab 10/05/21 [Rx] Metoprolol Succinate (ER) [Toprol XL] 25 mg PO DAILY 30 Days #30 10/05/21 [Rx] lisinopriL [Zestril] 5 mg PO DAILY 30 Days #30 tab 10/05/21 [Rx] Follow up Appointment(s)/Referral(s): David Tovar MD [REFERRING] - 1-2 Days Chano Phan MD [STAFF PHYSICIAN] - 1 Week Activity/Diet/Wound Care/Special Instructions: Activity: As tolerated. Take breaks as needed. Diet: Heart healthy and carb consistent diet. Avoid salts, or foods with hidden salts such as canned or boxed foods and frozen dinners. Extra salt makes your heart work harder and traps the fluid in your body for longer. Special Instructions: Weigh yourself every morning after you urinate. If you gain 3 pounds overnight or more than 5 pounds in one week, call your primary physician and system designer for guidance on your medications or they may want to see you in their office. Keep a daily log of your weights and be sure to bring with you at follow up visits with your PCP and system designer. Take all of your medications as directed, especially your water pills. NEVER skip a dose. And remember to keep all of your doctor's appointments and follow- up as needed. Elevate your legs when you are not up moving around to help with circulation and prevent swelling. Compression stockings are also a great way to improve lower extremity circulation and prevent/improve lower extremity edema. Call your primary care provider and system designer if you notice any extra swelling in your legs, ankles, feet or abdomen, if you have a new dry cough, if your shortness of breath worsens with activity or at rest, or if you feel more fatigued. Thank you for allowing us to participate in your care, it was truly a pleasure having you for our patient!!! Discharge/Stand Alone Forms: Who Do I Call?, Community Resources, Outpatient Counseling Discharge Disposition: HOME SELF-CARE
[2021-10-11 15:42] VITALS: RESP 14; TEMP 97.4
[2021-10-11 17:17] VITALS: BP 96/68; PULSE 77
[2021-10-12] MEDS ORDERED: HEPARIN SODIUM,PORCINE 10,000 UNIT in SODIUM CHLORIDE 0.9% 1,000 ML IRRIGATION PRN (07:00)
[2021-10-12] MEDS ORDERED: HEPARIN SODIUM,PORCINE 2,500 UNIT in SODIUM CHLORIDE 0.9% 250 ML IRRIGATION PRN (07:00)
== END 2021-10-11 18:20 | disposition home or self-care (01) ==
LOC: EC 18:21 → 6NMEDSUR 21:36
PROVIDERS: ADMIT Internal Medicine; ATTEND Internal Medicine
DX: R07.89 Other chest pain (principal); I42.8 Other cardiomyopathies; I11.0 Hypertensive heart disease with heart failure; I50.22 Chronic systolic (congestive) heart failure; T45.516A Underdosing of anticoagulants, initial encounter; E78.5 Hyperlipidemia, unspecified; R73.03 Prediabetes; F32.A Depression, unspecified; R00.0 Tachycardia, unspecified; E66.9 Obesity, unspecified; Z68.25 Body mass index [BMI] 25.0-25.9, adult; F11.10 Opioid abuse, uncomplicated; F15.10 Other stimulant abuse, uncomplicated; Z59.00 Homelessness unspecified; Z79.899 Other long term (current) drug therapy; Z88.0 Allergy status to penicillin; Z91.14 Patient's other noncompliance with medication regimen; Z86.711 Personal history of pulmonary embolism; Z86.16 Personal history of COVID-19; Z79.01 Long term (current) use of anticoagulants; Z87.891 Personal history of nicotine dependence; Z86.14 Personal history of Methicillin resistant Staphylococcus aureus infection; Z90.49 Acquired absence of other specified parts of digestive tract; Z98.890 Other specified postprocedural states
CPT/HCPCS: 96376 ×3; 96361; 96374; 99285; 36415; 93005; 93458; 80053; 80048; 83735; 84484 ×2; 85025 ×2; 85610; 85730; 71046; 71275; 99152; G0378 ×3; C1894; J2250; J2270 ×3; J2001; J1644; Q9967 ×2

== ENCOUNTER 2021-10-16 07:18 | Emergency (ER) | payer OTHER ==
[2021-10-16 07:48] VITALS: BP 125/85; PULSE 98; RESP 14
[2021-10-16 07:50] VITALS: TEMP 97
--- NOTE | 2021-10-16 07:58 | ED ---
General Adult HPI - General Chief complaint: Chest Pain Stated complaint: Chest pain Time Seen by Provider: 10/16/21 07:27 Source: patient, RN notes reviewed, old records reviewed Mode of arrival: wheelchair Limitations: no limitations - History of Present Illness Initial comments: 51-year-old male with nonischemic cardiomyopathy presents for reevaluation of chest pain. He states this has been ongoing for several months. He was admitted to this hospital multiple times over the past 2 weeks. He did receive workup including CT angiography multiple EKGs, chest x-ray, serial cardiac enzymes, and heart catheterization for this pain. This is not associated with vomiting or diaphoresis. He states he states in the center of his chest. He denies current alcohol or illicit drugs. States he does have previous history. He states he is quite anxious and depressed about the symptoms he is having. - Related Data Previous Rx's Medication Instructions Recorded Spironolactone [Aldactone] 25 mg PO DAILY 30 Days #30 tab 08/31/21 Apixaban [Eliquis] 5 mg PO BID 30 Days #60 tab 10/05/21 Furosemide [Lasix] 20 mg PO BID@0900,1600 30 Days #60 10/05/21 tab Metoprolol Succinate (ER) [Toprol 25 mg PO DAILY 30 Days #30 10/05/21 XL] lisinopriL [Zestril] 5 mg PO DAILY 30 Days #30 tab 10/05/21 Allergies Allergy/AdvReac Type Severity Reaction Status Date / Time Penicillins Allergy Rash/Hives Verified 10/16/21 07:25 Review of Systems ROS Statement: Those systems with pertinent positive or pertinent negative responses have been documented in the HPI. ROS Other: All systems not noted in ROS Statement are negative. Past Medical History Past Medical History: Pulmonary Embolus (PE) Additional Past Medical History / Comment(s): back pain, previous covid, borderline DM History of Any Multi-Drug Resistant Organisms: MRSA Date of last positivie culture/infection: 2014 MDRO Source:: stomach Past Surgical History: Appendectomy Additional Past Surgical History / Comment(s): Ear surgery, skull sx Past Psychological History: Depression Smoking Status: Former smoker Past Alcohol Use History: None Reported Past Drug Use History: Methamphetamine General Exam Limitations: no limitations General appearance: alert, anxious Head exam: Present: atraumatic, normocephalic Eye exam: Present: normal appearance, PERRL ENT exam: Present: normal exam Neck exam: Present: normal inspection. Absent: tenderness, meningismus Respiratory exam: Present: normal lung sounds bilaterally. Absent: respiratory distress, wheezes Cardiovascular Exam: Present: regular rate, normal rhythm GI/Abdominal exam: Present: soft. Absent: distended, tenderness, guarding Extremities exam: Present: normal inspection, normal capillary refill. Absent: pedal edema Neurological exam: Present: alert, oriented X3. Absent: motor sensory deficit Psychiatric exam: Present: depressed, anxious Skin exam: Present: warm, dry, intact. Absent: cyanosis, diaphoretic Course Vital Signs 10/16/21 10/16/21 07:20 07:47 Temperature 97.6 F 97.0 F L Pulse Rate 105 H 98 Respiratory 18 14 Rate Blood Pressure 126/78 125/85 O2 Sat by Pulse 98 97 Oximetry EKG Findings - EKG Comments: EKG Findings:: EKG similar to prior, sinus rhythm, possible left atrial enlargement, rate of 95, OH interval 156, QRS duration 89, QTC [address] segment elevation. Medical Decision Making - Medical Decision Making EKG showing sinus rhythm, unchanged from prior. Chest x-ray is clear without acute process. Patient is somewhat anxious. He is not suicidal or homicidal. He abruptly decides to leave the emergency department. He signs out AGAINST MEDICAL ADVICE. He is alert and oriented and able to make his own decisions at this time. Disposition Clinical Impression: Atypical chest pain, Methamphetamine abuse Disposition: Left Against Medical Advice Condition: Stable Is patient prescribed a controlled substance at d/c from ED?: No Referrals: None,Stated [Primary Care Provider] - 1-2 days Calin Giles MD [STAFF PHYSICIAN] - 1-2 days Time of Disposition: 09:08
--- NOTE | 2021-10-16 08:16 | XR ---
EXAMINATION TYPE: XR chest 2V DATE OF EXAM: 10/16/2021 COMPARISON: Chest x-ray and CT 1 week ago. HISTORY: Chest pain. TECHNIQUE: Frontal and lateral views of the chest are obtained. FINDINGS: There is no suspicious focal air space opacity, pleural effusion, or pneumothorax seen. T he cardiac silhouette size is stable and mildly enlarged. The osseous structures are intact. IMPRESSION: Mild cardiomegaly without acute pulmonary process. No significant change from prior.
== END 2021-10-16 09:10 | disposition left against medical advice (07) ==
LOC: EC 07:18
DX: R07.89 Other chest pain (principal); F15.10 Other stimulant abuse, uncomplicated; F32.A Depression, unspecified; Z79.01 Long term (current) use of anticoagulants; Z88.0 Allergy status to penicillin; Z86.711 Personal history of pulmonary embolism; Z90.49 Acquired absence of other specified parts of digestive tract; Z87.891 Personal history of nicotine dependence
CPT/HCPCS: 71046; 82075; 93005; 99285

== ENCOUNTER 2021-12-08 05:39 | Emergency (ER) | payer OTHER ==
[2021-12-08 05:47] VITALS: TEMP 97.5
[2021-12-08] MEDS ORDERED: IPRATROPIUM-ALBUTEROL 3 ML NEB INHALATION STA (05:49)
[2021-12-08 06:37] LABS: Anisocytosis Slight; Basophils % (A) 0 %; Eosinophils # (A) 0.1 k/uL (0-0.7); Eosinophils % (A) 0 %; HCT 40.8 % (39.0-53.0); HGB 12.1 gm/dL (13.0-17.5); Hypochromasia Marked; Lymphocytes # (A) 1.2 k/uL (1.0-4.8); Lymphocytes % (A) 6 %; MCH 26.6 pg (25.0-35.0); MCHC 29.7 g/dL (31.0-37.0); MCV 89.8 fL (80.0-100.0); Monocytes # (A) 0.8 k/uL (0-1.0); Monocytes % (A) 4 %; Neutrophils # (A) 17.8 k/uL (1.3-7.7); Neutrophils % (A) 89 %; Platelet Count 460 k/uL (150-450); RBC 4.54 m/uL (4.30-5.90); RDW 17.5 % (11.5-15.5)
--- NOTE | 2021-12-08 06:38 | XR ---
EXAMINATION TYPE: XR chest 1V portable DATE OF EXAM: 12/08/2021 COMPARISON: 08/28/2021 HISTORY: Chest pain TECHNIQUE: Single view FINDINGS: Heart is moderately enlarged. There is coarsening of the pulmonary interstitial markings. C ostophrenic angles are clear. There are no hilar masses. Bony thorax is intact. IMPRESSION: Cardiomegaly. Mild pulmonary interstitial edema. No significant change compared to the ol d exam. Mild heart failure is possible.
[2021-12-08 06:49] LABS: INR 1.1 (<1.2)
[2021-12-08 06:50] LABS: Partial Thromboplastin Time 24.9 sec (22.0-30.0)
[2021-12-08 07:27] LABS: ALT 23 U/L (4-49); AST 41 U/L (17-59); African American GFR (CKD) >90 (>60 ml/min/1.73 sqM); Albumin 3.4 g/dL (3.5-5.0); Alkaline Phosphatase 83 U/L (38-126); Anion Gap 9 mmol/L; Blood Urea Nitrogen 31 mg/dL (9-20); Calcium 8.5 mg/dL (8.4-10.2); Carbon Dioxide 23 mmol/L (22-30); Chloride 109 mmol/L (98-107); Glucose 128 mg/dL (74-99); Magnesium 2.1 mg/dL (1.6-2.3); Non-African American GFR(CKD) >90 (>60 ml/min/1.73 sqM); Potassium 4.1 mmol/L (3.5-5.1); Sodium 141 mmol/L (137-145); Total Bilirubin 1.3 mg/dL (0.2-1.3); Total Protein 6.8 g/dL (6.3-8.2)
--- NOTE | 2021-12-08 07:31 | ED ---
General Adult HPI - General Chief complaint: Shortness of Breath Stated complaint: QUINN Time Seen by Provider: 12/08/21 05:58 Source: patient, RN notes reviewed Mode of arrival: ambulatory Limitations: no limitations - History of Present Illness Initial comments: This a 51-year-old male presents emergency Department chief complaint of cough congestion shortness of breath. Patient states she feels sick. Patient states subjective fevers and chills and tightness. Denies any back pain no abdominal pain denies any sick contacts. No reported fever no recorded but states he fell he said fever. Patient is nonproductive cough or ear pain no sore throat patient states he is course for prior pulmonary embolism Covid 6 months ago. - Related Data Previous Rx's Medication Instructions Recorded Albuterol Sulfate [Proair Hfa] 1 - 2 puff INHALATION Q4HR PRN 12/08/21 #8.5 gm Azithromycin [Zithromax Z-pack (6 0 mg PO DIRECTED #1 packet 12/08/21 tabs)] predniSONE 50 mg PO DAILY #5 tab 12/08/21 Allergies Allergy/AdvReac Type Severity Reaction Status Date / Time Penicillins Allergy Rash/Hives Verified 12/08/21 07:58 Review of Systems ROS Statement: Those systems with pertinent positive or pertinent negative responses have been documented in the HPI. ROS Other: All systems not noted in ROS Statement are negative. Past Medical History Past Medical History: Pulmonary Embolus (PE) Additional Past Medical History / Comment(s): back pain, previous covid, borderline DM History of Any Multi-Drug Resistant Organisms: MRSA Date of last positivie culture/infection: 2014 MDRO Source:: stomach Past Surgical History: Appendectomy Additional Past Surgical History / Comment(s): Ear surgery, skull sx Past Psychological History: Depression Smoking Status: Former smoker Past Alcohol Use History: None Reported Past Drug Use History: Methamphetamine General Exam General appearance: alert, in no apparent distress Head exam: Present: atraumatic, normocephalic, normal inspection Eye exam: Present: normal appearance, PERRL, EOMI. Absent: scleral icterus, conjunctival injection, periorbital swelling ENT exam: Present: normal exam, normal oropharynx, mucous membranes moist Neck exam: Present: normal inspection, full ROM. Absent: tenderness, meningismus, lymphadenopathy Respiratory exam: Present: wheezes, rhonchi. Absent: normal lung sounds bilaterally, respiratory distress, rales, stridor Cardiovascular Exam: Present: regular rate, normal rhythm, normal heart sounds. Absent: systolic murmur, diastolic murmur, rubs, gallop, clicks GI/Abdominal exam: Present: soft, normal bowel sounds. Absent: distended, tenderness, guarding, rebound, rigid Course Vital Signs 12/08/21 12/08/21 12/08/21 05:41 06:16 06:17 Temperature 97.5 F L Pulse Rate 108 H 88 Respiratory 24 16 Rate Blood Pressure 110/58 O2 Sat by Pulse 97 Oximetry 12/08/21 06:24 Temperature Pulse Rate 76 Respiratory Rate Blood Pressure O2 Sat by Pulse Oximetry Medical Decision Making - Medical Decision Making 51-year-old male presented for cough congestion shortness breath. Patient does have mild leukocytosis. No definite pneumonia patient we treated for COPD exacerbation. Patient's vitals are stable. Patient was given Rocephin and Solu-Medrol will be discharged on azithromycin prednisone and pro-air. I counseled the patient for smoking cessation for greater than 3 minutes - Lab Data Result diagrams: 12/08/21 05:57 12/08/21 06:51 Lab Results 12/08/21 12/08/21 12/08/21 Range/Units 05:57 05:57 05:57 WBC 20.0 H (3.8-10.6) k/uL RBC 4.54 (4.30-5.90) m/uL Hgb 12.1 L (13.0-17.5) gm/dL Hct 40.8 (39.0-53.0) % MCV 89.8 (80.0-100.0) fL MCH 26.6 (25.0-35.0) pg MCHC 29.7 L (31.0-37.0) g/dL RDW 17.5 H (11.5-15.5) % Plt Count 460 H (150-450) k/uL MPV 7.0 Neutrophils % 89 % Lymphocytes % 6 % Monocytes % 4 % Eosinophils % 0 % Basophils % 0 % Neutrophils # 17.8 H (1.3-7.7) k/uL Lymphocytes # 1.2 (1.0-4.8) k/uL Monocytes # 0.8 (0-1.0) k/uL Eosinophils # 0.1 (0-0.7) k/uL Basophils # 0.0 (0-0.2) k/uL Hypochromasia Marked Anisocytosis Slight PT 12.0 (9.0-12.0) sec INR 1.1 (<1.2) APTT 24.9 (22.0-30.0) sec Sodium (137-145) mmol/L Potassium (3.5-5.1) mmol/L Chloride (98-107) mmol/L Carbon Dioxide (22-30) mmol/L Anion Gap mmol/L BUN (9-20) mg/dL Creatinine (0.66-1.25) mg/dL Est GFR (CKD-EPI)AfAm (>60 ml/min/1.73 sqM) Est GFR (CKD-EPI)NonAf (>60 ml/min/1.73 sqM) Glucose (74-99) mg/dL Plasma Lactic Acid Archie 1.5 (0.7-2.0) mmol/L Calcium (8.4-10.2) mg/dL Magnesium (1.6-2.3) mg/dL Total Bilirubin (0.2-1.3) mg/dL AST (17-59) U/L ALT (4-49) U/L Alkaline Phosphatase (38-126) U/L Troponin I (0.000-0.034) ng/mL NT-Pro-B Natriuret Pep pg/mL Total Protein (6.3-8.2) g/dL Albumin (3.5-5.0) g/dL Coronavirus (PCR) (Not Detectd) 12/08/21 12/08/21 12/08/21 Range/Units 05:57 05:57 06:51 WBC (3.8-10.6) k/uL RBC (4.30-5.90) m/uL Hgb (13.0-17.5) gm/dL Hct (39.0-53.0) % MCV (80.0-100.0) fL MCH (25.0-35.0) pg MCHC (31.0-37.0) g/dL RDW (11.5-15.5) % Plt Count (150-450) k/uL MPV Neutrophils % % Lymphocytes % % Monocytes % % Eosinophils % % Basophils % % Neutrophils # (1.3-7.7) k/uL Lymphocytes # (1.0-4.8) k/uL Monocytes # (0-1.0) k/uL Eosinophils # (0-0.7) k/uL Basophils # (0-0.2) k/uL Hypochromasia Anisocytosis PT (9.0-12.0) sec INR (<1.2) APTT (22.0-30.0) sec Sodium (137-145) mmol/L Potassium (3.5-5.1) mmol/L Chloride (98-107) mmol/L Carbon Dioxide (22-30) mmol/L Anion Gap mmol/L BUN (9-20) mg/dL Creatinine (0.66-1.25) mg/dL Est GFR (CKD-EPI)AfAm (>60 ml/min/1.73 sqM) Est GFR (CKD-EPI)NonAf (>60 ml/min/1.73 sqM) Glucose (74-99) mg/dL Plasma Lactic Acid Archie (0.7-2.0) mmol/L Calcium (8.4-10.2) mg/dL Magnesium (1.6-2.3) mg/dL Total Bilirubin (0.2-1.3) mg/dL AST (17-59) U/L ALT (4-49) U/L Alkaline Phosphatase (38-126) U/L Troponin I 0.022 (0.000-0.034) ng/mL NT-Pro-B Natriuret Pep 3900 pg/mL Total Protein (6.3-8.2) g/dL Albumin (3.5-5.0) g/dL Coronavirus (PCR) Not Detected (Not Detectd) 12/08/21 Range/Units 06:51 WBC (3.8-10.6) k/uL RBC (4.30-5.90) m/uL Hgb (13.0-17.5) gm/dL Hct (39.0-53.0) % MCV (80.0-100.0) fL MCH (25.0-35.0) pg MCHC (31.0-37.0) g/dL RDW (11.5-15.5) % Plt Count (150-450) k/uL MPV Neutrophils % % Lymphocytes % % Monocytes % % Eosinophils % % Basophils % % Neutrophils # (1.3-7.7) k/uL Lymphocytes # (1.0-4.8) k/uL Monocytes # (0-1.0) k/uL Eosinophils # (0-0.7) k/uL Basophils # (0-0.2) k/uL Hypochromasia Anisocytosis PT (9.0-12.0) sec INR (<1.2) APTT (22.0-30.0) sec Sodium 141 (137-145) mmol/L Potassium 4.1 (3.5-5.1) mmol/L Chloride 109 H (98-107) mmol/L Carbon Dioxide 23 (22-30) mmol/L Anion Gap 9 mmol/L BUN 31 H (9-20) mg/dL Creatinine 0.92 (0.66-1.25) mg/dL Est GFR (CKD-EPI)AfAm >90 (>60 ml/min/1.73 sqM) Est GFR (CKD-EPI)NonAf >90 (>60 ml/min/1.73 sqM) Glucose 128 H (74-99) mg/dL Plasma Lactic Acid Archie (0.7-2.0) mmol/L Calcium 8.5 (8.4-10.2) mg/dL Magnesium 2.1 (1.6-2.3) mg/dL Total Bilirubin 1.3 (0.2-1.3) mg/dL AST 41 (17-59) U/L ALT 23 (4-49) U/L Alkaline Phosphatase 83 (38-126) U/L Troponin I (0.000-0.034) ng/mL NT-Pro-B Natriuret Pep pg/mL Total Protein 6.8 (6.3-8.2) g/dL Albumin 3.4 L (3.5-5.0) g/dL Coronavirus (PCR) (Not Detectd) Disposition Clinical Impression: COPD exacerbation Disposition: HOME SELF-CARE Condition: Stable Instructions (If sedation given, give patient instructions): COPD (Chronic O bstructive Pulmonary Disease) (ED) Additional Instructions: Please return to the Emergency Department if symptoms worsen or any other concerns. Prescriptions: predniSONE 50 mg PO DAILY #5 tab Albuterol Sulfate [Proair Hfa] 1 - 2 puff INHALATION Q4HR PRN #8.5 gm PRN Reason: difficulty in breathing Azithromycin [Zithromax Z-pack (6 tabs)] 0 mg PO DIRECTED #1 packet Is patient prescribed a controlled substance at d/c from ED?: No Referrals: None,Stated [Primary Care Provider] - 1-2 days Time of Disposition: 08:34
[2021-12-08] MEDS ORDERED: cefTRIAXone IN SWFI 1,000 MG/10 ML SYRINGE IVP STA (08:31)
[2021-12-08] MEDS ORDERED: methylPREDNISolone SOD SUCCI 125 MG/2 ML VIAL IV STA (08:31)
[2021-12-08 08:55] VITALS: BP 114/60; PULSE 78; RESP 20
== END 2021-12-08 08:54 | disposition home or self-care (01) ==
LOC: EC 05:39
DX: J44.1 Chronic obstructive pulmonary disease with (acute) exacerbation (principal); Z20.822 Contact with and (suspected) exposure to COVID-19; Z87.891 Personal history of nicotine dependence; Z86.16 Personal history of COVID-19; Z88.0 Allergy status to penicillin
CPT/HCPCS: 36415; 94640; 93005; 83880; 80053; 83605; 83735; 84484; 85025; 85610; 85730; 87635; 71045; 99285; 96374; 96375; J2930; J0696

== ENCOUNTER 2021-12-08 10:10 | Emergency (ER) | payer OTHER ==
[2021-12-08 10:13] VITALS: TEMP 97.8
[2021-12-08] MEDS ORDERED: KETOROLAC 15 MG/ML 1 ML VIAL IM STA (10:27)
--- NOTE | 2021-12-08 11:22 | ED ---
Chest Pain HPI - General Chief Complaint: Chest Pain Stated Complaint: Chest pain Time Seen by Provider: 12/08/21 10:12 Source: patient, EMS, RN notes reviewed Mode of arrival: EMS Limitations: no limitations - History of Present Illness Initial Comments: This a 51-year-old male presents emergency Department for intermediate clearance. Patient was seen earlier today for shortness of breath, methamphetamine abuse. Patient had full set of labs EKG chest x-ray patient had mild leukocytosis the bleeding. Reactive given antibiotics and steroids for COPD exacerbation. Patient felt better upon discharge patient started having erratic behavior and was brought back to the emergency Department which patient has a warrant for his arrest. Patient then began started complaining of chest discomfort. Patient denies abdominal pain denies any fevers or chills no other complaints. - Related Data Home Medications Medication Instructions Recorded Confirmed Albuterol Sulfate [Proair Hfa] 1 - 2 puff INHALATION RT-Q4H PRN 12/08/21 12/08/21 Azithromycin [Zithromax Z-pack (6 See Taper PO DIRECTED 12/08/21 12/08/21 tabs)] Previous Rx's Medication Instructions Recorded predniSONE 50 mg PO DAILY #5 tab 12/08/21 Allergies Allergy/AdvReac Type Severity Reaction Status Date / Time Penicillins Allergy Rash/Hives Verified 12/08/21 07:58 Review of Systems ROS Statement: Those systems with pertinent positive or pertinent negative responses have been documented in the HPI. ROS Other: All systems not noted in ROS Statement are negative. Past Medical History Past Medical History: Pulmonary Embolus (PE) Additional Past Medical History / Comment(s): back pain, previous covid, borderline DM History of Any Multi-Drug Resistant Organisms: MRSA Date of last positivie culture/infection: 2014 MDRO Source:: stomach Past Surgical History: Appendectomy Additional Past Surgical History / Comment(s): Ear surgery, skull sx Past Psychological History: Unable to Obtain, Depression Smoking Status: Former smoker Past Alcohol Use History: None Reported Past Drug Use History: Methamphetamine General Exam Limitations: no limitations General appearance: alert, in no apparent distress, anxious Head exam: Present: atraumatic, normocephalic, normal inspection Eye exam: Present: normal appearance, PERRL, EOMI. Absent: scleral icterus, conjunctival injection, periorbital swelling ENT exam: Present: normal exam, mucous membranes moist Neck exam: Present: normal inspection. Absent: tenderness, meningismus, lymphadenopathy Respiratory exam: Present: normal lung sounds bilaterally. Absent: respiratory distress, wheezes, rales, rhonchi, stridor Cardiovascular Exam: Present: regular rate, normal rhythm, normal heart sounds. Absent: systolic murmur, diastolic murmur, rubs, gallop, clicks Neurological exam: Present: alert, oriented X3 Psychiatric exam: Present: anxious Skin exam: Present: warm, dry, intact, normal color. Absent: rash Course Vital Signs 12/08/21 12/08/21 10:11 11:25 Temperature 97.8 F 97.8 F Pulse Rate 109 H 89 Respiratory 18 22 Rate Blood Pressure 133/98 134/78 O2 Sat by Pulse 96 98 Oximetry Chest Pain MDM - MDM I repeatedly asked the patient to provide a urinalysis in which patient has methamphetamine abuse issues. Patient's been having erratic behavior today consistent with methamphetamine use. He refuses became belligerent yelling. Patient did have. The labs early this morning with repeat labs no 17 change in cardiac enzymes, EKG shows no acute changes. Patient continued DL, screen no signs of distress. Disposition Clinical Impression: Methamphetamine abuse, Atypical chest pain, In police custody Disposition: HOME SELF-CARE Condition: Stable Instructions (If sedation given, give patient instructions): Chest Pain (ED) Additional Instructions: Please return to the Emergency Department if symptoms worsen or any other concerns. Is patient prescribed a controlled substance at d/c from ED?: No Referrals: None,Stated [Primary Care Provider] - 1-2 days Time of Disposition:
[2021-12-08 11:26] VITALS: BP 134/78; PULSE 89; RESP 22
== END 2021-12-08 11:24 | disposition home or self-care (01) ==
LOC: EC 10:10
DX: F15.10 Other stimulant abuse, uncomplicated (principal); R07.89 Other chest pain; Z65.3 Problems related to other legal circumstances; Z86.16 Personal history of COVID-19; Z87.891 Personal history of nicotine dependence; Z88.0 Allergy status to penicillin
CPT/HCPCS: 36415; 93005; 84484; 99285; 96372; J1885

== ENCOUNTER 2022-04-01 16:24 | Emergency (ER) | payer OTHER ==
[2022-04-01 16:31] VITALS: BP 135/77; PULSE 99; RESP 18; TEMP 97.7
--- NOTE | 2022-04-01 17:15 | CT ---
EXAMINATION TYPE: CT brain susanna wo con DATE OF EXAM: 04/01/2022 COMPARISON: None HISTORY: fall, head injury CT DLP: 1433.4 mGycm Automated exposure control for dose reduction was used. Images obtained of the brain and cervical spine with no contrast. Ventricles and sulci appear normal. There is no mass effect or midline shift. No sign of intracranial hemorrhage. No evidence of cerebral edema. The calvarium is intact. There is some mucosal thickening at the left external auditory canal. There is previous left mastoid sinus surgery. There is mild muc osal thickening left maxillary sinus. The cervical vertebra is normal alignment. Posterior limits are intact. No compression fracture. Ther e is minimal cervical facet arthropathy. There is minor spurring at C5-6. Prevertebral soft tissues a re intact. IMPRESSION: No acute abnormality of the cervical spine. Minor degenerative changes. No fracture. Negative CT scan of the brain. Previous left mastoid surgery with evidence of left side of otitis ext evan. Small mucous retention cysts in the left maxillary sinus.
[2022-04-01] MEDS ORDERED: ACETAMINOPHEN TAB 325 MG TAB PO STA (17:33)
[2022-04-01] MEDS ORDERED: IBUPROFEN 400 MG TAB PO STA (17:33)
[2022-04-01 18:01] LABS: Basophils % (A) 0 %; Eosinophils # (A) 0.1 k/uL (0-0.7); Eosinophils % (A) 2 %; HCT 42.8 % (39.0-53.0); HGB 14.2 gm/dL (13.0-17.5); Lymphocytes # (A) 1.1 k/uL (1.0-4.8); Lymphocytes % (A) 12 %; MCH 28.4 pg (25.0-35.0); MCHC 33.2 g/dL (31.0-37.0); MCV 85.4 fL (80.0-100.0); Mean Platelet Volume 7.5; Monocytes # (A) 0.9 k/uL (0-1.0); Monocytes % (A) 9 %; Neutrophils # (A) 6.8 k/uL (1.3-7.7); Neutrophils % (A) 75 %; Platelet Count 251 k/uL (150-450); RBC 5.02 m/uL (4.30-5.90); RDW 15.5 % (11.5-15.5)
[2022-04-01 18:13] LABS: African American GFR (CKD) >90 (>60 ml/min/1.73 sqM); Anion Gap 12 mmol/L; Blood Urea Nitrogen 24 mg/dL (9-20); Calcium 9.8 mg/dL (8.4-10.2); Carbon Dioxide 23 mmol/L (22-30); Chloride 106 mmol/L (98-107); Glucose 96 mg/dL (74-99); Non-African American GFR(CKD) >90 (>60 ml/min/1.73 sqM); Sodium 141 mmol/L (137-145)
--- NOTE | 2022-04-01 18:39 | ED ---
Fall HPI - General Chief Complaint: Fall Stated Complaint: Fall on thinners-head injury Time Seen by Provider: 04/01/22 16:35 Source: police Mode of arrival: wheelchair - History of Present Illness Initial Comments: This patient is a 51-year-old man brought from snf to have evaluation after he had a fall. The patient fell forward striking the left forehead. He does believe he lost consciousness not sure how long. The patient does not remember the details of what occurred just prior to the fall nor just after the fall. He does recall being at the hospital. Patient denies other injury, does complain of pain basically throughout the head, neck, and upper torso. Complaint: fall Onset/Timin -: hour(s) When Fall Occurred: just prior to arrival Fall Witnessed: no Place Fall Occurred: other Loss of Consciousness: unsure Prolonged Down Time?: no Symptoms Prior to Fall: none Location: head - Related Data Home Medications Medication Instructions Recorded Confirmed Albuterol Sulfate [Proair Hfa] 1 - 2 puff INHALATION RT-Q4H PRN 12/08/21 12/08/21 Azithromycin [Zithromax Z-pack (6 See Taper PO DIRECTED 12/08/21 12/08/21 tabs)] Previous Rx's Medication Instructions Recorded predniSONE 50 mg PO DAILY #5 tab 12/08/21 Allergies Allergy/AdvReac Type Severity Reaction Status Date / Time Penicillins Allergy Rash/Hives Verified 04/01/22 16:31 Review of Systems ROS Statement: Those systems with pertinent positive or pertinent negative responses have been documented in the HPI. ROS Other: All systems not noted in ROS Statement are negative. Constitutional: Denies: fever, chills Eyes: Denies: eye pain, vision change Respiratory: Denies: cough, dyspnea Cardiovascular: Reports: syncope. Denies: chest pain, palpitations Gastrointestinal: Denies: abdominal pain, vomiting, diarrhea Genitourinary: Denies: dysuria Musculoskeletal: Reports: myalgia Skin: Denies: lesions Neurological: Reports: headache, confusion. Denies: weakness, numbness, paresthesias Past Medical History Past Medical History: Pulmonary Embolus (PE) Additional Past Medical History / Comment(s): back pain, previous covid, borderline DM History of Any Multi-Drug Resistant Organisms: MRSA Date of last positivie culture/infection: 2014 MDRO Source:: stomach Past Surgical History: Appendectomy Additional Past Surgical History / Comment(s): Ear surgery, skull sx Past Psychological History: Unable to Obtain, Depression Smoking Status: Former smoker Past Alcohol Use History: None Reported Past Drug Use History: Methamphetamine General Exam Limitations: language barrier General appearance: alert, in no apparent distress Head exam: Present: normocephalic, other (Small contusion left forehead. No palpable deformity.) Eye exam: Present: normal appearance, PERRL, EOMI. Absent: scleral icterus, conjunctival injection, nystagmus ENT exam: Present: normal oropharynx Neck exam: Present: normal inspection, tenderness, full ROM. Absent: meningismus Respiratory exam: Present: normal lung sounds bilaterally, chest wall tenderness. Absent: respiratory distress, wheezes, rales, rhonchi, stridor, accessory muscle use Cardiovascular Exam: Present: regular rate, normal rhythm, normal heart sounds. Absent: systolic murmur, diastolic murmur, rubs, gallop GI/Abdominal exam: Present: soft. Absent: distended, tenderness, guarding, rebound, rigid Extremities exam: Present: normal inspection, normal capillary refill. Absent: pedal edema, calf tenderness Back exam: Present: normal inspection. Absent: CVA tenderness (R), CVA tenderness (L), vertebral tenderness Neurological exam: Present: alert, CN II-XII intact. Absent: oriented X3, motor sensory deficit Skin exam: Present: warm, dry, intact, normal color. Absent: rash Course Vital Signs 04/01/22 16:25 Temperature 97.7 F Pulse Rate 99 Respiratory 18 Rate Blood Pressure 135/77 O2 Sat by Pulse 98 Oximetry Medical Decision Making - Lab Data Result diagrams: 04/01/22 17:51 04/01/22 17:51 Lab Results 04/01/22 04/01/22 04/01/22 Range/Units 17:51 17:51 17:51 WBC 9.0 (3.8-10.6) k/uL RBC 5.02 (4.30-5.90) m/uL Hgb 14.2 (13.0-17.5) gm/dL Hct 42.8 (39.0-53.0) % MCV 85.4 (80.0-100.0) fL MCH 28.4 (25.0-35.0) pg MCHC 33.2 (31.0-37.0) g/dL RDW 15.5 (11.5-15.5) % Plt Count 251 (150-450) k/uL MPV 7.5 Neutrophils % 75 % Lymphocytes % 12 % Monocytes % 9 % Eosinophils % 2 % Basophils % 0 % Neutrophils # 6.8 (1.3-7.7) k/uL Lymphocytes # 1.1 (1.0-4.8) k/uL Monocytes # 0.9 (0-1.0) k/uL Eosinophils # 0.1 (0-0.7) k/uL Basophils # 0.0 (0-0.2) k/uL D-Dimer 0.21 (<0.60) mg/L FEU Sodium 141 (137-145) mmol/L Potassium 4.0 (3.5-5.1) mmol/L Chloride 106 (98-107) mmol/L Carbon Dioxide 23 (22-30) mmol/L Anion Gap 12 mmol/L BUN 24 H (9-20) mg/dL Creatinine 0.70 (0.66-1.25) mg/dL Est GFR (CKD-EPI)AfAm >90 (>60 ml/min/1.73 sqM) Est GFR (CKD-EPI)NonAf >90 (>60 ml/min/1.73 sqM) Glucose 96 (74-99) mg/dL Calcium 9.8 (8.4-10.2) mg/dL Troponin I (0.000-0.034) ng/mL 04/01/22 Range/Units 17:51 WBC (3.8-10.6) k/uL RBC (4.30-5.90) m/uL Hgb (13.0-17.5) gm/dL Hct (39.0-53.0) % MCV (80.0-100.0) fL MCH (25.0-35.0) pg MCHC (31.0-37.0) g/dL RDW (11.5-15.5) % Plt Count (150-450) k/uL MPV Neutrophils % % Lymphocytes % % Monocytes % % Eosinophils % % Basophils % % Neutrophils # (1.3-7.7) k/uL Lymphocytes # (1.0-4.8) k/uL Monocytes # (0-1.0) k/uL Eosinophils # (0-0.7) k/uL Basophils # (0-0.2) k/uL D-Dimer (<0.60) mg/L FEU Sodium (137-145) mmol/L Potassium (3.5-5.1) mmol/L Chloride (98-107) mmol/L Carbon Dioxide (22-30) mmol/L Anion Gap mmol/L BUN (9-20) mg/dL Creatinine (0.66-1.25) mg/dL Est GFR (CKD-EPI)AfAm (>60 ml/min/1.73 sqM) Est GFR (CKD-EPI)NonAf (>60 ml/min/1.73 sqM) Glucose (74-99) mg/dL Calcium (8.4-10.2) mg/dL Troponin I <0.012 (0.000-0.034) ng/mL Disposition Clinical Impression: Fall, Head injury Disposition: HOME SELF-CARE Condition: Good Instructions (If sedation given, give patient instructions): Head Injury (ED) Is patient prescribed a controlled substance at d/c from ED?: No Referrals: None,Stated [Primary Care Provider] - 1-2 days Silvestre Wilkins MD [STAFF PHYSICIAN] - 1-2 days
== END 2022-04-01 18:54 | disposition home or self-care (01) ==
LOC: EC 16:24
DX: S00.83XA Contusion of other part of head, initial encounter (principal); S09.90XA Unspecified injury of head, initial encounter; Z86.711 Personal history of pulmonary embolism; Z87.891 Personal history of nicotine dependence; Z88.0 Allergy status to penicillin; W18.00XA Striking against unspecified object with subsequent fall, initial encounter
CPT/HCPCS: 36415; 70450; 72125; 80048; 84484; 85025; 85379; 99284

== ENCOUNTER 2024-07-03 06:10 | Emergency (ER) | payer OTHER ==
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
[2024-07-03] MEDS: KETOROLAC 15 MG/ML 1 ML VIAL IM STA (06:54)
--- NOTE | 2024-07-03 07:26 | XR ---
EXAMINATION TYPE: XR wrist complete 4 views RT, XR hand complete 3 views RT DATE OF EXAM: 07/03/2024 COMPARISON: NONE CLINICAL INDICATION: Male, 53 years old with pain after history of Fall; FINDINGS: Wrist: The radiocarpal and distal radioulnar joint as well as the midcarpal compartment appear intact. No ac aniak fracture, subluxation, or dislocation is seen. Hand: There is a corticated appearing ossific density along the dorsal carpus on the lateral view measuring 6 mm. In addition, there is a intra-articular fracture at the base of the fifth metacarpal. Intra-ar ticular extension into the fifth CMC joint with a minimal 2 mm of impaction. Overlying soft tissue sw elling. IMPRESSION: 1. Wrist: No acute osseous abnormality seen. 2. Hand: Oblique fracture base of the fifth metacarpal with intra-articular extension into the fifth CMC joint and with minimal 2 mm of impaction. Overlying soft tissue swelling. 3. Hand: 6 mm ossific density dorsal carpus on the lateral view as a corticated appearance, possibly sequela of old injury. [facility], , 07/03/2024 7:24 AM
[2024-07-03 07:55] VITALS: BP 144/86; PULSE 71; RESP 18; TEMP 98.1
== END 2024-07-03 07:53 | disposition home or self-care (01) ==
LOC: EC 06:10
DX: S62.307A Unspecified fracture of fifth metacarpal bone, left hand, initial encounter for closed fracture (principal); Z87.891 Personal history of nicotine dependence; Z91.030 Bee allergy status; Z88.0 Allergy status to penicillin; V18.0XXA Pedal cycle driver injured in noncollision transport accident in nontraffic accident, initial encounter
CPT/HCPCS: 73110; 73130; 99283; 29125; 96372; J1885

== ENCOUNTER 2024-07-04 08:35 | Emergency (ER) | payer OTHER ==
[2024-07-04] MEDS: KETOROLAC 15 MG/ML 1 ML VIAL IM STA (08:51)
[2024-07-04] MEDS: HYDROcodone/APAP 5-325MG 1 EACH TAB PO STA (08:51)
--- NOTE | 2024-07-04 08:55 | ED ---
Extremity Problem HPI - General Chief complaint: Extremity Problem,Nontraumatic Stated complaint: Hand/Arm Pain Time Seen by Provider: 07/04/24 08:37 Source: patient, RN notes reviewed Mode of arrival: ambulatory Limitations: no limitations - History of Present Illness Initial comments: 53-year-old male presents emergency department complaint of right hand pain. Patient was seen here yesterday and was found to have fifth metacarpal fracture. Patient states he contacted orthopedics and they told him they were unable to to take care of him. Patient states that worsening pain in this has been over a week. Patient denies any new injuries no other complaints. - Related Data Home Medications Medication Instructions Recorded Confirmed Albuterol Sulfate [Proair Hfa] 1 - 2 puff INHALATION RT-Q4H PRN 12/08/21 12/08/21 Azithromycin [Zithromax Z-pack (6 See Taper PO DIRECTED 12/08/21 12/08/21 tabs)] Previous Rx's Medication Instructions Recorded predniSONE 50 mg PO DAILY #5 tab 12/08/21 Allergies Allergy/AdvReac Type Severity Reaction Status Date / Time bee venom protein (honey bee) Allergy Swelling Verified 07/04/24 08:39 Penicillins Allergy Rash/Hives Verified 07/04/24 08:39 Review of Systems ROS Statement: Those systems with pertinent positive or pertinent negative responses have been documented in the HPI. ROS Other: All systems not noted in ROS Statement are negative. 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 Absent: respiratory distress, wheezes, rales, rhonchi, stridor Cardiovascular Exam: Present: regular rate, normal rhythm, normal heart sounds. Absent: systolic murmur, diastolic murmur, rubs, gallop, clicks Extremities exam: Present: other (Right hand in splint neurovascular intact, cap refill less than 2 seconds) Course Vital Signs 07/04/24 07/04/24 08:37 10:13 Temperature 98.4 F 98 F Pulse Rate 75 76 Respiratory 16 18 Rate Blood Pressure 150/94 146/92 O2 Sat by Pulse 97 97 Oximetry Medical Decision Making - Medical Decision Making Was pt. sent in by a medical professional or institution (, OTTON[place]EL, IMAGE EDITOR, urgent care, hospital, or correction...) When possible be specific @ -No Did you speak to anyone other than the patient for history (EMS, parent, family, police, friend...)? What history was obtained from this source @ -No Did you review nursing and triage notes (agree or disagree)? Why? @ -I reviewed and agree with nursing and triage notes Were old charts reviewed (outside hosp., previous admission, EMS record, old EKG, old radiological studies, urgent care reports/EKG's, correction records)? Report findings @ -No old charts were reviewed Differential Diagnosis (chest pain, altered mental status, abdominal pain women, abdominal pain men, vaginal bleeding, weakness, fever, dyspnea, syncope, headache, dizziness, GI bleed, back pain, seizure, CVA, palpatations, mental health, musculoskeletal)? @ -And fracture hand pain EKG interpreted by me (3pts min.). @ -None X-rays interpreted by me (1pt min.). @ -None done CT interpreted by me (1pt min.). @ -None done U/S interpreted by me (1pt. min.). @ -None done What testing was considered but not performed or refused? (CT, X-rays, U/S, labs)? Why? @ -None What meds were considered but not given or refused? Why? @ -None Did you discuss the management of the patient with other professionals (professionals i.e. OTTONIEL Hicks, IMAGE EDITOR, lab, RT, psych nurse, social media senior associate, clinical product specialist, teacher, digital controls technical officer, case worker)? Give summary @ -I discussed the case with on-call orthopedics Dr. Dick who states that he is unable to follow the patient as did not except patient's insurance and that he does not have hand surgeon on-call. Was smoking cessation discussed for >3mins.? @ -No Was critical care preformed (if so, how long)? @ -No Were there social determinants of health that impacted care today? How? (Homelessness, low income, unemployed, alcoholism, drug addiction, tra nsportation, low edu. Level, literacy, decrease access to med. care, residential, rehab)? @ -No Was there de-escalation of care discussed even if they declined (Discuss DNR or withdrawal of care, Hospice)? DNR status @ -No What co-morbidities impacted this encounter? (DM, HTN, Smoking, COPD, CAD, Cancer, CVA, ARF, Chemo, Hep., AIDS, mental health diagnosis, sleep apnea, morbid obesity)? @ -None Was patient admitted / discharged? Hospital course, mention meds given and route, prescriptions, significant lab abnormalities, going to OR and other pertinent info. @ -Follow-up with orthopedics. Undiagnosed new problem with uncertain prognosis? @ -No Drug Therapy requiring intensive monitoring for toxicity (Heparin, Nitro, Insulin, Cardizem)? @ -No Were any procedures done? @ -No Diagnosis/symptom? @ -Left metacarpal fracture Acute, or Chronic, or Acute on Chronic? @ -Acute] Uncomplicated (without systemic symptoms) or Complicated (systemic symptoms)? @ -Uncomplicated Side effects of treatment? @ -No Exacerbation, Progression, or Severe Exacerbation? @ -No Poses a threat to life or bodily function? How? (Chest pain, [place], [place], pneumonia, PE, COPD, DKA, ARF, appy, cholecystitis, CVA, Diverticulitis, Homicidal, Suicidal, threat to staff... and all critical care pts) @ -No Disposition Clinical Impression: Fracture of fifth metacarpal bone of right hand Disposition: HOME SELF-CARE Condition: Stable Additional Instructions: Please return to the Emergency Department if symptoms worsen or any other concerns. Is patient prescribed a controlled substance at d/c from ED?: No Referrals: None,Stated [Primary Care Provider] - 1-2 days Lora Kapoor DO [Doctor of Osteopathic Medicine] - 1-2 days John Lancaster DO [REFERRING] - 1-2 days Time of Disposition: 10:09
[2024-07-04] MEDS: ACET/COD 300 MG/30 MG STARTER PACK 6 TAB BTL PO STA (10:11)
[2024-07-04 10:15] VITALS: BP 146/92; PULSE 76; RESP 18; TEMP 98
== END 2024-07-04 10:14 | disposition home or self-care (01) ==
LOC: EC 08:35
DX: S62.306A Unspecified fracture of fifth metacarpal bone, right hand, initial encounter for closed fracture (principal); Z87.891 Personal history of nicotine dependence; Z91.030 Bee allergy status; Z88.0 Allergy status to penicillin; X58.XXXA Exposure to other specified factors, initial encounter
CPT/HCPCS: 99283; 96372; J1885